=== PATIENT | female | born 1955 | race Two or more races ===

== ENCOUNTER 2020-08-25 08:22 | Outpatient (REF) | payer OTHER, SELFPAY ==
--- NOTE | 2020-08-25 | MM_ITS ---
EXAMINATION: MM SCREENING DIGITAL BREAST TOMOSYNTHESIS, BILATERAL CLINICAL INFORMATION: Screening. Asymptomatic. The lifetime risk of breast cancer based on the Tyrer-Cuzick Model is 8%. COMPARISON: Mammography: 04/13/2019, 03/27/2018, 05/19/2017 TECHNIQUE: Digital breast tomosynthesis is performed in both the craniocaudal and mediolateral oblique views along with computer-aided detection (CAD). Synthesized 2D images are generated from the tomosynthesis. Additional left MLO view is provided. FINDINGS: There are scattered areas of fibroglandular density (ACR BI-RADS breast composition Category b). There are no significant masses, abnormal calcifications, or other abnormalities. The axilla and skin contours are unremarkable. MM/MM tomosynthesis screening BI IMPRESSION: No significant changes from prior studies. ASSESSMENT: BI-RADS 1: Negative RECOMMENDATION: Routine annual mammography screening. This patient's information was entered into a reminder system with a target due date for their next mammogram.
== END 2020-08-25 08:23 | disposition home or self-care (01) ==
LOC: HO.MAMMO 08:22
PROVIDERS: PCP Internal Medicine; Visit Provider Internal Medicine
DX: Z12.31 Encounter for screening mammogram for malignant neoplasm of breast (principal)
CPT/HCPCS: 77063; 77067

== ENCOUNTER 2021-04-18 12:51 | Emergency (ER) | payer MEDICARE, SELFPAY ==
[2021-04-18 12:57] VITALS: BP 168/97; PULSE 75; RESP 16; TEMP 36.8; O2SAT 97; BMI 25.1
[2021-04-18 13:57] LABS: MANUAL DIFF FLAG NO
[2021-04-18 14:00] LABS: Glucose Urine UA NEG (NEG); Leukocyte Esterase Urine NEG (NEG); Nitrite Urine NEG (NEG); Specific Gravity - Urine >= 1.030 (1.005-1.025); Urine Blood TRACE (NEG); Urine Ketones NEG (NEG); Urine Protein NEG (NEG-TRACE)
[2021-04-18 14:00] LABS: Basophils Absolute Auto 0.1 X10*3/uL (0.0-0.2); Basophils Percent Auto 0.6 % (0-2); Eosinophils Absolute Auto 0.3 X10*3/uL (0.0-0.4); Eosinophils Percent Auto 3.5 % (0-4); Hematocrit 42.1 % (37-47); Hemoglobin 14.2 g/dl (12.0-16.0); Imm Gran Abs Auto 0.03 X10*3/uL (0.00-0.03); Imm Gran Pct Auto 0.3 % (0.0-0.4); Lymphocytes Absolute Auto 2.4 X10*3/uL (1.2-4.9); Lymphocytes Percent Auto 25.4 % (20-40); Mean Corpuscular HGB Conc 33.7 g/dl (31.0-35.0); Mean Corpuscular Hemoglobin 31.2 pg (27.0-33.0); Mean Corpuscular Volume 92.5 fL (80-98); Mean Platelet Volume 11.8 fL (9.4-12.3); Monocytes Absolute Auto 0.7 X10*3/uL (0.1-1.2); Monocytes Percent Auto 7.3 % (2-11); Neutrophils Percent Auto 62.9 % (45-73); Platelet Count 311 X10*3/uL (160-400); Red Blood Count 4.55 X10*6/uL (4.20-5.50); Red Cell Distribution Width 12.4 % (11.0-16.0); White Blood Count 9.5 X10*3/uL (4.8-10.8)
[2021-04-18 14:03] LABS: Appearance Urine HAZY; Color Urine YELLOW
[2021-04-18 14:21] LABS: COVID-19 Test Negative (Negative); IDNOW Serial# 9DD0AD1C
[2021-04-18 14:27] LABS: Anion Gap 11 (12-20); Blood Urea Nitrogen 15 mg/dL (9-16); Calcium 10.2 mg/dL (8.4-10.2); Carbon Dioxide 27 mmol/L (22-29); Chloride 106 mmol/L (96-108); Creatinine Clr Calc Pharmacy 68.3; Estimated Glomerular Filt Rate > 60; Glucose Random 98 mg/dL (60-115); Potassium 4.4 mmol/L (3.3-5.1); Sodium 140 mmol/L (135-145)
[2021-04-18 14:38] LABS: Bacteria Urine TRACE /LPF; Calcium Oxalate Crystals Urine 3+ /LPF; Mucus Urine 1+ /LPF; RBC Urine 0-2 /HPF (0); Squamous Epithelial Cell Urine TRACE /LPF; WBC Urine 0-2 /HPF (0-4)
--- NOTE | 2021-04-18 14:40 | ED_ITS ---
HPI - Weakness General Chief complaint: Weakness Stated complaint: weakness Time Seen by Provider: 04/18/21 13:50 Source: patient Mode of arrival: ambulatory Limitations: no limitations History of Present Illness HPI Narrative: 65-year-old female here with complaints of abnormal labs. Patient tells me that she was in [place] 3 weeks ago and was told that her kidney function was abnormal. She resides in [place]. She completed her vacation and returned here and would like her labs rechecked. She is complai yevgeniy of some fatigue but denies any other complaints. Related Data Previous Rx's Medication Instructions Recorded omeprazole 20 mg capsule,delayed 20 mg PO DAILY #90 cap 07/17/20 release ibuprofen 800 mg tablet 800 mg PO TID #90 tab 09/24/20 loratadine 10 mg tablet 10 mg PO DAILY PRN 90 Days #90 tab 10/18/20 Allergies Allergy/AdvReac Type Severity Reaction Status Date / Time Sulfa (Sulfonamide Allergy Unknown RASH Unverified 01/14/21 11:29 Antibiotics) [SULFA (SULFONAMIDE ANTIBIOTICS)] cats Allergy Unknown Uncoded 01/14/21 11:29 dust Allergy Unknown Uncoded 01/14/21 11:29 N.K.D.A. Allergy Unknown Uncoded 01/14/21 11:29 pollon Allergy Unknown Uncoded 01/14/21 11:29 Review of Systems Review of Systems: Yes all other systems are reviewed and are negative Constitutional: Constitutional: Reports no additional constitutional complaints, Denies body ache(s), Denies chills, Reports fatigue, Denies fever(s), Denies headache(s) and Denies weakness Eyes: Eyes: Reports no additional eye complaints and Denies change in vision ENT: Reports system reviewed and no additional complaints, except as documented, Denies dizziness, Denies headache(s), Denies nasal congestion, Denies nasal discharge and Denies neck pain Cardiovascular: Cardiovascular: Reports no additional cardiovascular c omplaints, Denies chest pain, Denies leg edema and Denies dyspnea Respiratory: Respiratory: Reports no additional respiratory complaints, Denies cough and Denies dyspnea Gastrointestinal: Gastrointestinal: Reports no additional gastrointestinal complaints, Denies abdominal pain, Denies diarrhea, Denies nausea and Denies vomiting Genitourinary: Genitourinary: Reports no additional female genitourinary complaints and Denies urinary incontinence Musculoskeletal: Musculoskeletal: Reports no additional musculoskeletal complaints, Denies back pain, Denies arthralgias, Denies joint swelling, Denies neck pain, Denies numbness and Denies tingling Integumentary/Breasts: Skin/Breast: Reports system reviewed and no additional complaints, except as docu and Denies rash Neurologic: Reports system reviewed and no additional complaints, except as documented, Denies Abnormal speech present, Denies dizziness, Denies headache(s), Denies numbness, Denies tingling and Denies weakness Endocrine: Endocrine: Reports fatigue [facility] Past Medical History Attestation statement: The following information was validated with the patient. Source: old records reviewed and nursing notes reviewed Medical History No known health problems Social History Social History Advance Directives: No Advance Directives Information Provided: No Physical Exam Vital Signs: Vital Signs: Last Vital Signs Temp 98.2 F 04/18/21 12:57 Pulse 75 04/18/21 12:57 Resp 16 04/18/21 12:57 BP 168/97 H 04/18/21 12:57 Pulse Ox 97 04/18/21 12:57 Body Mass Index 25.1 Const: General: cooperative, healthy appearing, comfortable and no acute distress Orientation/consciousness: patient oriented x3 Limitations: no limitations HENMT: Head: Yes normal to inspection Ears: hearing grossly normal bilaterally General nose exam: Normal external nose present Face and sinus: Yes normal facial exam Mouth: Normal oral and palatal mucosa present Throat: Yes posterior oropharynx normal Eyes: General: appearance normal, both eyes and all related structures Pupils: Equal, round and reactive pupils present Neck: Neck: Yes normal visual inspection Chest: Chest palpation & inspection: normal inspection of the chest Resp: Effort & Inspection: normal respiratory effort Auscultation: clear to auscultation bilaterally Cardio: Rate: regular rate Rhythm: regular rhythm Peripheral pulses: Peripheral pulses 2+ throughout GI: Inspection: Yes normal to inspection Palpation (GI): Soft to palpation and nontender Auscultation: normal bowel sounds Back/Spine/Pelvis: Thoracic/Lumbar Spine: thoracic and lumbar spine normal to inspection Skin: General skin exam: no rashes or lesions noted Neuro: General: patient oriented x3, no focal motor deficits and normal sensation to monofilament Cranial nerves: Yes Equal, round and reactive pupils present Cognition (Neuro): normal cognition Speech: No Abnormal speech present Gait exam (Neuro): Normal gait present Motor exam (neuro): 5/5 motor strength present throughout Extrem: General: Yes normal to inspection Course Course Course Narrative: 65-year-old female here looking for repeat renal function.. She tells me that she had her labs checked a couple weeks ago in [place] and was told that her kidney function was abnormal and she should get a recheck. Will recheck labs. Only complaint is fatigue. Hemodynamically stable. 1530-labs unremarkable. Reviewed with patient. Reviewed worrisome signs symptoms of when to return to the emergency department. Comfortable discharge home. MDM - Weakness Medical Records Attestation: I reviewed the patient's medical records. Lab Data Attestation: I reviewed the patient's lab results. Result diagrams: 04/18/21 13:45 04/18/21 13:45 Labs: Lab Results 04/18/21 04/18/21 04/18/21 Range/Units 13:35 13:45 13:45 WBC 9.5 (4.8-10.8) X10*3/uL RBC 4.55 (4.20-5.50) X10*6/uL Hgb 14.2 (12.0-16.0) g/dl Hct 42.1 (37-47) % MCV 92.5 (80-98) fL MCH 31.2 (27.0-33.0) pg MCHC 33.7 (31.0-35.0) g/dl RDW 12.4 (11.0-16.0) % Plt Count 311 (160-400) X10*3/uL MPV 11.8 (9.4-12.3) fL Immature Gran % (Auto) 0.3 (0.0-0.4) % Neut % (Auto) 62.9 (45-73) % Lymph % (Auto) 25.4 (20-40) % [place] % (Auto) 7.3 (2-11) % Eos % (Auto) 3.5 (0-4) % Baso % (Auto) 0.6 (0-2) % Lymph # (Auto) 2.4 (1.2-4.9) X10*3/uL [place] # (Auto) 0.7 (0.1-1.2) X10*3/uL Eos # (Auto) 0.3 (0.0-0.4) X10*3/uL Baso # (Auto) 0.1 (0.0-0.2) X10*3/uL Abs Immat Gran (auto) 0.03 (0.00-0.03) X10*3/uL Absolute Neuts (auto) 6.0 (2.0-8.3) X10*3/uL Absolute Nucleated RBC 0.000 (0.0-0.012) X10*3/uL Nucleated RBC % (auto) 0.0 (0.0-0.2) /100WBC Sodium 140 (135-145) mmol/L Potassium 4.4 (3.3-5.1) mmol/L Chloride 106 (96-108) mmol/L Carbon Dioxide 27 (22-29) mmol/L Anion Gap 11 L (12-20) BUN 15 (9-16) mg/dL Creatinine 0.78 (0.5-1.4) mg/dL Estim Creat Clear Calc 68.3 Estimated GFR > 60 Random Glucose 98 (60-115) mg/dL Calcium 10.2 (8.4-10.2) mg/dL Urine Color YELLOW Urine Appearance HAZY Urine pH 6.0 (5.0-8.0) Ur Specific Sal[place] Path >= 1.030 H (1.005-1.025) Urine Protein NEG (NEG-TRACE) MG/DL Urine Glucose (UA) NEG (NEG) MG/DL Urine Ketones NEG (NEG) MG/DL Urine Blood TRACE (NEG) Urine Nitrite NEG (NEG) Ur Leukocyte Esterase NEG (NEG) Urine RBC 0-2 (0) /HPF Urine WBC 0-2 (0-4) /HPF Ur Squamous Epith Cells TRACE /LPF Calcium Oxalate Crystal 3+ /LPF Urine Bacteria TRACE /LPF Urine Mucus 1+ /LPF COVID-19 (CRESCENCIO) (Negative) COVID-19 Clin Com 04/18/21 Range/Units 13:45 WBC (4.8-10.8) X10*3/uL RBC (4.20-5.50) X10*6/uL Hgb (12.0-16.0) g/dl Hct (37-47) % MCV (80-98) fL MCH (27.0-33.0) pg MCHC (31.0-35.0) g/dl RDW (11.0-16.0) % Plt Count (160-400) X10*3/uL MPV (9.4-12.3) fL Immature Gran % (Auto) (0.0-0.4) % Neut % (Auto) (45-73) % Lymph % (Auto) (20-40) % [place] % (Auto) (2-11) % Eos % (Auto) (0-4) % Baso % (Auto) (0-2) % Lymph # (Auto) (1.2-4.9) X10*3/uL [place] # (Auto) (0.1-1.2) X10*3/uL Eos # (Auto) (0.0-0.4) X10*3/uL Baso # (Auto) (0.0-0.2) X10*3/uL Abs Immat Gran (auto) (0.00-0.03) X10*3/uL Absolute Neuts (auto) (2.0-8.3) X10*3/uL Absolute Nucleated RBC (0.0-0.012) X10*3/uL Nucleated RBC % (auto) (0.0-0.2) /100WBC Sodium (135-145) mmol/L Potassium (3.3-5.1) mmol/L Chloride (96-108) mmol/L Carbon Dioxide (22-29) mmol/L Anion Gap (12-20) BUN (9-16) mg/dL Creatinine (0.5-1.4) mg/dL Estim Creat Clear Calc Estimated GFR Random Glucose (60-115) mg/dL Calcium (8.4-10.2) mg/dL Urine Color Urine Appearance Urine pH (5.0-8.0) Ur Specific Sal[place] Path (1.005-1.025) Urine Protein (NEG-TRACE) MG/DL Urine Glucose (UA) (NEG) MG/DL Urine Ketones (NEG) MG/DL Urine Blood (NEG) Urine Nitrite (NEG) Ur Leukocyte Esterase (NEG) Urine RBC (0) /HPF Urine WBC (0-4) /HPF Ur Squamous Epith Cells /LPF Calcium Oxalate Crystal /LPF Urine Bacteria /LPF Urine Mucus /LPF COVID-19 (CRESCENCIO) Negative (Negative) COVID-19 Clin Com See Note Discharge Plan Discharge Clinical Impression: Fatigue Patient Disposition: Home, Self-Care Instructions: Fatigue (ED) Additional Instructions: Lab work and COVID testing and urine are all negative. Follow-up with her primary care doctor Prescriptions: No Action omeprazole 20 mg capsule,delayed release(DR/EC) 20 mg PO DAILY Qty: 90 RF: 2 ibuprofen 800 mg tablet 800 mg PO TID Qty: 90 RF: 3 loratadine 10 mg tablet 10 mg PO DAILY PRN (Reason: allergy symptoms) 90 Days Qty: 90 RF: 3 Referrals: Jennie Rodriguez MD [Primary Care Provider] - 2 days Interventions: ED Discharge Assessment Last Done: 04/18/21 15:21 Discharge Date/Time: 04/18/21 15:21 Print Language: German
== END 2021-04-18 15:21 | disposition home or self-care (01) ==
PROVIDERS: Emergency Provider Emergency Medicine; PCP Internal Medicine
DX: R53.83 Other fatigue (principal); Z20.822 Contact with and (suspected) exposure to COVID-19
CPT/HCPCS: 36415; 80048; 81001; 81003; 85025; 87635; 99283; 99284

== ENCOUNTER 2022-02-21 08:58 | Outpatient (REF) | payer OTHER, SELFPAY ==
--- NOTE | ~2022-02-21 | MR_ITS ---
EXAMINATION: MRI BRAIN WITHOUT CONTRAST CLINICAL INFORMATION: 66-year-old with history of previous trauma. Headaches, unspecified. COMPARISON: None. TECHNIQUE: Multiplanar multisequence MR imaging of the brain was done without IV contrast. FINDINGS: Brain Volume: Within normal limits within the limitations of a qualitative assessment. Structural: No malformations. Brain and Meninges: DWI sequence demonstrates no restricted diffusion. Specifically, there is no evidence for acute or subacute cerebral ischemia. Scattered patchy and punctate foci of FLAIR/T2 signal hyperintensity noted in the subcortical and deeper periventricular white matter of both cerebral hemispheres, likely reflecting chronic ischemic microangiopathy. Gradient refocused imaging demonstrates no evidence for hemorrhage, hemosiderin staining or abnormal mineral deposition. No extra-axial fluid collections, space-occupying process or mass effect are identified. Ventricles and Subarachnoid Spaces: The ventricular system and subarachnoid spaces are within normal limits without hydrocephalus. Orbital Structures: The visualized orbital structures are grossly unremarkable within the limitations of the study. Vascular: Signal voids are noted in the visualized major intracranial vessels. Osseous Structures, Sinuses/Mastoids, Extracranial Soft Tissues: Nonspecific retained secretions in the right mastoid are noted. Osseous marrow signal intensity appears homogenous. MR/MR head/brain wo con IMPRESSION: 1. Findings consistent with chronic ischemic microangiopathy in the white matter of both cerebral hemispheres with no evidence for acute or subacute cerebral ischemia, hemorrhage, extra-axial fluid collection, space-occupying process, mass effect or hydrocephalus. 2. Nonspecific retained secretions in the right mastoid.
== END 2022-02-21 08:59 | disposition home or self-care (01) ==
LOC: HO.MRI 08:58
PROVIDERS: PCP Internal Medicine; Visit Provider Internal Medicine
DX: R51.9 Headache, unspecified (principal)
CPT/HCPCS: 70551

== ENCOUNTER 2022-08-09 07:04 | Outpatient (REF) | payer OTHER, SELFPAY ==
[2022-08-09 07:50] LABS: Alanine Aminotransferase 29 U/L (0-31); Albumin Level 4.3 g/dL (3.5-5.0); Alkaline Phosphatase 105 U/L (39-117); Anion Gap 14 (12-20); Aspartate Amino Transferase 22 U/L (5-31); Bilirubin Total 0.5 mg/dL (0.0-1.0); Blood Urea Nitrogen 12 mg/dL (9-16); Calcium 9.8 mg/dL (8.4-10.2); Carbon Dioxide 25 mmol/L (22-29); Chloride 106 mmol/L (96-108); Cholesterol 181 mg/dL; Estimated Glomerular Filt Rate > 60; Glucose Fasting 101 mg/dL (60-99); HDL Cholesterol 53 mg/dL; LDL Cholesterol Calculated 109 mg/dl; Potassium 4.5 mmol/L (3.3-5.1); Sodium 140 mmol/L (135-145); Total Protein 7.7 g/dL (6.5-8.0); Triglycerides 96 mg/dL
[2022-08-09 08:13] LABS: Thyroid Stimulating Hormone 1.64 uIU/mL (0.32-4.0)
== END 2022-08-09 07:05 | disposition home or self-care (01) ==
LOC: HO.LAB 07:04
PROVIDERS: Visit Provider Internal Medicine
DX: E66.3 Overweight (principal); E78.5 Hyperlipidemia, unspecified
CPT/HCPCS: 36415; 80053; 80061; 84443

== ENCOUNTER 2022-09-13 07:33 | Outpatient (REF) | payer OTHER, SELFPAY ==
--- NOTE | ~2022-09-13 | MM_ITS ---
EXAMINATION: BONE DENSITOMETRY CLINICAL INDICATION: Menopause. COMPARISON: Baseline BD dated 02/28/2014. TECHNIQUE: Using a [employer] DXA System (software version: 13.1) manufactured by [employer], dual-energy x-ray absorptiometry was performed of the lumbar spine and left hip. The images are of good technical quality. Summary results are attached. FINDINGS: AP SPINE L1-L4: Current: BMD 0.953 g/cm2, Z-score -0.7, T-score -1.9, osteopenia, 3.9% decrease from baseline (<5% change is not significant). Baseline: BMD 0.992 g/cm2. LEFT FEMUR, NECK: Current: BMD 0.843 g/cm2, Z-score -0.2, T-score -1.4, osteopenia. Baseline: BMD 0.972 g/cm2. LEFT FEMUR, TOTAL: Current: BMD 0.932 g/cm2, Z-score 0.3, T-score -0.6, normal, 6.1% decrease from baseline (<5% change is not significant). Baseline: BMD 0.993 g/cm2. IDENTIFIED RISK FACTORS: Menopause, osteoporosis, rheumatoid arthritis. HISTORY OF FRACTURE: None listed. MEDICATIONS: Vitamin D. MM/XR DEXA axial skeleton IMPRESSION: 1. DIAGNOSIS: Osteopenia based on the lowest T-score value of -1.9 in the lumbar spine applying World Health Organization criteria. 2. 10-YEAR FRACTURE RISK PREDICTION, FRAX: Major osteoporotic fracture (clinical spine, forearm, hip or shoulder) 6.2%. Hip fracture 0.7%. 3. Treatment Recommendations: NOF guidelines recommend consideration for treatment in postmenopausal women and men age 50 and older presenting with the following: -A hip or vertebral (clinical or morphometric) fracture. -T-score less than or equal to -2.5 at the femoral neck or spine after appropriate evaluation to exclude secondary causes. -Low bone mass at the hip or spine and a 10-year fracture probability by FRAX of greater than or equal to 3% for hip fracture or greater than or equal to 20% for major osteoporotic fracture based on the [place] adapted WHO algorithm. 4. Other Recommendations: All treatment decisions require clinical judgment and consideration of individual patient factors, including patient preferences, comorbidities, previous drug use, risk factors not captured in the FRAX model (e.g. frailty, falls, vitamin D deficiency, increased bone turnover, interval significant decline in bone density) and possible under or overestimation of fracture risk by FRAX. Additional medical evaluation for secondary cause of low bone mineral density may be appropriate. FUTURE SCAN RECOMMENDATION: People with diagnosed cases of osteoporosis or at high risk for fracture should have regular bone mineral density tests. For patients eligible for Medicare, routine testing is allowed once every 2 years. The testing frequency can be increased to one year for patients who have rapidly progressing disease, those who are receiving or discontinuing medical therapy to restore bone mass, or have additional risk factors.
--- NOTE | ~2022-09-13 | MM_ITS ---
EXAMINATION: MM SCREENING DIGITAL BREAST TOMOSYNTHESIS, BILATERAL CLINICAL INFORMATION: Screening. Asymptomatic. The lifetime risk of breast cancer based on the Tyrer-Cuzick Model is 7%. COMPARISON: Mammography: 03/13/2021 ([facility]aud[facility], [place]), 08/25/2020, 04/13/2019 TECHNIQUE: Digital breast tomosynthesis is performed in both the craniocaudal and mediolateral oblique views along with computer-aided detection (CAD). Synthesized 2D images are generated from the tomosynthesis. FINDINGS: There are scattered areas of fibroglandular density (ACR BI-RADS breast composition Category b). There are no significant masses, abnormal calcifications, or other abnormalities. Background stromal and fibroglandular densities are similar to prior studies. No developing density or interval architectural abnormality. There is a dermal lesion again noted anterior lower inner right breast similar to prior studies. The axilla are unremarkable. No significant changes. MM/MM tomosynthesis screening BI IMPRESSION: No mammographic evidence of malignancy. ASSESSMENT: BI-RADS 2: Benign RECOMMENDATION: Routine annual mammography screening. This patient's information was entered into a reminder system with a target due date for their next mammogram.
== END 2022-09-13 07:34 | disposition home or self-care (01) ==
LOC: HO.MAMMO 07:33
PROVIDERS: PCP Internal Medicine; Visit Provider Internal Medicine
DX: Z12.31 Encounter for screening mammogram for malignant neoplasm of breast (principal); Z13.820 Encounter for screening for osteoporosis; Z78.0 Asymptomatic menopausal state
CPT/HCPCS: 77063; 77067; 77080

== ENCOUNTER 2022-10-04 13:09 | Emergency (ER) | payer OTHER, SELFPAY ==
--- NOTE | ~2022-10-04 | XR_ITS ---
EXAMINATION: XR CHEST CLINICAL INFORMATION: Cough COMPARISON: Chest radiographs 07/16/2017, 01/07/2013 TECHNIQUE: 2 views of the chest were obtained. FINDINGS: There is no airspace consolidation or air bronchograms. No groundglass opacity or effusion. The heart is normal in size. The hilar and mediastinal contours and bony structures are unremarkable. XR/XR chest 2V IMPRESSION: Unremarkable examination.
--- NOTE | ~2022-10-04 | XR_ITS ---
EXAMINATION: XR SOFT TISSUE NECK CLINICAL INDICATION: Difficulty swallowing. Cough. COMPARISON: None TECHNIQUE: 2 views of the soft tissue neck were obtained. FINDINGS: There is normal vallecula, epiglottis, and area epiglottic folds. Subglottic airway is unremarkable. No prevertebral soft tissue swelling. There is straightening of the cervical lordosis. Vertebral bodies are normal in height. There are degenerative disc changes C5-C6 and lesser at C4-C5. The lung apices are clear. XR/XR soft tissue neck IMPRESSION: Unremarkable soft tissue neck.
[2022-10-04 14:35] VITALS: BP 219/123; PULSE 100; RESP 19; TEMP 36.6; O2SAT 98; BMI 29.2
--- NOTE | 2022-10-04 14:36 | ED.URI ---
HPI - URI/Sore Throat General Chief Complaint: General Medical <Jasmyne Watson CNP - Last Filed: 10/04/22 14:41> Stated Complaint: dry mouth, sore throat <Jasmyne Watson CNP - Last Filed: 10/04/22 14:41> Time Seen by Provider: 10/04/22 15:56 <Jasmyne Watson CNP - Last Filed: 10/04/22 14:41> Source: patient <Lexis López NP - Last Filed: 10/05/22 00:15> Mode of arrival: ambulatory <RUI George Last Filed: 10/05/22 00:15> Limitations: no limitations <RUI George Last Filed: 10/05/22 00:15> History of Present Illness HPI Narrative: 66-year-old female presents for one-month of upper respiratory symptoms, sore throat, dry mouth, difficulty swallowing because of pain, sinus pressure, and cough. She does not report fevers, chills, abdominal pain, nausea, vomiting, diarrhea, chest pain or pressure, palpitations, or shortness of breath on exertion. <Lexis López NP - Last Filed: 10/05/22 00:15> MD elicited complaint: cough, sore throat and nasal congestion <RUI George Last Filed: 10/05/22 00:15> Onset (ago): month(s) (1) <RUI George Last Filed: 10/05/22 00:15> Consistency: constant and progressively worsening <RUI George Last Filed: 10/05/22 00:15> Severity: moderate <RUI George Last Filed: 10/05/22 00:15> Description of mucous: clear <RUI George Last Filed: 10/05/22 00:15> Able to tolerate fluids by mouth: Yes <RUI George Last Filed: 10/05/22 00:15> Exacerbating factors: swallowing, speaking and deep breaths <RUI George Last Filed: 10/05/22 00:15> Relieving factors: nothing <Lexis López NP - Last Filed: 10/05/22 00:15> Context: sick contacts <Lexis López NP - Last Filed: 10/05/22 00:15> Associated symptoms: voice changes, headache, rhinorrhea, nasal congestion, sore throat and cough <Lexis López NP - Last Filed: 10/05/22 00:15> Treatments prior to arrival: none <Lexis López NP - Last Filed: 10/05/22 00:15> Related Data Home Medications: Previous Rx's Medication Instructions Recorded loratadine 10 mg tablet 10 mg PO DAILY PRN allergy 05/22/22 symptoms 90 days #90 tabs ibuprofen 800 mg tablet 800 mg PO Q8H PRN pain 30 days #90 05/23/22 tabs omeprazole 20 mg capsule,delayed 20 mg PO DAILY 90 days #90 caps 05/23/22 release fluticasone propionate 50 1 spray intranasal DAILY #16 mL 08/11/22 mcg/actuation nasal spray,suspension calcium carbonate 500 mg calcium 500 mg PO BID 90 days #180 tabs 09/14/22 (1,250 mg) tablet (Oyster Shell Calcium) cholecalciferol (vitamin D3) 50 50 mcg PO DAILY 90 days #90 tabs 09/14/22 mcg (2,000 unit) tablet azithromycin 250 mg tablet 250 mg PO DAILY 4 days #4 tabs 10/04/22 <Jasmyne Watson CNP - Last Filed: 10/04/22 14:41> Allergies/Adverse Reactions: Allergies Allergy/AdvReac Type Severity Reaction Status Date / Time Sulfa (Sulfonamide Allergy Intermediate RASH Verified 01/24/22 16:34 Antibiotics) [SULFA (SULFONAMIDE ANTIBIOTICS)] cats Allergy Intermediate rash Uncoded 01/24/22 16:34 dust Allergy Intermediate rash, itch Uncoded 01/24/22 16:34 pollon Allergy Intermediate rash, itch Uncoded 01/24/22 16:34 <Jasmyne Watson CNP - Last Filed: 10/04/22 14:41> Review of Systems Review of Systems: Constitutional: No Fever, no Chills, positive fatigue, positive Malaise ENT/Mouth: positive sore throat, positive runny nose, positive sinus pressure Eyes: No Discharge Cardiovascular: No Chest Pain, No SOB Respiratory: Positive Cough, No Sputum, No Wheezing, No Dyspnea Gastrointestinal: No Nausea, No Vomiting, No Diarrhea Musculoskeletal: positive Myalgia Skin: No rash Neuro: No Headache <Lexis Lpóez NP - Last Filed: 10/05/22 00:15> Yes all other systems are reviewed and are negative <Lexis López NP - Last Filed: 10/05/22 00:15> PMFSH Past Medical History Attestation statement: The following information was validated with the patient. <Lexis López NP - Last Filed: 10/05/22 00:15> Source: old records reviewed <Lexis López NP - Last Filed: 10/05/22 00:15> Medical History: Medical History Allergic rhinitis Chronic fatigue Daily headache Elevated blood pressure reading without diagnosis of hypertension GERD (gastroesophageal reflux disease) Hypovitaminosis D Muscle spasm Overweight (BMI 25.0-29.9) Skin lesion <Jasmyne Watson CNP - Last Filed: 10/04/22 14:41> Surgical History: Surgical History No pertinent past surgical history <Jasmyne Watson CNP - Last Filed: 10/04/22 14:41> Family History Family History: Family History Mother No problems noted. Father Diabetes Other Mental health disorder <Jasmyne Watson CNP - Last Filed: 10/04/22 14:41> Social History Social History: Social History Housing: Apartment Alcohol intake: never Patient Tobacco Use Status: Former Tobacco user Tobacco use type: Cigarette Smoked in Last 30 Days: No e-Cigarette/Vaping Use: Never Used Second Hand Smoke Exposure: No Use of substances other than those prescribed or required for medical reasons: No Any prior treatment program specific to substance use: No Advance Directives: No Advance Directives Information Provided: No service: No Current occupational status: disabled Cognitive needs: No Hearing needs: No Vision needs: Yes <Jasmyne Watson CNP - Last Filed: 10/04/22 14:41> Physical Exam Vital Signs: Vital Signs: Last Vital Signs Temp 98.2 F 10/04/22 15:09 Pulse 94 10/04/22 15:09 Resp 12 10/04/22 15:09 BP 207/112 H 10/04/22 15:09 Pulse Ox 97 10/04/22 15:09 O2 Del Method 10/04/22 15:09 BMI result Body Mass Index 29.2 <Jasmyne WatsonMELISA - Last Filed: 10/04/22 14:41> Vital Signs: Last Vital Signs Temp 98.2 F 10/04/22 15:09 Pulse 94 10/04/22 15:09 Resp 12 10/04/22 15:09 BP 207/112 H 10/04/22 15:09 Pulse Ox 97 10/04/22 15:09 O2 Del Method 10/04/22 15:09 BMI result Body Mass Index 29.2 <Lexis López NP - Last Filed: 10/05/22 00:15> Appearance: Alert. Oriented X3. No acute distress. Eyes: Pupils equal, round and reactive to light. ENT: Pharynx normal. Tenderness to the maxillary sinuses. No mastoid tenderness. Neck: Normal inspection. Neck supple. No vertebral tenderness or step-offs. CVS: Normal heart rate and rhythm. Pulses normal. Respiratory: No respiratory distress. Breath sounds normal. Abdomen: Soft and nontender. Skin: Skin warm and dry. Normal skin color. Normal skin turgor. Extremities: No lower extremity edema. Gait well balance well coordinated. Neuro: No motor deficit. No sensory deficit. Cranial nerves 2-12 intact. <Lexis López NP - Last Filed: 10/05/22 00:15> Course Course Course Narrative: This is an RME: Additional HPI, ROS, PE not included below will be deferred to primary provider. Patient is a 66-year-old female who presents emergency department complaints of sore throat, intermittent difficulty swallowing, and dry mouth x 1 month, also reporting cough with bloody sputum, congestion. She states at times she feels like yesterday swollen, and she is a thyroid nodule, has not followed up in regards to this. Noted to be hypertensive denies history of this. Plan: Labs, EKG, viral testing, XR chest, XR soft tissue neck <Jasmyne Watson CNP - Last Filed: 10/04/22 14:41> This is an RME: Additional HPI, ROS, PE not included below will be deferred to primary provider. Patient is a 66-year-old female who presents emergency department complaints of sore throat, intermittent difficulty swallowing, and dry mouth x 1 month, also reporting cough with bloody sputum, congestion. She states at times she feels like yesterday swollen, and she is a thyroid nodule, has not followed up in regards to this. Noted to be hypertensive denies history of this. Plan: Labs, EKG, viral testing, XR chest, XR soft tissue neck 17:27 x-rays are negative for acute findings requiring emergent intervention. Will treat for sinusitis with azithromycin. No indication of epiglottitis or abscesses. Patient does understand that she must control her blood pressure, although she is not interested and taking blood pressure medications at this time. I did have multiple conversations with her regarding her elevated blood pressures, and will refer her back to her primary care physician for hypertension. She does understand she is higher risk for stroke and organ dysfunction if she does not control her blood pressure. Patient verbalized understanding of and agrees to plan of care discharge home. Verbalized understanding of signs symptoms indicating need for emergent intervention. motor vehicle parts interpreter utilized for all corresponded. Google translate utilize her discharge instructions. <Lexis López NP - Last Filed: 10/05/22 00:15> Medical Decision Making Differential Diagnosis Differential Diagnoses: The differential diagnosis associated with the presentation includes <Lexis López NP - Last Filed: 10/05/22 00:15> URI, sinusitis, COVID, influenza, RSV <Lexis López NP - Last Filed: 10/05/22 00:15> Lab Data MDM Lab Attestation statement: I reviewed the patient's lab results. <Lexis López NP - Last Filed: 10/05/22 00:15> Result Diagrams: 10/04/22 14:56 10/04/22 14:56 <Jasmyne Watson CNP - Last Filed: 10/04/22 14:41> Labs: Lab Results 01/06/23 01/06/23 01/06/23 Range/Units 14:50 14:50 14:56 WBC 12.8 H (4.8-10.8) X10*3/uL RBC 4.62 (4.20-5.50) X10*6/uL Hgb 14.1 (12.0-16.0) g/dl Hct 41.9 (37.0-47.0) % MCV 90.7 (80.0-98.0) fL MCH 30.5 (27.0-33.0) pg MCHC 33.7 (31.0-35.0) g/dl RDW 12.9 (11.0-16.0) % Plt Count 321 (160-400) X10*3/uL MPV 10.8 (9.4-12.3) fL Immature Gran % (Auto) 0.3 (0.0-0.4) % Neut % (Auto) 58.0 (45-73) % Lymph % (Auto) 28.1 (20-40) % [place] % (Auto) 8.2 (2-11) % Eos % (Auto) 4.6 H (0-4) % Baso % (Auto) 0.8 (0-2) % Lymph # (Auto) 3.6 (1.2-4.9) X10*3/uL [place] # (Auto) 1.1 (0.1-1.2) X10*3/uL Eos # (Auto) 0.6 H (0.0-0.4) X10*3/uL Baso # (Auto) 0.1 (0.0-0.2) X10*3/uL Abs Immat Gran (auto) 0.04 H (0.00-0.03) X10*3/uL Absolute Neuts (auto) 7.4 (2.0-8.3) x10*3/uL Absolute Nucleated RBC 0.000 (0.0-0.012) X10*3/uL Nucleated RBC % (auto) 0.0 (0.0-0.2) /100WBC Sodium (135-145) mmol/L Potassium (3.3-5.1) mmol/L Chloride (96-108) mmol/L Carbon Dioxide (22-29) mmol/L Anion Gap (12-20) BUN (9-16) mg/dL Creatinine (0.5-1.4) mg/dL Estim Creat Clear Calc Estimated GFR Random Glucose (60-115) mg/dL Calcium (8.4-10.2) mg/dL Total Bilirubin (0.0-1.0) mg/dL AST (5-31) U/L ALT (0-31) U/L Alkaline Phosphatase (39-117) U/L Troponin I High Sens (<3.5-17.0) ng/L Total Protein (6.5-8.0) g/dL Albumin (3.5-5.0) g/dL Lipase (8-78) U/L TSH (0.32-4.0) uIU/mL COVID-19 (CRESCENCIO) Negative (Negative) COVID-19 Clin Com See Note Influenza Type A (NATHAN) Negative (Negative) Influenza Type B (NATHAN) Negative (Negative) Influenza A & B Note See Note 10/04/22 10/04/22 10/04/22 Range/Units 14:56 14:56 14:56 WBC (4.8-10.8) X10*3/uL RBC (4.20-5.50) X10*6/uL Hgb (12.0-16.0) g/dl Hct (37.0-47.0) % MCV (80.0-98.0) fL MCH (27.0-33.0) pg MCHC (31.0-35.0) g/dl RDW (11.0-16.0) % Plt Count (160-400) X10*3/uL MPV (9.4-12.3) fL Immature Gran % (Auto) (0.0-0.4) % Neut % (Auto) (45-73) % Lymph % (Auto) (20-40) % [place] % (Auto) (2-11) % Eos % (Auto) (0-4) % Baso % (Auto) (0-2) % Lymph # (Auto) (1.2-4.9) X10*3/uL [place] # (Auto) (0.1-1.2) X10*3/uL Eos # (Auto) (0.0-0.4) X10*3/uL Baso # (Auto) (0.0-0.2) X10*3/uL Abs Immat Gran (auto) (0.00-0.03) X10*3/uL Absolute Neuts (auto) (2.0-8.3) x10*3/uL Absolute Nucleated RBC (0.0-0.012) X10*3/uL Nucleated RBC % (auto) (0.0-0.2) /100WBC Sodium 144 (135-145) mmol/L Potassium 4.6 (3.3-5.1) mmol/L Chloride 108 (96-108) mmol/L Carbon Dioxide 29 (22-29) mmol/L Anion Gap 12 (12-20) BUN 21 H (9-16) mg/dL Creatinine 0.77 (0.5-1.4) mg/dL Estim Creat Clear Calc 73.2 Estimated GFR > 60 Random Glucose 94 (60-115) mg/dL Calcium 10.3 H (8.4-10.2) mg/dL Total Bilirubin 0.3 (0.0-1.0) mg/dL AST 15 (5-31) U/L ALT 20 (0-31) U/L Alkaline Phosphatase 112 (39-117) U/L Troponin I High Sens < 3.5 (<3.5-17.0) ng/L Total Protein 7.5 (6.5-8.0) g/dL Albumin 4.1 (3.5-5.0) g/dL Lipase 29 (8-78) U/L TSH 1.45 (0.32-4.0) uIU/mL COVID-19 (CRESCENCIO) (Negative) COVID-19 Clin Com Influenza Type A (NATHAN) (Negative) Influenza Type B (NATHAN) (Negative) Influenza A & B Note <Jasmyne Watson CNP - Last Filed: 10/04/22 14:41> Lab Results 10/04/22 10/04/22 10/04/22 Range/Units 14:50 14:50 14:56 WBC 12.8 H (4.8-10.8) X10*3/uL RBC 4.62 (4.20-5.50) X10*6/uL Hgb 14.1 (12.0-16.0) g/dl Hct 41.9 (37.0-47.0) % MCV 90.7 (80.0-98.0) fL MCH 30.5 (27.0-33.0) pg MCHC 33.7 (31.0-35.0) g/dl RDW 12.9 (11.0-16.0) % Plt Count 321 (160-400) X10*3/uL MPV 10.8 (9.4-12.3) fL Immature Gran % (Auto) 0.3 (0.0-0.4) % Neut % (Auto) 58.0 (45-73) % Lymph % (Auto) 28.1 (20-40) % [place] % (Auto) 8.2 (2-11) % Eos % (Auto) 4.6 H (0-4) % Baso % (Auto) 0.8 (0-2) % Lymph # (Auto) 3.6 (1.2-4.9) X10*3/uL [place] # (Auto) 1.1 (0.1-1.2) X10*3/uL Eos # (Auto) 0.6 H (0.0-0.4) X10*3/uL Baso # (Auto) 0.1 (0.0-0.2) X10*3/uL Abs Immat Gran (auto) 0.04 H (0.00-0.03) X10*3/uL Absolute Neuts (auto) 7.4 (2.0-8.3) x10*3/uL Absolute Nucleated RBC 0.000 (0.0-0.012) X10*3/uL Nucleated RBC % (auto) 0.0 (0.0-0.2) /100WBC Sodium (135-145) mmol/L Potassium (3.3-5.1) mmol/L Chloride (96-108) mmol/L Carbon Dioxide (22-29) mmol/L Anion Gap (12-20) BUN (9-16) mg/dL Creatinine (0.5-1.4) mg/dL Estim Creat Clear Calc Estimated GFR Random Glucose (60-115) mg/dL Calcium (8.4-10.2) mg/dL Total Bilirubin (0.0-1.0) mg/dL AST (5-31) U/L ALT (0-31) U/L Alkaline Phosphatase (39-117) U/L Troponin I High Sens (<3.5-17.0) ng/L Total Protein (6.5-8.0) g/dL Albumin (3.5-5.0) g/dL Lipase (8-78) U/L TSH (0.32-4.0) uIU/mL COVID-19 (CRESCENCIO) Negative (Negative) COVID-19 Clin Com See Note Influenza Type A (NATHAN) Negative (Negative) Influenza Type B (NATHAN) Negative (Negative) Influenza A & B Note See Note 10/04/22 10/04/22 10/04/22 Range/Units 14:56 14:56 14:56 WBC (4.8-10.8) X10*3/uL RBC (4.20-5.50) X10*6/uL Hgb (12.0-16.0) g/dl Hct (37.0-47.0) % MCV (80.0-98.0) fL MCH (27.0-33.0) pg MCHC (31.0-35.0) g/dl RDW (11.0-16.0) % Plt Count (160-400) X10*3/uL MPV (9.4-12.3) fL Immature Gran % (Auto) (0.0-0.4) % Neut % (Auto) (45-73) % Lymph % (Auto) (20-40) % [place] % (Auto) (2-11) % Eos % (Auto) (0-4) % Baso % (Auto) (0-2) % Lymph # (Auto) (1.2-4.9) X10*3/uL [place] # (Auto) (0.1-1.2) X10*3/uL Eos # (Auto) (0.0-0.4) X10*3/uL Baso # (Auto) (0.0-0.2) X10*3/uL Abs Immat Gran (auto) (0.00-0.03) X10*3/uL Absolute Neuts (auto) (2.0-8.3) x10*3/uL Absolute Nucleated RBC (0.0-0.012) X10*3/uL Nucleated RBC % (auto) (0.0-0.2) /100WBC Sodium 144 (135-145) mmol/L Potassium 4.6 (3.3-5.1) mmol/L Chloride 108 (96-108) mmol/L Carbon Dioxide 29 (22-29) mmol/L Anion Gap 12 (12-20) BUN 21 H (9-16) mg/dL Creatinine 0.77 (0.5-1.4) mg/dL Estim Creat Clear Calc 73.2 Estimated GFR > 60 Random Glucose 94 (60-115) mg/dL Calcium 10.3 H (8.4-10.2) mg/dL Total Bilirubin 0.3 (0.0-1.0) mg/dL AST 15 (5-31) U/L ALT 20 (0-31) U/L Alkaline Phosphatase 112 (39-117) U/L Troponin I High Sens < 3.5 (<3.5-17.0) ng/L Total Protein 7.5 (6.5-8.0) g/dL Albumin 4.1 (3.5-5.0) g/dL Lipase 29 (8-78) U/L TSH 1.45 (0.32-4.0) uIU/mL COVID-19 (CRESCENCIO) (Negative) COVID-19 Clin Com Influenza Type A (NATHAN) (Negative) Influenza Type B (NATHAN) (Negative) Influenza A & B Note <Lexis López NP - Last Filed: 10/05/22 00:15> Independent Interpretation I performed an independent interpretation of an: EKG and Plain X-Ray <Lexis López NP - Last Filed: 10/05/22 00:15> Interpretation: Vent. rate 91 BPM WV interval 152 ms QRS duration 82 ms QT/QTc 354/435 ms P-R-T axes 56 -4 4 Normal sinus rhythm Normal ECG No previous ECGs available 04-OCT-2022 15:49:48 <Lexis López NP - Last Filed: 10/05/22 00:15> Radiology Impression Discussion of test interpretation with radiology: I have reviewed the radiologist's reading. <Lexis López NP - Last Filed: 10/05/22 00:15> Radiologist Impression: EXAMINATION: XR CHEST CLINICAL INFORMATION: Cough COMPARISON: Chest radiographs 07/16/2017, 01/07/2013 TECHNIQUE: 2 views of the chest were obtained. FINDINGS: There is no airspace consolidation or air bronchograms. No groundglass opacity or effusion. The heart is normal in size. The hilar and mediastinal contours and bony structures are unremarkable. XR/XR chest 2V IMPRESSION: Unremarkable examination. EXAMINATION: XR SOFT TISSUE NECK CLINICAL INDICATION: Difficulty swallowing. Cough. COMPARISON: None TECHNIQUE: 2 views of the soft tissue neck were obtained.? FINDINGS: There is normal vallecula, epiglottis, and area epiglottic folds. Subglottic airway is unremarkable. No prevertebral soft tissue swelling. There is straightening of the cervical lordosis. Vertebral bodies are normal in height. There are degenerative disc changes C5-C6 and lesser at C4-C5. The lung apices are clear. XR/XR soft tissue neck IMPRESSION: Unremarkable soft tissue neck.? <Lexis López NP - Last Filed: 10/05/22 00:15> External Record Review External record reviewed: Outpatient record and Prior outpatient labs <Lexis López NP - Last Filed: 10/05/22 00:15> Prescription Management I considered prescription management with: Other <Lexis López NP - Last Filed: 10/05/22 00:15> Considered antihypertensives however patient is adamantly against taking medication <Lexis López NP - Last Filed: 10/05/22 00:15> Chronic Conditions Patient?s care impacted by: Hypertension <RUI George Last Filed: 10/05/22 00:15> Discharge Plan Discharge Clinical Impression: URI (upper respiratory infection), Sinusitis, Hypertension <Jasmyne Watson CNP - Last Filed: 10/04/22 14:41> Patient Disposition: Home, Self-Care <Jasmyne Watson CNP - Last Filed: 10/04/22 14:41> Instructions: Sinusitis (ED), Heart Healthy Diet (ED), Viral Syndrome (ED), Low-Sodium Diet (ED), Hypertension (ED) <Jasmyne Watson CNP - Last Filed: 10/04/22 14:41> Additional Instructions: You were evaluated for upper respiratory symptoms. We are treating you for sinusitis. We did your 1st dose of azithromycin in the emergency department. Please start your azithromycin tomorrow, azithromycin 250 mg for the next 4 days. Drink plenty of fluids. Alternate Tylenol 650 mg every 6 hours and Motrin 600 mg every 6 hours as needed for pain and fever management. Consider taking these medications 3 hours apart so you have pain and fever management every 3 hours. Write down what time you take these medications to prevent accidental overdose. You must follow-up with primary care physician for elevated blood pressure. You should consider taking blood pressure medications if your primary care physician feels you need them. Thank you for choosing this emergency department for evaluation. Please follow-up with primary care physician as needed. Return to the emergency department for any new, concerning, or worsening symptoms. <Jasmyne Watson CNP - Last Filed: 10/04/22 14:41> Prescriptions: New azithromycin 250 mg tablet 250 mg PO DAILY 4 Days Qty: 4 0RF Rx Instructions: start on day 2 of therapy No Action loratadine 10 mg tablet 10 mg PO DAILY PRN (Reason: allergy symptoms) 90 Days Qty: 90 3RF ibuprofen 800 mg tablet 800 mg PO Q8H PRN (Reason: pain) 30 Days Qty: 90 1RF omeprazole 20 mg capsule,delayed release(DR/EC) 20 mg PO DAILY 90 Days Qty: 90 1RF fluticasone propionate 50 mcg/actuation spray,suspension 1 spray intranasal DAILY Qty: 16 1RF calcium carbonate [Oyster Shell Calcium] 500 mg calcium (1,250 mg) tablet 500 mg PO BID 90 Days Qty: 180 1RF cholecalciferol (vitamin D3) 50 mcg (2,000 unit) tablet 50 mcg PO DAILY 90 Days Qty: 90 1RF <Jasmyne Watson CNP - Last Filed: 10/04/22 14:41> Interventions: ED Discharge Assessment Last Done: 10/04/22 17:42 <Jasmyne Watson CNP - Last Filed: 10/04/22 14:41> Discharge Date/Time: 10/04/22 17:44 <Jasmyne Watson CNP - Last Filed: 10/04/22 14:41>
--- NOTE | 2022-10-04 14:40 | ECG_ITS ---
Test Reason : HIGH BP Blood Pressure : / mmHG Vent. Rate : 091 BPM Atrial Rate : 091 BPM P-R Int : 152 ms QRS Dur : 082 ms QT Int : 354 ms P-R-T Axes : 056 -04 004 degrees QTc Int : 435 ms Normal sinus rhythm Normal ECG No previous ECGs available Referred By: Jasmyne Watson Electronically Signed By:ADRIANA CAIN
[2022-10-04 15:02] LABS: MANUAL DIFF FLAG NO
[2022-10-04 15:03] LABS: Basophils Absolute Auto 0.1 X10*3/uL (0.0-0.2); Basophils Percent Auto 0.8 % (0-2); Eosinophils Absolute Auto 0.6 X10*3/uL (0.0-0.4); Eosinophils Percent Auto 4.6 % (0-4); Hematocrit 41.9 % (37.0-47.0); Hemoglobin 14.1 g/dl (12.0-16.0); Imm Gran Abs Auto 0.04 X10*3/uL (0.00-0.03); Imm Gran Pct Auto 0.3 % (0.0-0.4); Lymphocytes Absolute Auto 3.6 X10*3/uL (1.2-4.9); Lymphocytes Percent Auto 28.1 % (20-40); Mean Corpuscular HGB Conc 33.7 g/dl (31.0-35.0); Mean Corpuscular Hemoglobin 30.5 pg (27.0-33.0); Mean Corpuscular Volume 90.7 fL (80.0-98.0); Mean Platelet Volume 10.8 fL (9.4-12.3); Monocytes Absolute Auto 1.1 X10*3/uL (0.1-1.2); Monocytes Percent Auto 8.2 % (2-11); Neutrophils Absolute Auto 7.4 x10*3/uL (2.0-8.3); Platelet Count 321 X10*3/uL (160-400); Red Blood Count 4.62 X10*6/uL (4.20-5.50); Red Cell Distribution Width 12.9 % (11.0-16.0); White Blood Count 12.8 X10*3/uL (4.8-10.8)
[2022-10-04 15:09] VITALS: BP 207/112; PULSE 94; RESP 12; TEMP 36.8; O2SAT 97
[2022-10-04 15:19] LABS: Alanine Aminotransferase 20 U/L (0-31); Albumin Level 4.1 g/dL (3.5-5.0); Alkaline Phosphatase 112 U/L (39-117); Anion Gap 12 (12-20); Aspartate Amino Transferase 15 U/L (5-31); Bilirubin Total 0.3 mg/dL (0.0-1.0); Blood Urea Nitrogen 21 mg/dL (9-16); Calcium 10.3 mg/dL (8.4-10.2); Carbon Dioxide 29 mmol/L (22-29); Chloride 108 mmol/L (96-108); Creatinine Clr Calc Pharmacy 73.2; Estimated Glomerular Filt Rate > 60; Glucose Random 94 mg/dL (60-115); Lipase 29 U/L (8-78); Potassium 4.6 mmol/L (3.3-5.1); Sodium 144 mmol/L (135-145); Total Protein 7.5 g/dL (6.5-8.0)
[2022-10-04 15:19] LABS: COVID-19 Test Negative (Negative); IDNOW Serial# 55D5AD1C; IDNOW Serial# 6674DD1D; Influenza A Negative (Negative); Influenza B2 Negative (Negative)
[2022-10-04 15:40] LABS: TSH reflex Free T4 1.45 uIU/mL (0.32-4.0)
--- NOTE | 2022-10-04 15:56 | MHC.EDTECH ---
EKG completed by this script writer at [id number].
[2022-10-04 16:34] LABS: Troponin-I High Sensitivity < 3.5 ng/L (<3.5-17.0)
== END 2022-10-04 17:44 | disposition home or self-care (01) ==
PROVIDERS: Nurse Practitioner Family; Emergency Provider Emergency Medicine; PCP Internal Medicine
DX: J02.9 Acute pharyngitis, unspecified (principal); R13.10 Dysphagia, unspecified; M54.2 Cervicalgia; Z20.822 Contact with and (suspected) exposure to COVID-19; Z79.899 Other long term (current) drug therapy
CPT/HCPCS: 36415; 70360; 71046; 80053; 83690; 84443; 84484; 85025; 87502; 87635; 93005; 99283; 99284

== ENCOUNTER 2022-10-14 13:04 | Outpatient (REF) | payer OTHER, SELFPAY ==
--- NOTE | ~2022-10-14 | XR_ITS ---
EXAMINATION: XR ABDOMEN KUB CLINICAL INDICATION: Right flank pain. COMPARISON: None TECHNIQUE: AP view of the abdomen. FINDINGS: There is moderate stool seen throughout the colon without significant distention. There is no organomegaly. No radiopaque calculi suspected. Bone windows reveal unremarkable. The SI joints are symmetrical and normal. XR/XR KUB IMPRESSION: Mild constipation, otherwise unremarkable.
== END 2022-10-14 13:05 | disposition home or self-care (01) ==
LOC: HO.XRAY 13:04
PROVIDERS: PCP Internal Medicine; Visit Provider Internal Medicine
DX: R10.9 Unspecified abdominal pain (principal)
CPT/HCPCS: 74018

== ENCOUNTER 2022-11-07 10:04 | Outpatient (REF) | payer OTHER, SELFPAY ==
--- NOTE | ~2022-11-07 | US_ITS ---
EXAMINATION: US THYROID CLINICAL INFORMATION: Nontoxic single thyroid nodule. COMPARISON: Ultrasound thyroid 05/20/2014 TECHNIQUE: Linear transducer grayscale and color Doppler examination with attention to the region of the thyroid. FINDINGS: SIZE: Measurements of the thyroid lobes and nodules are given in sagittal, anteroposterior and transverse dimensions respectively. Right Thyroid Lobe: 3.4 x 1.7 x 1.1 cm, volume 3.4 mL. Previously 3.2 x 1.6 x 1.0 cm, volume 2.7 mL. Parenchyma: The gland echotexture is homogeneous. Thyroid vascularity is normal. Left Thyroid Lobe: 4.0 x 1.7 x 1.8 cm, volume 6.4 mL. Previously 4.1 x 1.4 x 1.7 cm, volume 5.0 mL. Parenchyma: The gland echotexture is homogeneous. Thyroid vascularity is normal. Isthmus: 0.2 cm in maximum AP dimension. Previously 0.3 cm. Estimated total number of nodules greater than or equal to 1 cm: 0. Occupational Therapy Technician nodules are described as follows: 1. Location: Left superior. Size: 0.4 x 0.3 x 0.4 cm, volume 0.03 mL. Previously: Not documented on the previous study. Nodule characteristics: Composition: Solid/almost completely solid (2). Echogenicity: Hypoechoic (2). Shape: Not taller than wide (0). Margins: Smooth (0). Echogenic Foci: None (0). ACR TI-RADS total points: 4 ACR TI-RADS category: 4 2. Location: Left mid. Size: 0.6 x 0.4 x 0.7 cm, volume 0.09 mL. Previously: Not documented on the previous study. Nodule characteristics: Composition: Mixed cystic and solid (1). Echogenicity: Hypoechoic (2). Shape: Not taller than wide (0). Margins: Ill-defined (0). Echogenic Foci: None (0). ACR TI-RADS total points: 3 ACR TI-RADS category: 3 3. Location: Left mid. Size: 0.2 x 0.2 x 0.2 cm, volume 0.004 mL. Previously: Not documented on the previous study. Nodule characteristics: Composition: Mixed cystic and solid (1). Echogenicity: Hypoechoic (2). Shape: Not taller than wide (0). Margins: Smooth (0). Echogenic Foci: None (0). ACR TI-RADS total points: 3 ACR TI-RADS category: 3 4. Location: Left mid. Size: 0.3 x 0.2 x 0.3 cm, volume 0.009 mL. Previously: Not documented on the previous study. Nodule characteristics: Composition: Mixed cystic and solid (1). Echogenicity: Hypoechoic (2). Shape: Not taller than wide (0). Margins: Smooth (0). Echogenic Foci: None (0). ACR TI-RADS total points: 3 ACR TI-RADS category: 3 5. Location: Left inferior. Size: 0.6 x 0.4 x 0.6 cm, volume 0.08 mL. Previously: Not documented on the previous study. Nodule characteristics: Composition: Spongiform (0). Echogenicity: Anechoic (0). Shape: Not taller than wide (0). Margins: Smooth (0). Echogenic Foci: None (0). ACR TI-RADS total points: 0 ACR TI-RADS category: 1 NODES: No lymphadenopathy is seen in the tissue surrounding the thyroid gland. US/US thyroid IMPRESSION: Subcentimeter TR 1, TR 3, TR 4 thyroid nodules as detailed above which do not meet criteria for follow-up. ACR TI-RADS RECOMMENDATION REFERENCE: Ultrasound-guided fine-needle aspiration, followup ultrasound, no further follow up. * TR1 (0 point) and TR2 (2 points): No FNA or follow up. * TR3 (3 points): FNA if more than or equal to 2.5 cm in maximum dimension, followup ultrasound in 1, 3 and 5 years if 1.5 to 2.4 cm in maximum dimension. * TR4 (4-6 points): FNA if more than or equal to 1.5 cm in maximum dimension, followup ultrasound in 1, 2, 3 and 5 years if 1 to 1.4 cm in maximum dimension. * TR5 (more than or equal to 7 points): FNA if more than or equal to 1 cm in maximum dimension, followup ultrasound every year for 5 years if 0.5 to 0.9 cm in maximum dimension. * TR3, TR4 or TR5 nodules that are below the size threshold for followup receive no follow up.
== END 2022-11-07 10:05 | disposition home or self-care (01) ==
LOC: HO.US 10:04
PROVIDERS: Visit Provider Internal Medicine
DX: E04.1 Nontoxic single thyroid nodule (principal)
CPT/HCPCS: 76536

== ENCOUNTER 2023-05-28 09:32 | Outpatient (AMB) | payer OTHER, SELFPAY ==
[2023-05-28 09:36] VITALS: BP 170/90; BMI 27.1
--- NOTE | 2023-05-28 09:36 | A.OFFPC_ITS ---
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 Required: No Accompanied by: Self / Same As Patient Allergies Sulfa (Sulfonamide Antibiotics) [SULFA (SULFONAMIDE ANTIBIOTICS)] Allergy (Intermediate, Verified 05/28/23 10:00) RASH cats Allergy (Intermediate, Uncoded 05/28/23 10:00) rash dust Allergy (Intermediate, Uncoded 05/28/23 10:00) rash, itch pollon Allergy (Intermediate, Uncoded 05/28/23 10:00) rash, itch Medication List - Last Reconciled 05/28/23 by Jennie James MD amlodipine 5 mg PO DAILY 90 days blood pressure monitor (Blood Pressure Kit) As directed calcium carbonate (Oyster Shell Calcium) 500 mg PO BID 90 days cholecalciferol (vitamin D3) 50 mcg PO DAILY 90 days fluticasone propionate 50 mcg/actuation 1 spray intranasal DAILY humidifiers As directed ibuprofen 800 mg PO Q8H PRN 30 days loratadine 10 mg PO DAILY PRN 90 days omeprazole 20 mg PO DAILY 90 days Tobacco use date assessed: 10/14/22 Fall risk assessment: No Falls in past year Last assessed Fall Risk: 05/28/23 Dental Screening Dental Screen Date: 05/28/23 Did you have a dental visit in the last 12 months?: Yes Did you have a dental problem in the last 6 months where you did not have access to dental care?: No Was dental information given to patient?: Patient has dentist HPI HPI Comments History of Present Illness Details This is a 67-year-old female with hypertension, chronic GERD, venous insufficiency and low vitamin-D that comes today for follow-up on her conditions. She is not compliant with amlodipine due to fear of side effects and I advised her to start using amlodipine because blood pressure can cause heart attack, stroke and . She is aware of the consequences. GERD still present with omeprazole. On vitamin-D supplements for low vitamin-D. Has venous insufficiency and would like compression stockings to relieved the discomfort. [facility] Medical History (Updated 05/28/23 @ 10:11 by Jennie James MD) Allergic rhinitis Chronic fatigue Daily headache Elevated blood pressure reading without diagnosis of hypertension GERD (gastroesophageal reflux disease) Hypovitaminosis D Muscle spasm Overweight (BMI 25.0-29.9) Skin lesion Surgical History No pertinent past surgical history Family History Mother No problems noted. Father Diabetes Other Mental health disorder Social History Housing: Apartment Alcohol intake: never Patient Tobacco Use Status: Former Tobacco user Tobacco use type: Cigarette e-Cigarette/Vaping Use: Never Used Second Hand Smoke Exposure: No service: No Current occupational status: disabled Cognitive needs: No Hearing needs: No Vision needs: Yes Questionnaire Thrive Questionnaire Date Thrive assessed: 10/14/22 CHEN-7 AMB Questionnaire CHEN-7 Date CHEN - 7 assessed: 10/14/22 Source: Developed by Drs. Jesse Wilkins, Sulema Wilson, Lionel Hale and colleagues, with an educational jonathan from [employer]. Review of Systems Const All systems reviewed & are unremarkable except as noted in HPI and below Eyes Reports no additional complaints, Denies change in vision and Denies other visual disturbances Card Denies chest pain at rest, Denies chest pain with activity, Denies edema, Denies irregular heart rhythm, Denies claudication, Denies dyspnea, Denies dyspnea on exertion, Denies orthopnea, Denies paroxysmal nocturnal dyspnea and Denies slow heart rate Resp Denies cough, Denies dyspnea and Denies dyspnea on exertion GI Denies abdominal pain, Denies change in bowel habits, Denies excessive flatus, Denies nausea and Denies vomiting Denies urinary incontinence, Denies urinary hesitancy and Denies urinary urgency Musc Denies abnormal gait, Denies atrophy, Denies deformity and Denies limited range of motion Skin/Breast Denies bleeding lesions, Denies changing lesions and Denies rash Neuro Denies abnormal gait and Denies lack of coordination Physical exam (Primary Care) Vital Signs: Last Vital Signs BP 170/90 H 05/28/23 09:36 BMI result Body Mass Index 27.1 Tobacco/Smoking Status: Tobacco use Status Tobacco use date assessed 10/14/22 05/28/23 09:45 Patient Tobacco Use Status Former Tobacco user 05/28/23 09:45 Tobacco use type Cigarette 05/28/23 09:45 e-Cigarette/Vaping Use Never Used 05/28/23 09:45 Thrive Assessment: Date of Thrive Assessment Date Thrive assessed 10/14/22 05/28/23 09:45 Eyes General: appearance normal, both eyes and all related structures Eyelids: Yes eyelids normal Conjunctivae: conjunctivae normal Neck Neck: Yes normal visual inspection and Yes supple Resp Effort & Inspection: normal respiratory effort Auscultation: clear to auscultation bilaterally Cardio Jugular venous distension: no JVD Rate: regular rate Rhythm: regular rhythm Heart sounds: S1 normal heart sound present and S2 normal heart sound present Extrem General: Yes full ROM Assessment and Plan Assessment & Plan (1) Essential hypertension: Code(s): I10 - Essential (primary) hypertension Plan: Be compliant with amlodipine. Recheck blood pressure in 3 weeks with nurse navigator. Blood pressure goal is equal or less than 130/80. (2) Chronic GERD: Code(s): K21.9 - Gastro-esophageal reflux disease without esophagitis Plan: Continue PPIs as needed. (3) Venous (peripheral) insufficiency: Code(s): I87.2 - Venous insufficiency (chronic) (peripheral) Plan: Start compression stockings. (4) Hypovitaminosis D: Code(s): E55.9 - Vitamin D deficiency, unspecified Plan: Continue vitamin-D supplement Orders: Orders [place] upper GI series Today K21.9 - Gastro-esophageal reflux disease without esop hagitis Medications: New comp.stocking,thigh,long,large Use 1 pair as needed once a day 20 mmHg 2 ea 1RF I87.2 - Venous insufficiency (chronic) (peripheral) Coding Level of Care Code Est Pt Level 4 (33905) Diagnoses Essential hypertension I10 Chronic GERD K21.9 Venous (peripheral) insufficiency I87.2 Hypovitaminosis D E55.9 Time Spent (min) 23
[2023-05-28 10:12] VITALS: BP 180/90
== END 2023-05-28 10:12 | disposition home or self-care (01) ==
PROVIDERS: PCP Internal Medicine; Visit Provider Internal Medicine
DX: I10 Essential (primary) hypertension (principal); K21.9 Gastro-esophageal reflux disease without esophagitis; I87.2 Venous insufficiency (chronic) (peripheral); E55.9 Vitamin D deficiency, unspecified
CPT/HCPCS: 99214

== ENCOUNTER 2023-10-10 14:21 | Outpatient (REF) | payer OTHER, SELFPAY ==
[2023-10-12 20:54] LABS: TS Negative Control Passed; TS Panel A 0; TS Panel B 0; TS Positive Control Passed; TSpotTB Negative (Negative)
== END 2023-10-10 14:22 | disposition home or self-care (01) ==
LOC: HO.LAB 14:21
PROVIDERS: PCP Internal Medicine; Visit Provider Internal Medicine
DX: Z11.1 Encounter for screening for respiratory tuberculosis (principal)
CPT/HCPCS: 36415; 86481

== ENCOUNTER 2024-01-20 09:02 | Outpatient (REF) | payer OTHER, SELFPAY ==
--- NOTE | ~2024-01-20 | XR_ITS ---
EXAMINATION: XR FEMUR, RIGHT CLINICAL INFORMATION: Pain in right side, no new injury, fall 2020, increased pain in past 5 months. COMPARISON: 07/10/2018 TECHNIQUE: 4 views of the right hip. FINDINGS: Moderate narrowing along the superolateral aspect of the hip joint with lateral acetabular hypertrophic change. Alignment is preserved. Mild degenerative changes on limited views of the knee. XR/XR femur RT 2V IMPRESSION: Progression of moderate degenerative changes in the right hip. MRI recommended for further evaluation if there is clinical concern for fracture or other underlying pathology.
[2024-01-20 10:17] LABS: Appearance Urine Clear; Color Urine Yellow; Glucose Urine UA Negative (Negative); Leukocyte Esterase Urine Negative (Negative); Nitrite Urine Negative (Negative); Urine Blood Negative (Negative); Urine Ketones Trace mg/dL (Negative); Urine Protein Negative (Neg-Trace)
== END 2024-01-20 09:03 | disposition home or self-care (01) ==
LOC: HO.XRAY 09:02
PROVIDERS: PCP Internal Medicine; Visit Provider Physician Assistant
DX: M79.651 Pain in right thigh (principal); R35.0 Frequency of micturition
CPT/HCPCS: 73552; 81003

== ENCOUNTER 2024-01-21 13:57 | Outpatient (AMB) | payer OTHER, SELFPAY ==
--- NOTE | 2024-01-21 13:59 | MHC.PC.OV ---
Vital Signs 01/21/24 14:01 Height 5 ft 4 in Weight 152 lb BMI 26.1 BP 162/90 H Blood Pressure Location Lt brachial Position Sitting Intake Visit Reasons: UTI symptoms, abdomen pain Intake Note: Patient here for uti symptoms, frequent urination Debt Collector Required: No Accompanied by: Self / Same As Patient Allergies Sulfa (Sulfonamide Antibiotics) [SULFA (SULFONAMIDE ANTIBIOTICS)] Allergy (Intermediate, Verified 01/21/24 14:13) RASH chlorthalidone Adverse Reaction (Intermediate, Verified 01/21/24 14:19) muscle cramps cats Allergy (Intermediate, Uncoded 01/21/24 14:13) rash dust Allergy (Intermediate, Uncoded 01/21/24 14:13) rash, itch pollon Allergy (Intermediate, Uncoded 01/21/24 14:13) rash, itch Medication List - Last Reconciled 01/21/24 by Jennie James MD blood pressure monitor (Blood Pressure Kit) As directed calcium carbonate (Oyster Shell Calcium) 500 mg PO BID 90 days chlorthalidone 25 mg PO DAILY 90 days cholecalciferol (vitamin D3) 50 mcg PO DAILY 90 days comp.stocking,thigh,long,large Use 1 pair as needed once a day 20 mmHg [exercise bike As directed] famotidine 20 mg PO BEDTIME 30 days fluticasone propionate 50 mcg/actuation 1 spray intranasal DAILY humidifiers As directed ibuprofen 800 mg PO Q8H PRN 30 days loratadine 10 mg PO DAILY PRN 90 days omeprazole 20 mg PO DAILY 90 days [orthopedic shoes As directed] Tobacco use date assessed: 01/21/24 Fall risk assessment: No Falls in past year Last assessed Fall Risk: 01/21/24 Dental Screening Dental Screen Date: 01/21/24 Did you have a dental visit in the last 12 months?: Yes Did you have a dental problem in the last 6 months where you did not have access to dental care?: No Was dental information given to patient?: Patient has dentist HPI HPI Comments History of Present Illness Details This is a 68-year-old female with essential hypertension, chronic GERD and allergic rhinitis that complains of polyarthralgia that has been present for years. She will be referred to rheumatology. Blood pressure elevated and I will start her on lisinopril low-dose. Blood pressure will be recheck in 3 weeks by nurse. Blood pressure goal is equal or less than 130/80. GERD stable with medications. On antihistamines for her allergic rhinitis. Denies any chest pain or shortness of breath. She does complains of daytime somnolence and can severely dozed off while watching TV, writing as a passenger in a car, lying down to rest in the afternoon and sitting quietly after lunch which gives an [place] score Scale of 12 and I will order a sleep study. [facility] Medical History (Updated 01/22/24 @ 07:46 by Jennie James MD) Daily headache Skin lesion Overweight (BMI 25.0-29.9) Allergic rhinitis Chronic fatigue Muscle spasm GERD (gastroesophageal reflux disease) Hypovitaminosis D Surgical History No pertinent past surgical history Family History Mother No problems noted. Father Diabetes Other Mental health disorder Social History Housing: Apartment Alcohol intake: never Patient Tobacco Use Status: Former Tobacco user Tobacco use type: Cigarette e-Cigarette/Vaping Use: Never Used Second Hand Smoke Exposure: No service: No Current occupational status: disabled Cognitive needs: No Hearing needs: No Vision needs: Yes Questionnaire PHQ-9 Over the last 2 weeks, how often have you been bothered by any of the following problems? 1. Little interest or pleasure in doing things: not at all 2. Feeling down, depressed, or hopeless: not at all 3. Trouble falling or staying asleep, or sleeping too much: several days 4. Feeling tired or having little energy: not at all 5. Poor appetite or overeating: not at all 6. Feeling bad about yourself - or that you are a failure or have let yourself or your family down: not at all 7. Trouble concentrating on things, such as reading the newspaper or watching television: not at all 8. Moving or speaking so slowly that other people could have noticed. Or the opposite - being so fidgety or restless that you have been moving around a lot more than usual: not at all 9. Thoughts that you would be better off or of hurting yourself in some way: not at all Total score: 1 Depression Screening Interpretation: Negative Depression Screening Done: Yes 12517 - PHQ-9 Billing: Yes Source: Developed by Drs. Jesse Wilkins, Sulema Wilson, Lionel Hale and colleagues, with an educational jonathan from [employer]. Thrive Questionnaire Date Thrive assessed: 01/21/24 I am a: Patient What is your living situation today?: I have a steady place to live Within the past 12 months, did the food you bought not last and you didn't have the money to get more?: Never true Within the past 12 months, did you worry whether your food would run out before you got money to buy more?: Never true Do you have trouble paying for medicines?: No Do you have trouble getting transportation to medical appointments?: No Do you have trouble paying your heating and electricity bill?: No Do you have trouble taking care of your child, family member or friend?: No Do you have trouble with day-to-day activities such as bathing, preparing meals, shopping, managing finances, etc.?: No Are you currently unemployed and looking for a job?: No Are you interested in more education?: No Please select the resources that you would like help with: None Currently or been in a relationship where the following occur: no concerns reported THRIVE Score: 0 AUDIT C Alcohol Use Questionnaire (AUDIT-C) 1. How often do you have a drink containing alcohol?: Never Total Score: 0 Score Reviewed/Action Taken: No CHEN-7 AMB Questionnaire CHEN-7 Date CHEN - 7 assessed: 01/21/24 Feeling nervous, anxious, or on edge: 1 = Several days Not being able to stop or control worryin = Not at all Worrying too much about different things: 0 = Not at all Trouble relaxin = Not at all Being so restless that it is hard to sit still: 0 = Not at all Becoming easily annoyed or irritable: 0 = Not at all Feeling afraid as if something awful might happen: 0 = Not at all Total CHEN-7 score (0-4 normal; 5-9 mild; 10-14 moderate; 15-21 severe): 1 Source: Developed by Sulema Schumacher Kurt Kroenke and colleagues, with an educational jonathan from [employer]. CHEN-7 Assessment Billing CHEN-7 Assessment Tool: CHEN-7 Assessment 43478 Review of Systems Const All systems reviewed & are unremarkable except as noted in HPI and below Card Denies chest pain at rest, Denies chest pain with activity, Reports rapid heart rate, Denies edema, Denies irregular heart rhythm, Denies claudication, Denies dyspnea, Denies dyspnea on exertion, Denies orthopnea, Denies paroxysmal nocturnal dyspnea and Denies slow heart rate Resp Denies cough, Denies dyspnea and Denies dyspnea on exertion Reports urinary incontinence Musc Reports arthralgias Physical exam (Primary Care) Vital Signs: Last Vital Signs BP 162/90 H 01/21/24 14:01 BMI result Body Mass Index 26.1 Tobacco/Smoking Status: Tobacco use Status Tobacco use date assessed 01/21/24 01/21/24 14:08 Patient Tobacco Use Status Former Tobacco user 01/21/24 14:00 Tobacco use type Cigarette 01/21/24 14:00 e-Cigarette/Vaping Use Never Used 01/21/24 14:00 PHQ-9: PHQ-9 Score PHQ-9: Total score 1 01/21/24 14:16 Depression Screening Interpretation: Negative Thrive Assessment: Date of Thrive Assessment Date Thrive assessed 01/21/24 01/21/24 14:08 Currently or been in a relationship where the following occur: no concerns reported Resp Effort & Inspection: normal respiratory effort Auscultation: clear to auscultation bilaterally Cardio Jugular venous distension: no JVD Rate: regular rate Rhythm: regular rhythm Heart sounds: S1 normal heart sound present and S2 normal heart sound present Extrem General: Yes full ROM Assessment and Plan Assessment & Plan (1) Essential hypertension: Code(s): I10 - Essential (primary) hypertension Plan: Start lisinopril. Recheck blood pressure with nurse navigator. Blood pressure goal is equal or less than 130/80. (2) Polyarthralgia: Code(s): M25.50 - Pain in unspecified joint Plan: Referred to rheumatology. (3) Chronic GERD: Code(s): K21.9 - Gastro-esophageal reflux disease without esophagitis Plan: Continue PPIs. (4) Allergic rhinitis: Code(s): J30.9 - Allergic rhinitis, unspecified Qualifiers: Allergic rhinitis trigger: pollen Allergic rhinitis seasonality: seasonal Qualified Code(s): J30.1 - Allergic rhinitis due to pollen Plan: Continue antihistamines as needed. Orders: Orders RT home sleep study 01/21/24 R40.0 - Somnolence Vitamin K1 01/21/24 M25.50 - Pain in unspecified joint Erythrocyte Sedimentation Rate 01/21/24 M25.50 - Pain in unspecified joint Cyclic Citrullinated Peptide 01/21/24 M25.50 - Pain in unspecified joint Rheumatoid Factor 01/21/24 M25.50 - Pain in unspecified joint Anti DNA DS Antibody 01/21/24 M25.50 - Pain in unspecified joint Complete Blood Count Auto Diff 01/21/24 R00.2 - Palpitations Comprehensive [place]. Panel Fast 01/21/24 M25.50 - Pain in unspecified joint ECG 12 lead EKG 01/21/24 R00.2 - Palpitations [place] upper GI series 01/21/24 K21.9 - Gastro-esophageal reflux disease without esophagitis Vitamin D 25-OH Total 01/21/24 E55.9 - Vitamin D deficiency, unspecified, M25.50 - Pain in unspecified joint CRP High Sensitivity 01/21/24 M25.50 - Pain in unspecified joint JENNIE Reflex Titer and Pattern 01/21/24 M25.50 - Pain in unspecified joint Thyroid Stimulating Hormone 01/21/24 R00.2 - Palpitations Referrals Rheumatology Referral M25.50 - Pain in unspecified joint Dermatology Referral L98.9 - Disorder of the skin and subcutaneous tissue, unspecified Medications: New lisinopril 5 mg PO DAILY 90 days 90 tabs 0RF I10 - Essential (primary) hypertension oxybutynin chloride ER 5 mg PO DAILY 90 tabs 0RF 90 days lisinopril 5 mg PO DAILY 90 tabs 0RF 90 days I10 - Essential (primary) hypertension Refilled fluticasone propionate 50 mcg/actuation 1 spray intranasal DAILY 16 mL 1RF calcium carbonate (Oyster Shell Calcium) 500 mg PO BID 180 tabs 1RF 90 days M85.80 - Other specified disorders of bone density and structure, unspecified site cholecalciferol (vitamin D3) 50 mcg PO DAILY 90 tabs 1RF 90 days ibuprofen 800 mg PO Q8H PRN 90 tabs 1RF pain 30 days loratadine 10 mg PO DAILY PRN 90 tabs 3RF allergy symptoms 90 days R53.82 - Chronic fatigue, unspecified omeprazole 20 mg PO DAILY 90 caps 1RF 90 days Discontinued famotidine Discontinued Reason: Patient Completed Course 20 mg PO BEDTIME 30 days 30 tabs 0RF chlorthalidone Discontinued Reason: Patient Refused 25 mg PO DAILY 90 days 90 tabs 1RF I10 - Essential (primary) hypertension Coding Level of Care Code Est Pt Level 4 (85797) Diagnoses Essential hypertension I10 Polyarthralgia M25.50 Chronic GERD K21.9 Seasonal allergic rhinitis due to pollen J30.1 Allergic rhinitis trigger: pollen Allergic rhinitis seasonality: seasonal Additional Codes CHEN-7 Assessment Billing - CHEN-7 Assessment Tool: CHEN-7 Assessment 63821 ([id number]) Time Spent (min) 24
[2024-01-21 14:01] VITALS: BP 162/90; BMI 26.1
== END 2024-01-21 14:33 | disposition home or self-care (01) ==
PROVIDERS: PCP Internal Medicine; Visit Provider Internal Medicine
DX: I10 Essential (primary) hypertension (principal); M25.50 Pain in unspecified joint; K21.9 Gastro-esophageal reflux disease without esophagitis; J30.1 Allergic rhinitis due to pollen
CPT/HCPCS: 99214

== ENCOUNTER 2024-01-22 11:50 | Outpatient (REF) | payer OTHER, SELFPAY | END 2024-01-22 11:51 | disposition home or self-care (01) | LOC: HO.MAMMO 11:50 | PROVIDERS: PCP Internal Medicine; Visit Provider Internal Medicine | DX: Z12.31 Encounter for screening mammogram for malignant neoplasm of breast (principal) | CPT/HCPCS: 77063; 77067 ==

== ENCOUNTER → 2024-01-22 12:15 | Outpatient (BNV) | payer OTHER, SELFPAY | PROVIDERS: PCP Internal Medicine; Visit Provider Radiology Diagnostic Radiology | DX: Z12.31 Encounter for screening mammogram for malignant neoplasm of breast (principal) | CPT/HCPCS: 77063; 77067 ==

== ENCOUNTER 2024-02-18 09:01 | Outpatient (REF) | payer OTHER, SELFPAY ==
[2024-02-18 09:23] LABS: MANUAL DIFF FLAG NO
[2024-02-18 09:42] LABS: Basophils Absolute Auto 0.1 X10*3/uL (0.0-0.2); Basophils Percent Auto 1.1 % (0-2); Eosinophils Absolute Auto 0.4 X10*3/uL (0.0-0.4); Eosinophils Percent Auto 5.1 % (0-4); Hematocrit 43.4 % (37.0-47.0); Hemoglobin 14.4 g/dl (12.0-16.0); Imm Gran Abs Auto 0.03 X10*3/uL (0.00-0.03); Imm Gran Pct Auto 0.4 % (0.0-0.4); Lymphocytes Absolute Auto 2.6 X10*3/uL (1.2-4.9); Lymphocytes Percent Auto 30.5 % (20-40); Mean Corpuscular HGB Conc 33.2 g/dl (31.0-35.0); Mean Corpuscular Hemoglobin 30.5 pg (27.0-33.0); Mean Corpuscular Volume 91.9 fL (80.0-98.0); Mean Platelet Volume 11.1 fL (9.4-12.3); Monocytes Absolute Auto 0.7 X10*3/uL (0.1-1.2); Neutrophils Absolute Auto 4.6 x10*3/uL (2.0-8.3); Neutrophils Percent Auto 54.9 % (45-73); Platelet Count 352 X10*3/uL (160-400); Red Blood Count 4.72 X10*6/uL (4.20-5.50); Red Cell Distribution Width 12.5 % (11.0-16.0); White Blood Count 8.4 X10*3/uL (4.8-10.8)
[2024-02-18 10:25] LABS: Alanine Aminotransferase 15 U/L (0-31); Alkaline Phosphatase 93 U/L (39-117); Anion Gap 11 (12-20); Aspartate Amino Transferase 13 U/L (5-31); Bilirubin Total 0.6 mg/dL (0.0-1.0); Blood Urea Nitrogen 14 mg/dL (9-16); Calcium 9.6 mg/dL (8.4-10.2); Carbon Dioxide 25 mmol/L (22-29); Chloride 110 mmol/L (96-108); Estimated Glomerular Filt Rate > 60; Glucose Fasting 95 mg/dL (60-99); Potassium 4.3 mmol/L (3.3-5.1); Sodium 142 mmol/L (135-145); Total Protein 7.5 g/dL (6.5-8.0)
[2024-02-18 10:29] LABS: Erythrocyte Sedimentation Rate 6 MM/HR (0-20)
[2024-02-18 10:35] LABS: Thyroid Stimulating Hormone 1.06 uIU/mL (0.32-4.0); Vitamin D 25-OH Total 33.2 ng/mL (>30)
[2024-02-18 10:38] LABS: HBS Num1 > 1000.00 mIU/mL (0-7.99); HBc Num1 0.09 S/CO (0.00-0.79); HBsAGNum1 0.23 S/CO (0.00-0.99); Hepatitis B Core Antibody Nonreactive (Nonreactive); Hepatitis B Surface Antigen Negative (Negative); ~Hepatitis B Surface Antibody REACTIVE (Nonreactive)
[2024-02-18 10:49] LABS: Rheumatoid Factor < 13.0 IU/mL (<15.0)
[2024-02-19 14:54] LABS: CRP High Sensitivity 5.2 mg/L
[2024-02-19 20:44] LABS: Anti DNA DS Antibody <1 IU/mL
[2024-02-20 15:43] LABS: Cyclic Citrullinated Peptide <16 UNITS
[2024-02-20 16:17] LABS: Anti Nuclear Antibody Screen NEGATIVE (NEGATIVE)
[2024-02-23 01:18] LABS: Vitamin K1 415 pg/mL (130-1500)
== END 2024-02-18 09:02 | disposition home or self-care (01) ==
LOC: HO.LAB 09:01
PROVIDERS: PCP Internal Medicine; Visit Provider Internal Medicine
DX: M25.50 Pain in unspecified joint (principal); Z23 Encounter for immunization; E55.9 Vitamin D deficiency, unspecified; R00.2 Palpitations
CPT/HCPCS: 36415; 80053; 82306; 84443; 84597; 85025; 85652; 86038; 86141; 86200; 86225; 86431; 86704; 86706; 87340

== ENCOUNTER 2024-02-25 10:20 | Outpatient (AMB) | payer OTHER, SELFPAY ==
[2024-02-25 10:31] VITALS: BP 162/90; BMI 25.9
--- NOTE | 2024-02-25 10:31 | MHC.PC.OV ---
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 Required: No Accompanied by: Self / Same As Patient Allergies Sulfa (Sulfonamide Antibiotics) [SULFA (SULFONAMIDE ANTIBIOTICS)] Allergy (Intermediate, Verified 02/25/24 10:43) RASH chlorthalidone Adverse Reaction (Intermediate, Verified 02/25/24 10:43) muscle cramps cats Allergy (Intermediate, Uncoded 02/25/24 10:43) rash dust Allergy (Intermediate, Uncoded 02/25/24 10:43) rash, itch pollon Allergy (Intermediate, Uncoded 02/25/24 10:43) rash, itch Medication List - Last Reconciled 02/25/24 by Jennie James MD blood pressure monitor (Blood Pressure Kit) As directed calcium carbonate (Oyster Shell Calcium) 500 mg PO BID 90 days cholecalciferol (vitamin D3) 50 mcg PO DAILY 90 days comp.stocking,thigh,long,large Use 1 pair as needed once a day 20 mmHg [exercise bike As directed] fluticasone propionate 50 mcg/actuation 1 spray intranasal DAILY humidifiers As directed ibuprofen 800 mg PO Q8H PRN 30 days lisinopril 5 mg PO DAILY 90 days loratadine 10 mg PO DAILY PRN 90 days omeprazole 20 mg PO DAILY 90 days [orthopedic shoes As directed] oxybutynin chloride ER 5 mg PO DAILY 90 days Tobacco use date assessed: 01/21/24 Fall risk assessment: No Falls in past year Last assessed Fall Risk: 02/25/24 Dental Screening Dental Screen Date: 01/21/24 HPI HPI Comments History of Present Illness Details This is a 68-year-old female that comes for her physical exam. Mammogram done 2023 was normal. She declines colonoscopy and would like a Cologuard. No need for Pap smear due to age. Denies any chest pain or shortness on breath. Blood pressure elevated and I will increase lisinopril. Blood pressure will be recheck in 3 weeks by nurse navigator. Labs were discussed and has elevated CRP and complains of diffuse joint pain. Has rheumatology appointment on 04/17/2024. [facility] Medical History (Updated 02/25/24 @ 11:49 by Jennie James MD) Daily headache Skin lesion Overweight (BMI 25.0-29.9) Allergic rhinitis Chronic fatigue Muscle spasm GERD (gastroesophageal reflux disease) Hypovitaminosis D Surgical History No pertinent past surgical history Family History Mother No problems noted. Father Diabetes Other Mental health disorder Social History Housing: Apartment Alcohol intake: never Patient Tobacco Use Status: Former Tobacco user Tobacco use type: Cigarette e-Cigarette/Vaping Use: Never Used Second Hand Smoke Exposure: No service: No Current occupational status: disabled Cognitive needs: No Hearing needs: No Vision needs: Yes Questionnaire Thrive Questionnaire Date Thrive assessed: 01/21/24 CHEN-7 AMB Questionnaire CHEN-7 Date CHEN - 7 assessed: 01/21/24 Source: Developed by Drs. Jesse Wilkins, Sulema Wilson, Lionel Hale and colleagues, with an educational jonathan from [employer]. Review of Systems Const All systems reviewed & are unremarkable except as noted in HPI and below Card Denies chest pain at rest, Denies chest pain with activity, Denies edema, Denies irregular heart rhythm, Denies claudication, Denies dyspnea, Denies dyspnea on exertion, Denies orthopnea, Denies paroxysmal nocturnal dyspnea and Denies slow heart rate Resp Denies cough, Denies dyspnea and Denies dyspnea on exertion Neuro Denies behavioral changes, Denies confusion and Denies lack of coordination Psych Denies behavioral changes and Denies confusion Physical exam (Primary Care) Vital Signs: Last Vital Signs BP 162/90 H 02/25/24 10:31 BMI result Body Mass Index 25.9 Tobacco/Smoking Status: Tobacco use Status Tobacco use date assessed 01/21/24 02/25/24 10:36 Patient Tobacco Use Status Former Tobacco user 02/25/24 10:36 Tobacco use type Cigarette 02/25/24 10:36 e-Cigarette/Vaping Use Never Used 02/25/24 10:36 Thrive Assessment: Date of Thrive Assessment Date Thrive assessed 04/24/24 05/29/24 10:36 Const General: No confusion Orientation/consciousness: patient oriented x3 and No confusion HENMT Head: Yes normal to inspection, Yes normocephalic and Yes atraumatic Ears: external ears normal Eyes General: appearance normal, both eyes and all related structures Eyelids: Yes eyelids normal Conjunctivae: conjunctivae normal Neck Neck: Yes normal visual inspection and Yes supple Resp Effort & Inspection: normal respiratory effort Auscultation: clear to auscultation bilaterally Cardio Jugular venous distension: no JVD Rate: regular rate Rhythm: regular rhythm Heart sounds: S1 normal heart sound present and S2 normal heart sound present GI Inspection: Yes normal to inspection Palpation (GI): Soft to palpation and nontender Auscultation: normal bowel sounds Skin General skin exam: no rashes or lesions noted Neuro General: patient oriented x3, no focal motor deficits and No confusion Extrem General: Yes full ROM Psych Appearance: grossly normal Assessment and Plan Assessment & Plan (1) Physical exam: Code(s): Z00.00 - Encounter for general adult medical examination without abnormal findings Plan: Repeat in a year. Orders: Orders FL barium swallow Today R13.10 - Dysphagia, unspecified XR DEXA axial skeleton 7 Months N95.9 - Unspecified menopausal and perimenopausal disorder T Spot TB Today Z11.1 - Encounter for screening for respiratory tuberculosis Referrals Cologuard Test Z12.11 - Encounter for screening for malignant neoplasm of colon, Z12.12 - Encounter for screening for malignant neoplasm of rectum Review Patient declined Colonoscopy: 02/25/24 Coding Level of Care Code Est Pt Prev Care >65y(11842) Diagnoses Physical exam Z00.00 Time Spent (min) 30
== END 2024-02-25 10:53 | disposition home or self-care (01) ==
PROVIDERS: PCP Internal Medicine; Visit Provider Internal Medicine
DX: Z00.00 Encounter for general adult medical examination without abnormal findings (principal)
CPT/HCPCS: 99397

== ENCOUNTER 2024-02-26 10:18 | Outpatient (REF) | payer OTHER, SELFPAY ==
--- NOTE | ~2024-02-26 | XR_ITS ---
EXAMINATION: XR PELVIS CLINICAL INFORMATION: Hip pain COMPARISON: Hip radiographs 01/20/2024 TECHNIQUE: AP view of the pelvis. FINDINGS: No acute fracture or dislocation. Moderate osteophytosis of the right hip with loss of superolateral joint space and acetabular osteophytes unchanged. Right hip joint space and sacroiliac joint spaces are maintained. Soft tissues are unremarkable. XR/XR pelvis 1-2V IMPRESSION: Moderate degenerative changes of the right hip unchanged from prior.
== END 2024-02-26 10:19 | disposition home or self-care (01) ==
LOC: HO.HOSX 10:18
PROVIDERS: Visit Provider Orthopaedic Surgery
DX: M16.11 Unilateral primary osteoarthritis, right hip (principal)
CPT/HCPCS: 72170; 99202

== ENCOUNTER 2024-02-26 10:58 | Outpatient (AMB) | payer OTHER, SELFPAY ==
--- NOTE | 2024-02-26 10:59 | MHC.OFFVIS ---
Vital Signs 02/26/24 11:00 Height 5 ft 4 in Weight 151 lb BMI 25.9 Intake Visit Reasons: Unilateral primary osteoarthritis, right hip Intake Note: Mariajose is a 68 year old female who presents today as a new patient with complaints of pain due to right hip OA. She was referred by her PCP. Patient reports that she took a fall a few years back and landed on her back and right leg. She was taking ibuprofen after the injury but when her symptms improved but she has pain when sitting for a prolonged period of time but her pain improves with activity. Pain worsened with cold temperatiures and first thing in the morining. She was told she has OA but her symptoms are minimal Allergies Sulfa (Sulfonamide Antibiotics) [SULFA (SULFONAMIDE ANTIBIOTICS)] Allergy (Intermediate, Verified 02/25/24 10:43) RASH chlorthalidone Adverse Reaction (Intermediate, Verified 02/25/24 10:43) muscle cramps cats Allergy (Intermediate, Uncoded 02/25/24 10:43) rash dust Allergy (Intermediate, Uncoded 02/25/24 10:43) rash, itch pollon Allergy (Intermediate, Uncoded 02/25/24 10:43) rash, itch PFSH Medical History (Updated 02/25/24 @ 11:49 by Jennie James MD) Daily headache Skin lesion Overweight (BMI 25.0-29.9) Allergic rhinitis Chronic fatigue Muscle spasm GERD (gastroesophageal reflux disease) Hypovitaminosis D Surgical History No pertinent past surgical history Family History Mother No problems noted. Father Diabetes Other Mental health disorder Social History Housing: Apartment Alcohol intake: never Patient Tobacco Use Status: Former Tobacco user Tobacco use type: Cigarette e-Cigarette/Vaping Use: Never Used Second Hand Smoke Exposure: No service: No Current occupational status: disabled Cognitive needs: No Hearing needs: No Vision needs: Yes Physical Exam Vital Signs: BMI result Body Mass Index 25.9 Extrem Other: No pain with hip ROM nl gait Results Reviewed Results Reviewed: I personally reviewed relevant radiographs. Mild hip OA bilaterally Assessment & Plan Assessment & Plan (1) Osteoarthritis of right hip: Code(s): M16.11 - Unilateral primary osteoarthritis, right hip Category: Medical Plan: Minimally symptomatic. No intervention warranted. Orders: Orders XR pelvis 1-2V 02/26/24 M25.559 - Pain in unspecified hip Coding Level of Care Code New Pt Level 3 (53916) Diagnoses Osteoarthritis of right hip M16.11
[2024-02-26 11:00] VITALS: BMI 25.9
== END 2024-02-26 11:31 | disposition home or self-care (01) ==
LOC: HO.HOS 10:58
PROVIDERS: PCP Internal Medicine; Visit Provider Orthopaedic Surgery
DX: M16.11 Unilateral primary osteoarthritis, right hip (principal)
CPT/HCPCS: 99203

== ENCOUNTER → 2024-02-26 13:15 | Outpatient (REF) | payer OTHER, SELFPAY | LOC: HO.SL 13:15 | PROVIDERS: PCP Internal Medicine; Visit Provider Internal Medicine | DX: G47.33 Obstructive sleep apnea (adult) (pediatric) (principal); R40.0 Somnolence | CPT/HCPCS: 95806 ==

== ENCOUNTER → 2024-02-26 14:13 | Outpatient (BNV) | payer OTHER, SELFPAY | PROVIDERS: PCP Internal Medicine; Visit Provider Internal Medicine | DX: G47.33 Obstructive sleep apnea (adult) (pediatric) (principal) | CPT/HCPCS: 95806 ==

== ENCOUNTER 2024-03-17 08:42 | Outpatient (REF) | payer OTHER, SELFPAY ==
--- NOTE | ~2024-03-17 | FL_ITS ---
EXAMINATION: XR FLUOROSCOPY UPPER GI WITH AIR CLINICAL INFORMATION: Dysphagia. Globus sensation. Reflux COMPARISON: Upper GI April 2019 TECHNIQUE: Fluoroscopic air contrast upper GI examination was performed utilizing standard techniques with thin and thick barium and effervescent granules. Numerous spot images were obtained. FINDINGS: Lateral cine images of the oropharynx and hypopharynx demonstrate normal swallow mechanism with normal epiglottic inversion and soft palate elevation. Mild pooling of contrast in the piriform sinuses and vallecula, consistently. No tracheal penetration, glottic or subglottic aspiration identified. Mild nasopharyngeal reflux present. There is ballooning of the piriform sinuses without evidence of diverticulum. There was no significant cricopharyngeal achalasia. Dual and single contrast images of the esophagus demonstrate normal caliber, contour, and mucosal pattern. No evidence of stricture, mass, or ulcerations identified. Esophageal peristalsis is mildly disorganized. No evidence of hiatus hernia identified. No significant gastroesophageal reflux was seen during the course of the examination and on reflux views. Dual contrast and single contrast images of the stomach demonstrated normal contour and mucosal pattern without evidence of mass, ulceration, or other abnormality. Contrast freely passed into the gastric antrum and duodenal bulb without delay. Single and air-contrast images of the duodenal bulb demonstrate no abnormality. The duodenal sweep has a normal appearance, course, and mucosal fold appearance. The imaged proximal jejunum has a normal fold pattern and caliber. FLUOROSCOPY TIME: 3 minutes 45 seconds Number of Spot Images: 7 Number of Cine: 15 DOSE AREA PRODUCT: 2234 uGy-m2 (microgray-meter squared) FL/FL upper GI w air w Ba Swallow IMPRESSION: 1. Mild ballooning of the piriform sinuses without evidence of diverticulum. 2. Mildly disorganized esophageal peristalsis. 3. No significant gastroesophageal reflux or hiatal hernia seen during this examination. This procedure was performed by Edmundo Demarco PA-C, and supervised by Dr. Roberts
== END 2024-03-17 08:43 | disposition home or self-care (01) ==
LOC: HO.XRAY 08:42
PROVIDERS: PCP Internal Medicine; Visit Provider Internal Medicine
DX: R13.10 Dysphagia, unspecified (principal)
CPT/HCPCS: 74246

== ENCOUNTER → 2024-03-17 08:45 | Outpatient (BNV) | payer OTHER, SELFPAY | PROVIDERS: PCP Internal Medicine; Visit Provider Physician Assistant Surgical | DX: R13.10 Dysphagia, unspecified (principal) | CPT/HCPCS: 74246 ==

== ENCOUNTER 2024-04-08 10:57 | Outpatient (AMB) | payer OTHER, SELFPAY ==
--- NOTE | 2024-04-08 11:06 | A.OFFVIS_ITS ---
Vital Signs 04/08/24 11:12 Height 5 ft 4 in Weight 147 lb 14.883 oz BMI 25.4 BP 142/80 H Blood Pressure Location Rt brachial Position Sitting Pulse 87 Pulse Source Pulse Oximeter Pulse Oximetry (%) 97 Oxygen Delivery Method Room Air Intake Visit Reasons: Joint Pain/CM Intake Note: Patient presents for joint pain. Admittance Attendant Required: No Admittance Attendant Services: Admittance Attendant Offered & Declined Allergies Sulfa (Sulfonamide Antibiotics) [SULFA (SULFONAMIDE ANTIBIOTICS)] Allergy (Intermediate, Verified 04/08/24 11:11) RASH chlorthalidone Adverse Reaction (Intermediate, Verified 04/08/24 11:11) muscle cramps cats Allergy (Intermediate, Uncoded 02/25/24 10:43) rash dust Allergy (Intermediate, Uncoded 02/25/24 10:43) rash, itch pollon Allergy (Intermediate, Uncoded 02/25/24 10:43) rash, itch Medication List - Last Reconciled 04/08/24 by Hilton Raya MD blood pressure monitor (Blood Pressure Kit) As directed calcium carbonate (Oyster Shell Calcium) 500 mg PO BID 90 days cholecalciferol (vitamin D3) 50 mcg PO DAILY 90 days comp.stocking,thigh,long,large Use 1 pair as needed once a day 20 mmHg CPAP auto-PAP 6-20 cmH2O [exercise bike As directed] fluticasone propionate 50 mcg/actuation 1 spray intranasal DAILY humidifiers As directed ibuprofen 800 mg PO Q8H PRN 30 days lisinopril 10 mg PO DAILY 90 days loratadine 10 mg PO DAILY PRN 90 days olopatadine 0.2% (Pataday Once Daily Relief) 1 drp ophthalmic (eye) DAILY PRN 30 days omeprazole 20 mg PO DAILY 90 days [orthopedic shoes As directed] oxybutynin chloride ER 5 mg PO DAILY 90 days HPI Comments Details: This is a 68-year-old female who presents for evaluation of polyarthralgia. Merna k in 2016 she was evaluated by Dr. Nelson Samuel , then by Dr. Goldstein there was no evidence of an autoimmune rheumatic disease. She states that she fell last year and she has been having hip pain. The pain improved for some time but it has come back. It says in the right buttock and outer hip area. Worse when she sleeps on her right side at night. She also feels that she has swelling of the distal right forearm and proximal wrist. She believes her grandmother had rheumatoid arthritis [facility] Medical History Daily headache Skin lesion Overweight (BMI 25.0-29.9) Allergic rhinitis Chronic fatigue Muscle spasm GERD (gastroesophageal reflux disease) Hypovitaminosis D Surgical History No pertinent past surgical history Family History Mother No problems noted. Father Diabetes Other Mental health disorder Social History Housing: Apartment Alcohol intake: never Patient Tobacco Use Status: Former Tobacco user Tobacco use type: Cigarette e-Cigarette/Vaping Use: Never Used Second Hand Smoke Exposure: No service: No Current occupational status: disabled Cognitive needs: No Hearing needs: No Vision needs: Yes Review of Systems Musc Reports arthralgias and Reports joint swelling Physical Exam Vital Signs: Last Vital Signs Pulse 87 04/08/24 11:12 BP 142/80 H 04/08/24 11:12 Pulse Ox 97 04/08/24 11:12 Oxygen Delivery Method Room Air 04/08/24 11:12 BMI result Body Mass Index 25.4 Const General: cooperative, healthy appearing and comfortable Nutritional Appearance: average body habitus Orientation/consciousness: patient oriented x3 Limitations: no limitations HEENT Head: Yes normocephalic and Yes atraumatic Mouth: moist mucous membranes Resp Effort & Inspection: normal respiratory effort and able to speak in complete sentences Auscultation: clear to auscultation bilaterally Cardio Rate: regular rate Rhythm: regular rhythm Skin General skin exam: no rashes or lesions noted Neuro General: patient oriented x3 Extrem Other: No active synovitis Minimal osteoarthritic changes of both hands Normal nailfold capillaroscopy No trochanteric bursa area tenderness bilaterally Negative Triston's test bilaterally Negative straight leg raise test bilaterally Assessment & Plan Assessment & Plan (1) Polyarthralgia: Code(s): M25.50 - Pain in unspecified joint Category: Medical Plan: This is a 68-year-old female who presents for evaluation of polyarthralgia. Upon evaluation I do not see any evidence suggestive of an autoimmune rheumatic disease. Symptoms are mechanical and degenerative in nature possible gluteal tendinitis/trochanteric bursitis. Patient with a printout of home exercises. If no improvement. Advised patient to request physical therapy referral from her PCP.. If no improvement consider physiatry evaluation Follow-up with me as needed Plan I spent 15 minutes reviewing patient's chart, evaluating patient, counseling patient and documenting in the chart Coding Level of Care Code New Pt Level 3 (11190) Diagnoses Polyarthralgia M25.50
[2024-04-08 11:12] VITALS: BP 142/80; PULSE 87; O2SAT 97; BMI 25.4
== END 2024-04-08 11:51 | disposition home or self-care (01) ==
PROVIDERS: PCP Internal Medicine; Visit Provider Student in an Organized Health Care Education/Training Program
DX: M25.50 Pain in unspecified joint (principal)
CPT/HCPCS: 99203

== ENCOUNTER → 2024-04-08 10:57 | Outpatient (BNVA) | payer OTHER, SELFPAY | PROVIDERS: PCP Internal Medicine; Visit Provider Student in an Organized Health Care Education/Training Program | DX: M25.50 Pain in unspecified joint (principal) | CPT/HCPCS: 99202 ==

== ENCOUNTER 2024-07-22 07:59 | Emergency (ER) | payer OTHER, SELFPAY ==
--- NOTE | ~2024-07-22 | US_ITS ---
EXAMINATION: ULTRASOUND RENAL WITH DOPPLER CLINICAL INFORMATION: Hypertension. COMPARISON: Renal ultrasound dated 06/09/2015; CT abdomen and pelvis dated 06/23/2009. TECHNIQUE: Real-time grayscale, color Doppler, and duplex Doppler evaluation of the kidneys and renal vasculature was performed. FINDINGS: RENAL MEASUREMENTS: Right: 10.0 x 5.0 x 3.9 cm (Sag x AP x TV) Left: 10.2 x 5.5 x 4.6 cm (Sag x AP x TV) The renal parenchyma appears normal. A 1.0 cm left renal parapelvic simple cyst is in size and noted. No hydronephrosis or nephrolithiasis. DOPPLER INTERROGATION: Aorta: 91 cm/sec Right Main Renal Artery: Proximal: 142 cm/sec Mid: 101 cm/sec Distal: 123 cm/sec Left Main Renal Artery: Proximal: 171 cm/sec Mid: 117 cm/sec Distal: 145 cm/sec Renal-Aortic Ratio (RAR): Right: 1.6 Left: 1.9 Bilateral upper pole, interpolar and lower pole interlobar arteriolar resistive indices are within normal limits. Bilateral upper pole, interpolar and lower pole interlobar arteriolar pulse doppler waveforms are unremarkable, with uniformly rapid upstrokes and no parvus et tardus configuration. US/US renal BI IMPRESSION: No hemodynamically significant renal artery stenosis is seen bilaterally. Electronically signed by: Fab Morgan MD 07/22/2024 12:29 PM EDT
--- NOTE | ~2024-07-22 | US_ITS ---
EXAMINATION: ULTRASOUND RENAL WITH DOPPLER CLINICAL INFORMATION: Hypertension. COMPARISON: Renal ultrasound dated 06/09/2015; CT abdomen and pelvis dated 06/23/2009. TECHNIQUE: Real-time grayscale, color Doppler, and duplex Doppler evaluation of the kidneys and renal vasculature was performed. FINDINGS: RENAL MEASUREMENTS: Right: 10.0 x 5.0 x 3.9 cm (Sag x AP x TV) Left: 10.2 x 5.5 x 4.6 cm (Sag x AP x TV) The renal parenchyma appears normal. A 1.0 cm left renal parapelvic simple cyst is in size and noted. No hydronephrosis or nephrolithiasis. DOPPLER INTERROGATION: Aorta: 91 cm/sec Right Main Renal Artery: Proximal: 142 cm/sec Mid: 101 cm/sec Distal: 123 cm/sec Left Main Renal Artery: Proximal: 171 cm/sec Mid: 117 cm/sec Distal: 145 cm/sec Renal-Aortic Ratio (RAR): Right: 1.6 Left: 1.9 Bilateral upper pole, interpolar and lower pole interlobar arteriolar resistive indices are within normal limits. Bilateral upper pole, interpolar and lower pole interlobar arteriolar pulse doppler waveforms are unremarkable, with uniformly rapid upstrokes and no parvus et tardus configuration. US/US renal doppler IMPRESSION: No hemodynamically significant renal artery stenosis is seen bilaterally. Electronically signed by: Fab Morgan MD 07/22/2024 12:29 PM EDT
[2024-07-22 08:01] VITALS: BP 182/114; PULSE 80; RESP 18; TEMP 36.4; O2SAT 98; BMI 25.9
--- NOTE | 2024-07-22 08:23 | ED_ITS ---
HPI - General Adult General Chief complaint: General Medical Stated complaint: High BP Time Seen by Provider: 07/22/24 08:15 Source: patient, old records reviewed and database tester Mode of arrival: ambulatory Limitations: no limitations History of Present Illness ED Provider: MARI JOHNSON narrative: 68 yo female with PMH of HTN, CHELSEY, dysphagia, GERD, hypercalcemia, headaches here with c/o headaches, untreated HTN for months after cough with lisinopril but notes the past two weeks her BP has been extremely high and she cannot take it. She has some intermittent pains in body, flank pain, mild headaches and her vision will be blurry at times. She also has c/o wanting to see a urologist for her urinary frequency but has yet to get a referral. She has no CP/SOB. She is willing to get BP medications now given her elevation of BP MD complaint: HTN Onset (ago): week(s) (2) Location: head Radiation: non-radiation Severity: mild Quality: aching Pain Consistency: intermittent Relieving factors: none Exacerbating factors: none Associated symptoms: other (aches and pains, flank pain) Treatments prior to arrival: other (has tried herbal juices) Related Data Previous Rx's ?Medication ?Instructions ?Recorded blood pressure monitor (Blood #1 ea 10/14/22 Pressure Kit) humidifiers #1 ea 10/14/22 comp.stocking,thigh,long,large #2 ea 05/28/23 orthopedic shoes #1 ea 08/27/23 exercise bike #1 ea 09/05/23 cholecalciferol (vitamin D3) 50 50 mcg PO DAILY 90 days #90 tabs 01/21/24 mcg (2,000 unit) tablet fluticasone propionate 50 1 spray intranasal DAILY #16 mL 01/21/24 mcg/actuation nasal spray,suspension loratadine 10 mg tablet 10 mg PO DAILY PRN allergy 01/21/24 symptoms 90 days #90 tabs omeprazole 20 mg capsule,delayed 20 mg PO DAILY 90 days #90 caps 01/21/24 release lisinopril 10 mg tablet 10 mg PO DAILY 90 days #90 tabs 02/25/24 CPAP #1 ea 03/02/24 ibuprofen 800 mg tablet 800 mg PO Q8H PRN pain 30 days #90 03/23/24 tabs olopatadine 0.2 % eye drops 1 drp ophthalmic (eye) DAILY PRN 04/08/24 (Pataday Once Daily Relief) itching 30 days #2.5 mL calcium carbonate (Oyster Shell 500 mg PO BID 90 days #180 tabs 07/16/24 Calcium) oxybutynin chloride 5 mg 5 mg PO DAILY 90 days #90 tabs 07/17/24 tablet,extended release 24 hr metoprolol succinate 25 mg 25 mg PO DAILY #30 tabs 07/22/24 tablet,extended release 24 hr (Toprol XL) Allergies Allergy/AdvReac Type Severity Reaction Status Date / Time Sulfa (Sulfonamide Allergy Intermediate RASH Verified 07/22/24 08:05 Antibiotics) [SULFA (SULFONAMIDE ANTIBIOTICS)] chlorthalidone AdvReac Intermediate muscle Verified 07/22/24 08:05 cramps cats Allergy Intermediate rash Uncoded 02/25/24 10:43 dust Allergy Intermediate rash, itch Uncoded 02/25/24 10:43 pollon Allergy Intermediate rash, itch Uncoded 02/25/24 10:43 Review of Systems 2 Review of Systems: Constitutional : No Fever, No Chills, No Fatigue ENT/Mouth : No sore throat, No Rhinorrhea Eyes: No Eye Pain, No Swelling, No Redness Cardiovascular : No Chest Pain, No SOB, No Dyspnea on Exertion Respiratory : No Cough, No Sputum Gastrointestinal : No Nausea, No Vomiting, No Diarrhea, No abdominal Pain Genitourinary : No Dysuria, No Urinary Frequency, No Hematuria, Musculoskeletal : No joint pain, No Myalgias, No Joint Swelling Skin : No Skin Lesions, No rash Neuro : No Weakness, No Numbness, No Dizziness, positive Headache Psych : No Anxiety/Panic, No Depression All other systems reviewed and are negative [facility] Past Medical History Attestation statement: The following information was validated with the patient. Source: old records reviewed Medical History Daily headache Skin lesion Overweight (BMI 25.0-29.9) Allergic rhinitis Chronic fatigue Muscle spasm GERD (gastroesophageal reflux disease) Hypovitaminosis D Surgical History No pertinent past surgical history Family History Family History Mother No problems noted. Father Diabetes Other Mental health disorder Social History Social History Housing: Apartment Alcohol intake: never Patient Tobacco Use Status: Former Tobacco user Tobacco use type: Cigarette Smoked in Last 30 Days: No e-Cigarette/Vaping Use: Never Used Second Hand Smoke Exposure: No Use of substances other than those prescribed or required for medical reasons: No Advance Directives: No Advance Directives Information Provided: Yes Do you have a plan to hurt others: No Plan service: No Current occupational status: disabled Cognitive needs: No Hearing needs: No Vision needs: Yes Physical Exam ED Vital Signs: Vital Signs - 24 hr 07/22/24 08:01 07/22/24 09:01 07/22/24 09:24 Temperature 97.6 F 98.4 F Pulse Rate 80 74 78 Respiratory Rate 18 20 Blood Pressure 182/114 H 193/106 H 177/81 H Pulse Oximetry 98 96 97 Oxygen Delivery Method Room Air Room Air Room Air 07/22/24 09:27 07/22/24 10:39 Temperature 98.2 F Pulse Rate 78 72 Respiratory Rate 18 Blood Pressure 177/81 H 160/83 H Pulse Oximetry 95 Oxygen Delivery Method Room Air BMI result Body Mass Index 25.9 Appearance: Alert. Oriented X3. No acute distress. Eyes: Pupils equal, round and reactive to light. ENT: Pharynx normal. Neck: Normal inspection. Neck supple. CVS: Normal heart rate and rhythm. Pulses normal. Respiratory: No respiratory distress. Breath sounds normal. Abdomen: Soft and nontender. Skin: Skin warm and dry. Normal skin color. Normal skin turgor. Extremities: No lower extremity edema. No calf ttp Neuro: Oriented X 3. No motor deficit. No sensory deficit. steady gait no ataxia Course Course Course Narrative: refused amlodipine did agree to labetalol BP did come down well Medications Administered Discontinued Medications Generic Name Dose Route Start Last Admin Trade Name Freq PRN Reason Stop Dose Admin Amlodipine Besylate 5 mg 07/22/24 08:37 07/22/24 09:20 Amlodipine Besylate 5 Mg Tablet PO 07/22/24 08:38 Not Given ONCE ONE Protocol Labetalol HCl 5 mg 07/22/24 08:47 07/22/24 09:27 Labetalol Hcl 100 Mg/20 Ml Vial IVPUSH 07/22/24 08:48 5 mg ONCE ONE Administration Medical Decision Making Medical Decision Making [facility] Narrative: 68 yo female with PMH of HTN, CHELSEY, dysphagia, GERD, hypercalcemia, headaches here with c/o untreated HTN for months but the last two weeks very high BP - here with 2 weeks of headaches, intermittent blurry vision and bilateral flank pain at this time she has no neuro deficits and headache is not severe doubt ICH or stroke, I have ordered labs, renal study, EKG and will start on low dose amlodipine and given her degree of HTN IV labetalol 5mg. She has made it clear she will not be admitted to the hospital so I plan to get her BP down. Differential Diagnosis Differential Diagnoses: The differential diagnosis associated with the presentation includes uncontrolled HTN, renal ds Admission/Observation Consideration of admission/observation: Escalation of care including admission/observation considered BP improved normal labs normal US patient has already refused admission but she improved with one dose of IV labetalol Lab Data [facility] Lab Attestation statement: I reviewed the patient's lab results. 07/22/24 08:57 07/22/24 08:57 Labs: Lab Results 07/22/24 Range/Units 08:57 WBC 9.5 (4.8-10.8) X10*3/uL RBC 4.80 (4.20-5.50) X10*6/uL Hgb 14.8 (12.0-16.0) g/dl Hct 43.2 (37.0-47.0) % MCV 90.0 (80.0-98.0) fL MCH 30.8 (27.0-33.0) pg MCHC 34.3 (31.0-35.0) g/dl RDW 11.9 (11.0-16.0) % Plt Count 366 (160-400) X10*3/uL MPV 10.4 (9.4-12.3) fL Immature Gran % (Auto) 0.4 (0.0-0.4) % Neut % (Auto) 55.1 (45-73) % Lymph % (Auto) 29.9 (20-40) % Emmons % (Auto) 8.1 (2-11) % Eos % (Auto) 5.5 H (0-4) % Baso % (Auto) 1.0 (0-2) % Lymph # (Auto) 2.8 (1.2-4.9) X10*3/uL Emmons # (Auto) 0.8 (0.1-1.2) X10*3/uL Eos # (Auto) 0.5 H (0.0-0.4) X10*3/uL Baso # (Auto) 0.1 (0.0-0.2) X10*3/uL Abs Immat Gran (auto) 0.04 H (0.00-0.03) X10*3/uL Absolute Neuts (auto) 5.2 (2.0-8.3) x10*3/uL Absolute Nucleated RBC 0.000 (0.0-0.012) X10*3/uL Nucleated RBC % (auto) 0.0 (0.0-0.2) /100WBC Sodium 140 (135-145) mmol/L Potassium 3.7 (3.3-5.1) mmol/L Chloride 105 (96-108) mmol/L Carbon Dioxide 29 (22-29) mmol/L Anion Gap 10 L (12-20) BUN 9 (9-16) mg/dL Creatinine 0.75 (0.5-1.4) mg/dL Estim Creat Clear Calc 69.1 Estimated GFR > 60 Random Glucose 88 (60-115) mg/dL Calcium 9.9 (8.4-10.2) mg/dL Total Bilirubin 0.6 (0.0-1.0) mg/dL Direct Bilirubin 0.2 (0.0-0.5) mg/dL AST 20 (5-31) U/L ALT 17 (0-31) U/L Alkaline Phosphatase 89 (39-117) U/L Total Protein 7.6 (6.5-8.0) g/dL Albumin 4.0 (3.5-5.0) g/dL Lipase 26 (8-78) U/L Urine Color Yellow Urine Appearance Clear Urine pH 8.0 (5.0-9.0) Ur Specific [place] <= 1.005 (1.005-1.025) Urine Protein Negative (Neg-Trace) mg/dL Urine Glucose (UA) Negative (Negative) mg/dL Urine Ketones Negative (Negative) mg/dL Urine Blood Negative (Negative) Urine Nitrite Negative (Negative) Ur Leukocyte Esterase Negative (Negative) Independent Interpretation I performed an independent interpretation of an: EKG and Ultrasound (no AMI) Interpretation: Rate: 76 Rhythm: NSR Swink: left Normal P waves. Normal MARIA ELENA. Normal QRS complex. ST T wave : inverted t waves III and aVF qTC: 418 prior studies: no acute ischemia The study has been interpreted contemporaneously by me. . External Record Review External record reviewed: Outpatient record Prescription Management I considered prescription management with: Other Chronic Conditions Patient?s care impacted by: Hypertension Discharge Plan Discharge Clinical Impression: Hypertension, uncontrolled Patient Disposition: Home, Self-Care Instructions: Chronic Hypertension (ED) Additional Instructions: kidney function reassuring EKG reassuring UA normal start on new BP medication which you received IV form here US normal please follow up with your doctor hold BP medication if heart rate below 50 and top number of blood pressure is less than 90 FINDINGS: RENAL MEASUREMENTS: Right: 10.0 x 5.0 x 3.9 cm (Sag x AP x TV) Left: 10.2 x 5.5 x 4.6 cm (Sag x AP x TV) The renal parenchyma appears normal. A 1.0 cm left renal parapelvic simple cyst is in size and noted. No hydronephrosis or nephrolithiasis. DOPPLER INTERROGATION: Aorta: 91 cm/sec Right Main Renal Artery: Proximal: 142 cm/sec Mid: 101 cm/sec Distal: 123 cm/sec Left Main Renal Artery: Proximal: 171 cm/sec Mid: 117 cm/sec Distal: 145 cm/sec Renal-Aortic Ratio (RAR): Right: 1.6 Left: 1.9 Bilateral upper pole, interpolar and lower pole interlobar arteriolar resistive indices are within normal limits. Bilateral upper pole, interpolar and lower pole interlobar arteriolar pulse doppler waveforms are unremarkable, with uniformly rapid upstrokes and no parvus et tardus configuration. US/US renal BI IMPRESSION: No hemodynamically significant renal artery stenosis is seen bilaterally. Prescriptions: New metoprolol succinate [Toprol XL] 25 mg tablet extended release 24 hr 25 mg PO DAILY Qty: 30 0RF No Action (DME) humidifiers Misc See Rx Instructions .Route Qty: 1 0RF Rx Instructions: As directed (DME) blood pressure monitor [Blood Pressure Kit] Kit See Rx Instructions .Route Qty: 1 0RF Rx Instructions: As directed (DME) orthopedic shoes 8 See Rx Instructions .Route .MEDSUPPLY Qty: 1 1RF Rx Instructions: As directed (DME) exercise bike See Rx Instructions .Route .MEDSUPPLY Qty: 1 0RF Rx Instructions: As directed (DME) CPAP Device See Rx Instructions .Route Qty: 1 0RF Rx Instructions: auto-PAP 6-20 cmH2O ibuprofen 800 mg tablet 800 mg PO Q8H PRN (Reason: pain) 30 Days Qty: 90 1RF olopatadine [Pataday Once Daily Relief] 0.2 % drops 1 drp ophthalmic (eye) DAILY PRN (Reason: itching) 30 Days Qty: 2.5 0RF calcium carbonate [Oyster Shell Calcium] 500 mg calcium (1,250 mg) tablet 500 mg PO BID 90 Days Qty: 180 1RF oxybutynin chloride 5 mg tablet extended release 24hr 5 mg PO DAILY 90 Days Qty: 90 0RF (DME) comp.stocking,thigh,long,large Misc See Rx Instructions .Route Qty: 2 1RF Rx Instructions: Use 1 pair as needed once a day 20 mmHg lisinopril 10 mg tablet 10 mg PO DAILY 90 Days Qty: 90 1RF cholecalciferol (vitamin D3) 50 mcg (2,000 unit) tablet 50 mcg PO DAILY 90 Days Qty: 90 1RF fluticasone propionate 50 mcg/actuation spray,suspension 1 spray intranasal DAILY Qty: 16 1RF loratadine 10 mg tablet 10 mg PO DAILY PRN (Reason: allergy symptoms) 90 Days Qty: 90 3RF omeprazole 20 mg capsule,delayed release(DR/EC) 20 mg PO DAILY 90 Days Qty: 90 1RF Referrals: [facility] [Provider Group] (call to schedule appointment) Print Language: Jamaican
[2024-07-22 09:01] VITALS: BP 193/106; PULSE 74; RESP 20; TEMP 36.9; O2SAT 96
[2024-07-22 09:09] LABS: MANUAL DIFF FLAG NO
[2024-07-22 09:10] LABS: Basophils Absolute Auto 0.1 X10*3/uL (0.0-0.2); Eosinophils Absolute Auto 0.5 X10*3/uL (0.0-0.4); Eosinophils Percent Auto 5.5 % (0-4); Hematocrit 43.2 % (37.0-47.0); Hemoglobin 14.8 g/dl (12.0-16.0); Imm Gran Abs Auto 0.04 X10*3/uL (0.00-0.03); Imm Gran Pct Auto 0.4 % (0.0-0.4); Lymphocytes Absolute Auto 2.8 X10*3/uL (1.2-4.9); Lymphocytes Percent Auto 29.9 % (20-40); Mean Corpuscular HGB Conc 34.3 g/dl (31.0-35.0); Mean Corpuscular Hemoglobin 30.8 pg (27.0-33.0); Mean Platelet Volume 10.4 fL (9.4-12.3); Monocytes Absolute Auto 0.8 X10*3/uL (0.1-1.2); Monocytes Percent Auto 8.1 % (2-11); Neutrophils Absolute Auto 5.2 x10*3/uL (2.0-8.3); Neutrophils Percent Auto 55.1 % (45-73); Platelet Count 366 X10*3/uL (160-400); Red Cell Distribution Width 11.9 % (11.0-16.0); White Blood Count 9.5 X10*3/uL (4.8-10.8)
[2024-07-22 09:11] LABS: Appearance Urine Clear; Color Urine Yellow; Glucose Urine UA Negative (Negative); Leukocyte Esterase Urine Negative (Negative); Nitrite Urine Negative (Negative); Specific Gravity - Urine <= 1.005 (1.005-1.025); Urine Blood Negative (Negative); Urine Ketones Negative (Negative); Urine Protein Negative (Neg-Trace)
[2024-07-22 09:24] VITALS: BP 177/81; PULSE 78; O2SAT 97
[2024-07-22 09:27] VITALS: BP 177/81; PULSE 78
[2024-07-22] MEDS: Labetalol HCL 100 MG/20 ML VIAL IVPUSH (09:27)
[2024-07-22 09:28] LABS: Alanine Aminotransferase 17 U/L (0-31); Alkaline Phosphatase 89 U/L (39-117); Anion Gap 10 (12-20); Aspartate Amino Transferase 20 U/L (5-31); Bilirubin Direct 0.2 mg/dL (0.0-0.5); Bilirubin Total 0.6 mg/dL (0.0-1.0); Blood Urea Nitrogen 9 mg/dL (9-16); Calcium 9.9 mg/dL (8.4-10.2); Carbon Dioxide 29 mmol/L (22-29); Chloride 105 mmol/L (96-108); Creatinine Clr Calc Pharmacy 69.1; Estimated Glomerular Filt Rate > 60; Glucose Random 88 mg/dL (60-115); Lipase 26 U/L (8-78); Potassium 3.7 mmol/L (3.3-5.1); Sodium 140 mmol/L (135-145); Total Protein 7.6 g/dL (6.5-8.0)
--- NOTE | 2024-07-22 10:03 | PC.NURSE ---
Pt in US.
[2024-07-22 10:39] VITALS: BP 160/83; PULSE 72; RESP 18; TEMP 36.8; O2SAT 95
--- NOTE | 2024-07-22 11:18 | PC.NURSE ---
assumed care of pt at 1100, pt a&ox4, yemeni speaking, improvement in HTN w labetalol, denies any pain/dizziness/blurred vision at this time. pt pending u/s results.
[2024-07-22 13:08] VITALS: BP 179/93; PULSE 66; RESP 16; TEMP 37; O2SAT 97
== END 2024-07-22 13:09 | disposition home or self-care (01) ==
PROVIDERS: Emergency Provider Emergency Medicine; PCP Internal Medicine
DX: R51.9 Headache, unspecified (principal); I10 Essential (primary) hypertension; H53.8 Other visual disturbances; M79.10 Myalgia, unspecified site; R10.2 Pelvic and perineal pain; Z79.899 Other long term (current) drug therapy; Z87.891 Personal history of nicotine dependence
CPT/HCPCS: 36415; 76775; 80048; 80076; 81003; 83690; 85025; 93975; 96374; 99284; 99285; J1920

== ENCOUNTER 2024-07-29 10:52 | Outpatient (AMB) | payer OTHER, SELFPAY ==
--- NOTE | 2024-07-29 10:55 | MHC.PC.OV ---
Vital Signs 07/29/24 10:56 Height 5 ft 4 in Weight 150 lb BMI 25.7 BP 136/90 H Blood Pressure Location Lt brachial Position Sitting Intake Visit Reasons: bp Intake Note: Patient here for a follow up BP Intern Retail Required: No Accompanied by: Self / Same As Patient Allergies Sulfa (Sulfonamide Antibiotics) [SULFA (SULFONAMIDE ANTIBIOTICS)] Allergy (Intermediate, Verified 07/29/24 11:04) RASH chlorthalidone Adverse Reaction (Intermediate, Verified 07/29/24 11:04) muscle cramps lisinopril Adverse Reaction (Intermediate, Verified 07/29/24 11:10) Cough cats Allergy (Intermediate, Uncoded 07/29/24 11:04) rash dust Allergy (Intermediate, Uncoded 07/29/24 11:04) rash, itch pollon Allergy (Intermediate, Uncoded 07/29/24 11:04) rash, itch Medication List - Last Reconciled 07/29/24 by Jennie James MD blood pressure monitor (Blood Pressure Kit) As directed calcium carbonate (Oyster Shell Calcium) 500 mg PO BID 90 days cholecalciferol (vitamin D3) 50 mcg PO DAILY 90 days comp.stocking,thigh,long,large Use 1 pair as needed once a day 20 mmHg CPAP auto-PAP 6-20 cmH2O [exercise bike As directed] fluticasone propionate 50 mcg/actuation 1 spray intranasal DAILY humidifiers As directed ibuprofen 800 mg PO Q8H PRN 30 days lisinopril 10 mg PO DAILY 90 days loratadine 10 mg PO DAILY PRN 90 days metoprolol succinate ER (Toprol XL) 25 mg PO DAILY olopatadine 0.2% (Pataday Once Daily Relief) 1 drp ophthalmic (eye) DAILY PRN 30 days omeprazole 20 mg PO DAILY 90 days [orthopedic shoes As directed] oxybutynin chloride ER 5 mg PO DAILY 90 days Tobacco use date assessed: 01/21/24 Fall risk assessment: No Falls in past year Dental Screening Dental Screen Date: 01/21/24 HPI HPI Comments History of Present Illness Details This is a 68-year-old female with hypertension, allergic rhinitis, osteopenia and obstructive sleep apnea that comes today as hospital discharge follow-up due to elevated blood pressure. She has tried lisinopril which gave her cough and amlodipine with no success. Was prescribed metoprolol at ER and blood pressure is borderline normal to elevated. She would like to see Cardiology. She is aware that her GFR is normal and is aware of renal ultrasound results which shows no evidence of renal artery stenosis as a cause of hypertension. On antihistamines for allergic rhinitis. On calcium with vitamin-D for her osteopenia showing by DEXA scan. On CPAP machine for her obstructive sleep apnea. Due to her age she does not need a Pap smear and I did explain this to patient. [facility] Medical History (Updated 07/29/24 @ 12:03 by Jennie James MD) Daily headache Skin lesion Overweight (BMI 25.0-29.9) Allergic rhinitis Chronic fatigue Muscle spasm GERD (gastroesophageal reflux disease) Hypovitaminosis D Surgical History No pertinent past surgical history Family History Mother No problems noted. Father Diabetes Other Mental health disorder Social History Housing: Apartment Alcohol intake: never Patient Tobacco Use Status: Former Tobacco user Tobacco use type: Cigarette e-Cigarette/Vaping Use: Never Used Second Hand Smoke Exposure: No service: No Current occupational status: disabled Cognitive needs: No Hearing needs: No Vision needs: Yes Questionnaire Thrive Questionnaire Date Thrive assessed: 01/21/24 CHEN-7 AMB Questionnaire CHEN-7 Date CHEN - 7 assessed: 01/21/24 Source: Developed by Drs. Jesse Wilkins, Sulema Wilson, Lionel Hale and colleagues, with an educational jonathan from [employer]. Review of Systems Const All systems reviewed & are unremarkable except as noted in HPI and below Card Denies chest pain at rest, Denies chest pain with activity, Reports rapid heart rate, Denies edema, Denies irregular heart rhythm, Denies claudication, Denies dyspnea, Denies dyspnea on exertion, Denies orthopnea, Denies paroxysmal nocturnal dyspnea and Denies slow heart rate Resp Denies cough, Denies dyspnea and Denies dyspnea on exertion Denies urinary incontinence, Denies urinary hesitancy and Denies urinary urgency Musc Denies atrophy, Denies deformity and Denies limited range of motion Physical exam (Primary Care) Vital Signs: Last Vital Signs BP 136/90 H 07/29/24 10:56 BMI result Body Mass Index 25.7 Tobacco/Smoking Status: Tobacco use Status Tobacco use date assessed 01/21/24 07/29/24 11:01 Patient Tobacco Use Status Former Tobacco user 07/29/24 11:01 Tobacco use type Cigarette 07/29/24 11:01 e-Cigarette/Vaping Use Never Used 07/29/24 11:01 Thrive Assessment: Date of Thrive Assessment Date Thrive assessed 01/21/24 07/29/24 11:01 Resp Effort & Inspection: normal respiratory effort Auscultation: clear to auscultation bilaterally Cardio Jugular venous distension: no JVD Rate: regular rate Rhythm: regular rhythm Heart sounds: S1 normal heart sound present and S2 normal heart sound present Extrem General: Yes full ROM Office Procedures Flu Questionnaire Does the patient have a severe egg allergy?: No Immunizations Fluarix Triv [id number] (PF) 45 mcg (15 mcg x 3)/0.5 mL IM syringe Performing Provider: Jennie James MD [place] [facility] [place] [facility] Document[facility] (not given) by: MILLER Sam on 07/29/24 11:09 Reason Not Given: Patient Refused Coding Level of Care Code Est Pt Level 4 (68303) Complex EM visit Add On G2211 Diagnoses Essential (primary) hypertension I10 CHELSEY (obstructive sleep apnea) G47.33 Osteopenia, unspecified location M85.80 Osteopenia location: unspecified Seasonal allergic rhinitis due to pollen J30.1 Allergic rhinitis trigger: pollen Allergic rhinitis seasonality: seasonal Time Spent (min) 23 Assessment & Plan Assessment & Plan (1) Essential (primary) hypertension: Code(s): I10 - Essential (primary) hypertension Category: Medical Plan: Continue metoprolol. Referred to Cardiology. (2) CHELSEY (obstructive sleep apnea): Code(s): G47.33 - Obstructive sleep apnea (adult) (pediatric) Category: Medical Plan: Be compliant with CPAP machine. (3) Osteopenia: Code(s): M85.80 - Other specified disorders of bone density and structure, unspecified site Category: Medical Qualifiers: Osteopenia location: unspecified Qualified Code(s): M85.80 - Other specified disorders of bone density and structure, unspecified site Plan: Continue calcium with vitamin-D. (4) Allergic rhinitis: Code(s): J30.9 - Allergic rhinitis, unspecified Category: Medical Qualifiers: Allergic rhinitis trigger: pollen Allergic rhinitis seasonality: seasonal Qualified Code(s): J30.1 - Allergic rhinitis due to pollen Plan: Continue antihistamines as needed. Orders: Orders Influenza [id number] Immunization Today Z23 - Encounter for immunization Referrals Cardiology Referral I10 - Essential (primary) hypertension
[2024-07-29 10:56] VITALS: BP 136/90; BMI 25.7
== END 2024-07-29 11:17 | disposition home or self-care (01) ==
LOC: HO.HMCH 10:53
PROVIDERS: PCP Internal Medicine; Visit Provider Internal Medicine
DX: I10 Essential (primary) hypertension (principal); G47.33 Obstructive sleep apnea (adult) (pediatric); M85.80 Other specified disorders of bone density and structure, unspecified site; J30.1 Allergic rhinitis due to pollen; Z23 Encounter for immunization

== ENCOUNTER → 2024-07-29 10:52 | Outpatient (BNVA) | payer OTHER, SELFPAY | PROVIDERS: PCP Internal Medicine; Visit Provider Internal Medicine | DX: I10 Essential (primary) hypertension (principal); G47.33 Obstructive sleep apnea (adult) (pediatric); M85.80 Other specified disorders of bone density and structure, unspecified site; J30.1 Allergic rhinitis due to pollen | CPT/HCPCS: 90471; 99212 ==

== ENCOUNTER 2024-08-13 12:50 | Outpatient (AMB) | payer OTHER, SELFPAY ==
--- NOTE | 2024-08-13 12:54 | A.OFFVIS_ITS ---
Vital Signs 08/13/24 12:59 Height 5 ft 4 in Weight 149 lb 14.629 oz BMI 25.7 BP 184/94 H Blood Pressure Location Lt brachial Position Sitting Pulse 85 Intake Visit Reasons: ABN Imaging Intake Note: Mariajose presents in the office as a new patient abnormal imaging. CC: She had a cologuard recently and did not get results yet. Denies any GI symptoms. Branch Service Specialist Required: No Branch Service Specialist Name: [id number] Nimo Allergies Sulfa (Sulfonamide Antibiotics) [SULFA (SULFONAMIDE ANTIBIOTICS)] Allergy (Intermediate, Verified 08/13/24 13:00) RASH chlorthalidone Adverse Reaction (Intermediate, Verified 08/13/24 13:00) muscle cramps lisinopril Adverse Reaction (Intermediate, Verified 08/13/24 13:00) Cough cats Allergy (Intermediate, Uncoded 08/13/24 13:00) rash dust Allergy (Intermediate, Uncoded 08/13/24 13:00) rash, itch pollon Allergy (Intermediate, Uncoded 08/13/24 13:00) rash, itch HPI Comments Details: 68 y.o F with PMH who is here for abnormal barium swallow. Reports sensation of food and/or saliva getting stuck in upper throat. This is a long standing issue thinks ongoing for 10 years perhaps. Happens 3-4 times a week. No episodes of choking or obstruction. 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 Barium swallow reviewed - seems to suggest cricopharyngeal narrowing. Pt has never had a colo. Gets cologuard q3y. Last cologuard 06/2024 is negative. [facility] Medical History Daily headache Skin lesion Overweight (BMI 25.0-29.9) Allergic rhinitis Chronic fatigue Muscle spasm GERD (gastroesophageal reflux disease) Hypovitaminosis D Surgical History No pertinent past surgical history Family History Mother No problems noted. Father Diabetes Other Mental health disorder Social History Housing: Apartment Alcohol intake: never Patient Tobacco Use Status: Former Tobacco user Tobacco use type: Cigarette e-Cigarette/Vaping Use: Never Used Second Hand Smoke Exposure: No service: No Current occupational status: disabled Cognitive needs: No Hearing needs: No Vision needs: Yes Review of Systems Const All systems reviewed & are unremarkable except as noted in HPI and below Physical Exam Vital Signs: Last Vital Signs Pulse 85 08/13/24 12:59 BP 184/94 H 08/13/24 12:59 BMI result Body Mass Index 25.7 No apparent distress Nonicteric Abdomen soft, nondistended Alert and oriented x3, normal gait Assessment & Plan Assessment & Plan (1) Dysphagia: Code(s): R13.10 - Dysphagia, unspecified Category: Medical (2) Globus sensation: Code(s): R09.A2 - Foreign body sensation, throat Category: Medical (3) Thyroid nodule: Code(s): E04.1 - Nontoxic single thyroid nodule Category: Medical Plan As above, has longstanding, intermittent, nonprogressive dysphagia, mostly to solids. Likely in the setting of mild cricopharyngeal narrowing based on the barium swallow. Needs upper endoscopy for complete evaluation possible dilation, however patient hesitant to pursue this at this time. Reports has not been any change in her symptoms in over a decade, and by this time has learned to modulate this. She likes to avoid procedure/anesthesia as much as possible. She was given office contact info, and encouraged to reach out to us if symptoms worsen. In the meantime, also consider repeat thyroid imaging as has knownthyroid nodules that also share that anatomic space and could be contributing to the dysphagia if they have grown from before. Follow up as needed per pt's preference. Coding Level of Care Code New Pt Level 4 (63144) Diagnoses Dysphagia R13.10 Globus sensation R09.A2 Thyroid nodule E04.1
[2024-08-13 12:59] VITALS: BP 184/94; PULSE 85; BMI 25.7
== END 2024-08-13 13:20 | disposition home or self-care (01) ==
PROVIDERS: PCP Internal Medicine; Visit Provider Internal Medicine
DX: R13.10 Dysphagia, unspecified (principal); R09.A2 Foreign body sensation, throat; E04.1 Nontoxic single thyroid nodule
CPT/HCPCS: 99204

== ENCOUNTER → 2024-08-13 12:50 | Outpatient (BNVA) | payer OTHER, SELFPAY | PROVIDERS: PCP Internal Medicine; Visit Provider Internal Medicine | DX: R13.10 Dysphagia, unspecified (principal); R09.A2 Foreign body sensation, throat; E04.1 Nontoxic single thyroid nodule | CPT/HCPCS: 99202 ==

== ENCOUNTER 2024-09-17 07:52 | Outpatient (REF) | payer OTHER, SELFPAY ==
--- NOTE | ~2024-09-17 | MM_ITS ---
EXAMINATION: BONE DENSITOMETRY CLINICAL INDICATION: Menopause. COMPARISON: This is the patient's baseline examination. TECHNIQUE: Using a Fetch It DXA System (software version: 13.1) manufactured by [employer], dual-energy x-ray absorptiometry was performed of the lumbar spine and left hip. The images are of good technical quality. Summary results are attached. FINDINGS: LEFT FEMUR, NECK: BMD 0.926 g/cm2, Z-score 0.7, T-score -0.8, normal. LEFT FEMUR, TOTAL: BMD 1.011 g/cm2, Z-score 1.3, T-score 0.0, normal. AP SPINE L1-L4: BMD 0.988 g/cm2, Z-score 0.0, T-score -1.6, osteopenia. IDENTIFIED RISK FACTORS: Menopause, recurrent falls, rheumatoid arthritis. HISTORY OF FRACTURE: None listed. MEDICATIONS: Calcium. MM/XR DEXA axial skeleton IMPRESSION: 1. DIAGNOSIS: Osteopenia based on the lowest T-score value of -1.6 in the lumbar spine applying World Health Organization criteria. 2. 10-YEAR FRACTURE RISK PREDICTION, FRAX: Major osteoporotic fracture (clinical spine, forearm, hip or shoulder) 6.0%. Hip fracture 0.5%. 3. Treatment Recommendations: NOF guidelines recommend consideration for treatment in postmenopausal women and men age 50 and older presenting with the following: -A hip or vertebral (clinical or morphometric) fracture. -T-score less than or equal to -2.5 at the femoral neck or spine after appropriate evaluation to exclude secondary causes. -Low bone mass at the hip or spine and a 10-year fracture probability by FRAX of greater than or equal to 3% for hip fracture or greater than or equal to 20% for major osteoporotic fracture based on the [place] adapted WHO algorithm. 4. Other Recommendations: All treatment decisions require clinical judgment and consideration of individual patient factors, including patient preferences, comorbidities, previous drug use, risk factors not captured in the FRAX model (e.g. frailty, falls, vitamin D deficiency, increased bone turnover, interval significant decline in bone density) and possible under or overestimation of fracture risk by FRAX. Additional medical evaluation for secondary cause of low bone mineral density may be appropriate. FUTURE SCAN RECOMMENDATION: People with diagnosed cases of osteoporosis or at high risk for fracture should have regular bone mineral density tests. For patients eligible for Medicare, routine testing is allowed once every 2 years. The testing frequency can be increased to one year for patients who have rapidly progressing disease, those who are receiving or discontinuing medical therapy to restore bone mass, or have additional risk factors. Electronically signed by: Kenyatta Simmons MD 09/17/2024 08:39 AM NALDO
== END 2024-09-17 07:53 | disposition home or self-care (01) ==
LOC: HO.MAMMO 07:52
PROVIDERS: PCP Internal Medicine; Visit Provider Internal Medicine
DX: N95.9 Unspecified menopausal and perimenopausal disorder (principal)
CPT/HCPCS: 77080

== ENCOUNTER 2024-09-20 13:45 | Outpatient (AMB) | payer OTHER, SELFPAY ==
--- NOTE | 2024-09-20 14:05 | MHC.OFFVIS ---
Intake Visit Reasons: urinary frequency Intake Note: Patient is present for URINARY FREQUENCY Urology Medication:NONE Antibiotic Allergy:SULFA Blood Thinner:NONE TODAY'S PVR:0ml's Scholastic Aptitude Test Grader Required: No Allergies Sulfa (Sulfonamide Antibiotics) [SULFA (SULFONAMIDE ANTIBIOTICS)] Allergy (Intermediate, Verified 09/20/24 14:48) RASH chlorthalidone Adverse Reaction (Intermediate, Verified 09/20/24 14:48) muscle cramps lisinopril Adverse Reaction (Intermediate, Verified 09/20/24 14:48) Cough cats Allergy (Intermediate, Uncoded 09/20/24 14:48) rash dust Allergy (Intermediate, Uncoded 09/20/24 14:48) rash, itch pollon Allergy (Intermediate, Uncoded 09/20/24 14:48) rash, itch Medication List - Last Reconciled 09/20/24 by JHON Palma- blood pressure monitor (Blood Pressure Kit) As directed calcium carbonate (Oyster Shell Calcium) 500 mg PO BID 90 days cholecalciferol (vitamin D3) 50 mcg PO DAILY 90 days comp.stocking,thigh,long,large Use 1 pair as needed once a day 20 mmHg CPAP auto-PAP 6-20 cmH2O [exercise bike As directed] humidifiers As directed ibuprofen 800 mg PO Q8H PRN 30 days loratadine 10 mg PO DAILY PRN 90 days losartan 25 mg PO DAILY 90 days metoprolol succinate ER (Toprol XL) 25 mg PO DAILY olopatadine 0.2% (Pataday Once Daily Relief) 1 drp ophthalmic (eye) DAILY PRN 30 days [orthopedic shoes As directed] HPI Comments Details: Mariajose is a 68-year-old female patient of Dr. Proctor. She has a past medical history of headaches, allergic rhinitis, chronic fatigue, hypertension, GERD, and vitamin-D deficiency. She presents to the office today as a new patient for ongoing lower urinary tract symptoms. In discussion with the patient today she reports having followed up with her PCP and discussing her ongoing issues of urinary urgency, urinary frequency, and nocturia up to 3 times per night. She reports having been prescribed a medication however did not take it as she does not like taking medications. In review of patient's chart it appears patient has had renal Doppler study for her ongoing issues with hypertension that did not note any calculi or hydronephrosis bilaterally. We discussed at length potential causes for lower urinary tract symptoms patient was experiencing. She does report a history of snoring as well as fatigue upon wakening. We discussed obtaining sleep study for further assessment evaluation. We discussed obtaining bladder ultrasound for further assessment evaluation. We also discussed further treatment options to include pelvic floor therapy, medications, in office cystoscopy, and or urodynamics. In office urinalysis results reviewed with the patient today. PVR 0 mL. She denies hematuria, dysuria, foul smelling urine, changes to urinary stream, flank pain, fever, and or chills. She otherwise offers no other issues or concerns at this time. [facility] Medical History Daily headache Skin lesion Overweight (BMI 25.0-29.9) Allergic rhinitis Chronic fatigue Muscle spasm GERD (gastroesophageal reflux disease) Hypovitaminosis D Surgical History No pertinent past surgical history Family History Mother No problems noted. Father Diabetes Other Mental health disorder Social History Housing: Apartment Alcohol intake: never Patient Tobacco Use Status: Former Tobacco user Tobacco use type: Cigarette e-Cigarette/Vaping Use: Never Used Second Hand Smoke Exposure: No service: No Current occupational status: disabled Cognitive needs: No Hearing needs: No Vision needs: Yes Review of Systems Const All systems reviewed & are unremarkable except as noted in HPI and below Physical Exam Const General: cooperative, healthy appearing, comfortable, no acute distress, well developed, alert and awake Orientation/consciousness: patient oriented x3 Limitations: no limitations HEENT Head: Yes normal to inspection, Yes normocephalic and Yes atraumatic Ears: hearing grossly normal bilaterally Eyes General: appearance normal, both eyes and all related structures Neck Neck: Yes normal visual inspection and Yes trachea midline Chest Chest palpation & inspection: normal inspection of the chest Resp Effort & Inspection: normal respiratory effort and able to speak in complete sentences Cardio Rate: regular rate GI Inspection: Yes normal to inspection General: Yes no CVA tenderness Back/Spine/Pelvis Back: no CVA tenderness Skin General skin exam: no rashes or lesions noted Neuro General: patient oriented x3 Extrem General: Yes normal to inspection Psych Appearance: grossly normal and well kempt Mental Status: mental status grossly normal Speech and movement: Normal speech and movement present and Clear speech present Affect: normal affect Attitude: cooperative Thought process: Normal thought process present Thought content: Normal thought content present Insight: Fair insight present (Psych) Judgement: Fair judgement present (Psych) Office Procedures Post Void Residual Post Residual Void Post Void Residual (PVR): 0 [id number]-[id number] Void Residual by ultrasound Results AMB Urinalysis, Automated UA Leukoctes 0 Judd/uL Last Edit by ADITI Crowe on 09/20/24 14:19 UA Nitrite Negative Last Edit by ADITI Crowe on 09/20/24 14:19 UA Urobilinogen 0.2 mg/dL Last Edit by Moi Jauregui CCM on 09/20/24 14:19 UA Protein 15 mg/dL Last Edit by Moi Jauregui CCM on 09/20/24 14:19 UA pH 5.5 Last Edit by Moi Jauregui CCM on 09/20/24 14:19 UA Blood 0 Bert/uL Last Edit by ADITI Crowe on 09/20/24 14:19 UA Specific [place] 1.030 Last Edit by ADITI Crowe on 09/20/24 14:19 UA Ketone Negative Last Edit by Moi Jauregui CCM on 09/20/24 14:19 UA Bilirubin 0 mg/dL Last Edit by Moi Jauregui CCM on 09/20/24 14:19 UA Glucose 0 mg/dL Last Edit by Moi Jauregui CCM on 09/20/24 14:19 Results Reviewed Results Reviewed: Laboratory Last Values Urine pH (Auto) 5.5 09/20/24 14:19 Specific [place] (Auto) 1.030 09/20/24 14:19 Urine Protein (Auto) 15 mg/dL 09/20/24 14:19 Glucose (UA)(Auto) 0 mg/dL 09/20/24 14:19 Urine Ketones (Auto) Negative 09/20/24 14:19 Urine Blood (Auto) 0 Bert/uL 09/20/24 14:19 Urine Nitrite (Auto) Negative 09/20/24 14:19 Urine Bilirubin (Auto) 0 mg/dL 09/20/24 14:19 Urine Urobilinogen (Auto) 0.2 mg/dL 09/20/24 14:19 Leukocyte Esterase (Auto) 0 Judd/uL 09/20/24 14:19 Assessment & Plan Assessment & Plan (1) Nocturia: Code(s): R35.1 - Nocturia Category: Medical (2) Lower urinary tract symptoms: Code(s): R39.9 - Unspecified symptoms and signs involving the genitourinary system Category: Medical Plan In office urinalysis results reviewed with the patient today; as noted above. PVR 0 mL. Previous renal ultrasound results reviewed with the patient today; as noted above. Will obtain bladder ultrasound for further assessment evaluation. Will attempt to obtain home sleep study for further assessment evaluation. We discussed further treatment options of lower urinary tract symptoms patient was experiencing and risks and benefits of these treatment options. Patient does not wish to trial medication at this time nor seek pelvic floor therapy. Follow-up in 3 months with imaging and sleep study to be completed prior; or sooner with any issues, concerns, and or questions. Orders: Orders AMB Urinalysis Automated Today Z13.9 - Encounter for screening, unspecified US bladder Today R39.12 - Poor urinary stream RT home sleep study Today R06.83 - Snoring, R35.1 - Nocturia Patient Instructions: The patient had an opportunity to ask questions regarding the treatment plan. All questions were answered. Physical exam, labs, and imaging were discussed and reviewed in detail. As well as risks, benefits, and discussion of treatment choices. No major barriers to understanding were identified. The patient expressed understanding and agreement with the above treatment plan. The patient was made aware they should contact our office by phone for worsening of their current condition, the appearance of new symptoms, or with any questions or concerns. Compliance is encouraged with any medications and follow up testing that is ordered. It is a privilege to be allowed the opportunity to participate in? your urological care.? Again, if you have any questions or concerns If you have any questions or concerns please do not hesitate to contact me. The office is [phone]. This note is constructed using voice recognition software. While every effort has been made to ensure accuracy electron beam welder errors may have been included. Yours sincerely, JHON Palma- Coding Level of Care Code New Pt Level 3 (95810) Diagnoses Nocturia R35.1 Lower urinary tract symptoms R39.9 CPT Codes Post Residual Void - PVR CPT Code: 71202-Udtw Void Residual by ultrasound ([id number])
== END 2024-09-20 14:57 | disposition home or self-care (01) ==
PROVIDERS: PCP Internal Medicine; Visit Provider Nurse Practitioner Family
DX: R35.1 Nocturia (principal); R39.9 Unspecified symptoms and signs involving the genitourinary system; Z13.9 Encounter for screening, unspecified
CPT/HCPCS: 99203

== ENCOUNTER → 2024-09-20 13:45 | Outpatient (BNVA) | payer OTHER, SELFPAY | PROVIDERS: PCP Internal Medicine; Visit Provider Nurse Practitioner Family | DX: R35.1 Nocturia (principal); R39.9 Unspecified symptoms and signs involving the genitourinary system | CPT/HCPCS: 51798; 81003; 99202 ==

== ENCOUNTER 2025-01-27 07:50 | Outpatient (REF) | payer OTHER, SELFPAY ==
--- OUTSIDE RECORDS SUMMARY | 2025-01-27 07:54 | XMS_ITS | Clinical Summary ---
Author Organization [facility] Address [address] [place] [address] [address] [place] [address] Care Team Providers Care Curing Room Supervisor Name Role Phone Unavailable Primary Care Provider Unavailabl e Encounters Date Type Department Care Team Description 11/23/2024 Telephone [facility] [address] [place] [phone] Noé Franco MD New patient appt. from Last 3 Months Social History Tobacco Use Types Packs/Day Years Used Date Smoking Tobacco: Never Assessed Comments Unknown Sex and Gender Information Value Date Recorded Sex Assigned at Female 07/29/2022 10:31 AM EDT Legal Sex Female 10:31 AM EDT Gender Identity Not on file Sexual Orientation Not on file Plan of Treatment Upcoming Encounters Date Type Department Care Team (Late st Contact Info) Description 03/22/2025 9:15 AM EDT Office Visit [facility] [address] [place] [phone] Jennie Bradshaw MD [address] [place] [phone] Health Maintenance Due Date Last Done Comments CT Colonography 1956 Colonoscopy 1956 Depression Screening 1956 FIT 1956 FOBT 1956 SDOH Screening 1956 Sigmoidoscopy 1956 Alcohol/Substance Use Screening 1968 Tobacco Screening 1968 Hepatitis C Screening 1974 Mammogram 1996 Zoster Vaccines (1 of 2) 2006 COVID-19 Vaccine ( season) 2024 10/19/2022, 02/04/2022, 08/18/2021 Influenza Vaccine (#1) 2024 2, 08/06/2021, 05/18/2020, Additional history exists DTaP/Tdap/Td Vaccines (2 - Td or Tdap) 06/25/2027 06/25/2017 Colorectal Cancer Screening 07/26/2027 FIT DNA/Cologuard 07/26/2027 07/26/2024, 05/30/2020 RSV Patients and Patients Aged 60 years or older (1 - 1-dose 75+ series) 12/01/2031 Pneumococcal Vaccine: 50+ Years Completed 07/13/2022 HIB Vaccines Aged Out No longer eligi ble based on patient's age to complete this topic HPV Vaccines Aged Out No longer eligi ble based on patient's age to complete this topic Hepatitis A Vaccines Aged Out No long er eligible based on patient's age to complete this topic Hepatitis B Vaccines Aged Out No long er eligible based on patient's age to complete this topic IPV Vaccines Aged Out No longer eligi ble based on patient's age to complete this topic Meningococcal Vaccine Aged Out No janis khloe eligible based on patient's age to complete this topic RSV under 20 months Aged Out No longe r eligible based on patient's age to complete this topic Rotavirus Vaccines Aged Out No longer eligible based on patient's age to complete this topic Insurance [facility] LONG-TERM OPTIONS (O D-SNP) Member Subscriber Plan / Payer (Ef fective 2025-Present) Name:Mariajose Jay Relation to Subscriber:Self Name:Mariajose Jay Payer ID:Not on file [place] [place] Address: [address] [place] [id number]
--- OUTSIDE RECORDS SUMMARY | 2025-01-27 07:54 | XMS_ITS | Encounter Summary ---
Author Organization [facility] Address [address] [place] [address] [address] [place] [address] Care Team Providers Care Soap Press Feeder Name Role Phone Unavailable Primary Care Provider Unavailabl e Reason for Visit * Reason Onset Date Comments New patient Request 06/24/2024 Encounter Details Date Type Department Care Team (Late st Contact Info) Description 06/24/2024 Telephone [facility] [address] [place] [address] [phone] Néo Franco MD [address] [place] [address] [phone] New patient Request Social History Tobacco Use Types Packs/Day Years Used Date Smoking Tobacco: Never Assessed Comments Unknown Sex and Gender Information Value Date Recorded Sex Assigned at Female 07/29/2022 10:31 AM EDT Legal Sex Female 10:31 AM EDT Gender Identity Not on file Sexual Orientation Not on file documented as of this encounter Miscellaneous Notes * Telephone Encounter - Estefanía Marquez - 06/24/2024 9:56 AM EDT Patient added to [facility] New Patient wait list as 06/24/2024 * Telephone Encounter - Trev Ireland - 06/24/2024 9:33 AM EDT Tc from Mariajose Jay requesting to become a patient at [facility] currently haves CCA [phone] patient haves High Blood Pressure documented in this encounter Plan of Treatment Upcoming Encounters Date Type Department Care Team (Late st Contact Info) Description 03/22/2025 9:15 AM EDT Office Visit [facility] [address] [place] [address] Jennie Bradshaw MD [address] [place] [phone] documented as of this encounter Visit Diagnoses Not on filedocumented in this encounter
== END 2025-01-27 07:51 | disposition home or self-care (01) ==
LOC: HO.MAMMO 07:50
PROVIDERS: PCP Internal Medicine; Visit Provider Internal Medicine
DX: Z12.31 Encounter for screening mammogram for malignant neoplasm of breast (principal)
CPT/HCPCS: 77063; 77067

== ENCOUNTER → 2025-01-27 12:15 | Outpatient (BNV) | payer OTHER, SELFPAY | PROVIDERS: PCP Internal Medicine; Visit Provider Internal Medicine | DX: Z12.31 Encounter for screening mammogram for malignant neoplasm of breast (principal) | CPT/HCPCS: 77063; 77067 ==

== ENCOUNTER 2025-03-02 10:23 | Outpatient (AMB) | payer OTHER, SELFPAY ==
--- NOTE | 2025-03-02 10:25 | A.OFFPC_ITS ---
Vital Signs 03/02/25 10:26 Height 5 ft 4 in Weight 159 lb BMI 27.3 BP 136/80 Blood Pressure Location Lt brachial Position Sitting Intake Visit Reasons: Annual exam Intake Note: Patient here for an annual physical exam Manager Of Care Required: No Accompanied by: Self / Same As Patient Allergies Sulfa (Sulfonamide Antibiotics) [SULFA (SULFONAMIDE ANTIBIOTICS)] Allergy (Intermediate, Verified 03/02/25 10:36) RASH chlorthalidone Adverse Reaction (Intermediate, Verified 03/02/25 10:36) muscle cramps lisinopril Adverse Reaction (Intermediate, Verified 03/02/25 10:36) Cough cats Allergy (Intermediate, Uncoded 03/02/25 10:36) rash dust Allergy (Intermediate, Uncoded 03/02/25 10:36) rash, itch pollon Allergy (Intermediate, Uncoded 03/02/25 10:36) rash, itch Medication List - Last Reconciled 03/02/25 by Jennie James MD blood pressure monitor (Blood Pressure Kit) As directed calcium carbonate (Oyster Shell Calcium) 500 mg PO BID 90 days cholecalciferol (vitamin D3) 50 mcg PO DAILY 90 days comp.stocking,thigh,long,large Use 1 pair as needed once a day 20 mmHg CPAP auto-PAP 6-20 cmH2O [exercise bike As directed] humidifiers As directed ibuprofen 800 mg PO Q8H PRN 30 days loratadine 10 mg PO DAILY PRN 90 days losartan 25 mg PO DAILY 90 days metoprolol succinate ER (Toprol XL) 25 mg PO DAILY olopatadine 0.2% (Pataday Once Daily Relief) 1 drp ophthalmic (eye) DAILY PRN 30 days [orthopedic shoes As directed] Tobacco use date assessed: 03/02/25 Fall risk assessment: No Falls in past year Last assessed Fall Risk: 03/02/25 Dental Screening Dental Screen Date: 03/02/25 Did you have a dental visit in the last 12 months?: Yes Did you have a dental problem in the last 6 months where you did not have access to dental care?: No Was dental information given to patient?: Patient has dentist HPI HPI Comments History of Present Illness Details The patient is a 69-year-old female presenting for a routine physical examination. Recently, she reported a negative result from a mammogram conducted last month. She also completed a negative Cologuard test in 2023, with her next screening scheduled for 2026. The patient has no familial history of colon cancer, indicating no increased genetic predisposition to the condition. In August 2024, she was diagnosed with osteopenia, with a T score indicative of reduced bone mineral density at the lumbar spine, and is currently addressing this with calcium and vitamin D supplements, with plans for a subsequent DEXA scan in 2025. Her tetanus immunization was last updated in 2016, necessitating a future booster in 2026, and she received her pneumococcal vaccination at age 66, fulfilling her requirement for this immunization series. She has no immediate complaints or need for cervical cancer screenings given her age. - Recent negative mammogram last month - Cologuard test negative in 2023, next due in 2026 - DEXA scan showing osteopenia in [facility] er 2023, next evaluation in 2025 - Tetanus booster in 2016, next due in - Pneumonia vaccination completed at age d 66 - Calcium and Vitamin D supplementation for osteopenia PFSH Medical History Daily headache Skin lesion Overweight (BMI 25.0-29.9) Allergic rhinitis Chronic fatigue Muscle spasm GERD (gastroesophageal reflux disease) Hypovitaminosis D Surgical History No pertinent past surgical history Family History Mother No problems noted. Father Diabetes Other Mental health disorder Social History Housing: Apartment Alcohol intake: never Patient Tobacco Use Status: Former Tobacco user Tobacco use type: Cigarette e-Cigarette/Vaping Use: Never Used Second Hand Smoke Exposure: No service: No Current occupational status: disabled Cognitive needs: No Hearing needs: No Vision needs: Yes Questionnaire PHQ-9 Over the last 2 weeks, how often have you been bothered by any of the following problems? 1. Little interest or pleasure in doing things: not at all 2. Feeling down, depressed, or hopeless: not at all 3. Trouble falling or staying asleep, or sleeping too much: not at all 4. Feeling tired or having little energy: not at all 5. Poor appetite or overeating: not at all 6. Feeling bad about yourself - or that you are a failure or have let yourself or your family down: not at all 7. Trouble concentrating on things, such as reading the newspaper or watching television: not at all 8. Moving or speaking so slowly that other people could have noticed. Or the opp osite - being so fidgety or restless that you have been moving around a lot more than usual: not at all 9. Thoughts that you would be better off or of hurting yourself in some way: not at all Total score: 0 Depression Screening Interpretation: Negative Depression Screening Done: Yes 31589 - PHQ-9 Billing: Yes Source: Developed by Drs. Jesse Wilkins, Sulema Wilson, Lionel Hale and colleagues, with an educational jonathan from [employer]. Thrive Questionnaire Date Thrive assessed: 03/02/25 I am a: Patient What is your living situation today?: I have a steady place to live Within the past 12 months, did the food you bought not last and you didn't have the money to get more?: Never true Within the past 12 months, did you worry whether your food would run out before you got money to buy more?: Never true Do you have trouble paying for medicines?: No Do you have trouble getting transportation to medical appointments?: No Do you have trouble paying your heating and electricity bill?: No Do you have trouble taking care of your child, family member or friend?: No Do you have trouble with day-to-day activities such as bathing, preparing meals, shopping, managing finances, etc.?: No Are you currently unemployed and looking for a job?: No Are you interested in more education?: No Please select the resources that you would like help with: None Currently or been in a relationship where the following occur: No concerns reported THRIVE Score: 0 AUDIT C Alcohol Use Questionnaire (AUDIT-C) 1. How often do you have a drink containing alcohol?: Never Total Score: 0 CHEN-7 AMB Questionnaire CHEN-7 Date CHEN - 7 assessed: 03/02/25 Feeling nervous, anxious, or on edge: 0 = Not at all Not being able to stop or control worryin = Not at all Worrying too much about different things: 0 = Not at all Trouble relaxin = Not at all Being so restless that it is hard to sit still: 0 = Not at all Becoming easily annoyed or irritable: 0 = Not at all Feeling afraid as if something awful might happen: 0 = Not at all Total CHEN-7 score (0-4 normal; 5-9 mild; 10-14 moderate; 15-21 severe): 0 Source: Developed by Drs. Jesse Wilkins, Sulema Wilson, Lionel Hale and colleagues, with an educational jonathan from [employer]. CHEN-7 Assessment Billing CHEN-7 Assessment Tool: CHEN-7 Assessment 02275 Review of Systems Const All systems reviewed & are unremarkable except as noted in HPI and below Card Denies chest pain at rest, Denies chest pain with activity, Denies edema, Denies irregular heart rhythm, Denies claudication, Denies dyspnea, Denies dyspnea on exertion, Denies orthopnea, Denies paroxysmal nocturnal dyspnea and Denies slow heart rate Resp Denies cough, Denies dyspnea and Denies dyspnea on exertion GI Denies abdominal pain, Denies change in bowel habits, Denies excessive flatus, Denies nausea and Denies vomiting Denies urinary incontinence, Denies urinary hesitancy and Denies urinary urgency Physical exam (Primary Care) Vital Signs: Last Vital Signs BP 136/80 03/02/25 10:26 BMI result Body Mass Index 27.3 Tobacco/Smoking Status: Tobacco use Status Tobacco use date assessed 03/02/25 03/02/25 10:32 Patient Tobacco Use Status Former Tobacco user 03/02/25 10:32 Tobacco use type Cigarette 03/02/25 10:32 e-Cigarette/Vaping Use Never Used 03/02/25 10:32 PHQ-9: PHQ-9 Score PHQ-9: Total score 0 03/02/25 10:39 Depression Screening Interpretation: Negative Thrive Assessment: Date of Thrive Assessment Date Thrive assessed 03/02/25 03/02/25 10:32 Currently or been in a relationship where the following occur: No concerns rep orted HENMT Head: Yes normal to inspection, Yes normocephalic and Yes atraumatic Ears: external ears normal Eyes General: appearance normal, both eyes and all related structures Eyelids: Yes eyelids normal Conjunctivae: conjunctivae normal Neck Neck: Yes normal visual inspection and Yes supple Resp Effort & Inspection: normal respiratory effort Auscultation: clear to auscultation bilaterally Cardio Jugular venous distension: no JVD Rate: regular rate Rhythm: regular rhythm Heart sounds: S1 normal heart sound present and S2 normal heart sound present GI Inspection: Yes normal to inspection Palpation (GI): Soft to palpation and nontender Auscultation: normal bowel sounds Skin General skin exam: no rashes or lesions noted Neuro General: no focal motor deficits Extrem General: Yes full ROM Psych Appearance: grossly normal Coding Level of Care Code Est Pt Prev Care >65y(14000) Diagnoses Physical exam Z00.00 Additional Codes CHEN-7 Assessment Billing - CHEN-7 Assessment Tool: CHEN-7 Assessment 92740 ([id number]) PHQ-9 - 61506 - PHQ-9 Billing: Yes ([id number]) Time Spent (min) 31 Assessment & Plan Assessment & Plan (1) Physical exam: Code(s): Z00.00 - Encounter for general adult medical examination without abnormal findings Category: Medical Plan The tetanus and pneumococcal vaccinations are up to date. As per age guidelines, Pap smears are no longer required. Ongoing health maintenance measures will be reinforced, and future health screenings will proceed as scheduled.: Patient was informed and verbally consented to the use of an ambient scribe for clinic note documentation during this visit. During the visit, I discussed with the patient her recent negative screening results for mammogram and colon cancer. We reviewed her bone health, given her osteopenia diagnosis, and continued the current regimen of calcium and vitamin D supplements, with plans to follow up with a DEXA scan in 2025. I addressed her vaccine records for tetanus and pneumococcal vaccinations, ensuring there are no immediate immunization requirements. There was no necessity for further Pap smears due to her age. The patient was reminded of upcoming health screenings and the importance of maintaining supplementation for bone health. Orders: Orders T Spot TB Today Z11.1 - Encounter for screening for respiratory tuberculosis Lipid Panel Today E78.5 - Hyperlipidemia, unspecified Vitamin D 25-OH Total Today E55.9 - Vitamin D deficiency, unspecified Comprehensive [place]. Panel Fast Today I10 - Essential (primary) hypertension Rubeola IgG (Measles) Today Z23 - Encounter for immunization Mumps Virus IgG Antibody Today Z23 - Encounter for immunization Rubella IgG Antibody Today Z23 - Encounter for immunization Hepatitis B Profile Today Z23 - Encounter for immunization Medications: Discontinued metoprolol succinate ER (Toprol XL) Discontinued Reason: Patient Refused 25 mg PO DAILY 30 tabs 11RF losartan Discontinued Reason: Patient Completed Course 25 mg PO DAILY 90 days 90 tabs 0RF Patient Instructions: - Continue calcium and Vitamin D supplements as directed. - Follow up with the next scheduled DEXA scan in 2025. - Return for a Cologuard test in 2026. - Maintain vaccination schedule, with the next tetanus booster due in 2026. - Monitor for any new symptoms and report if they occur. - Maintain regular health checkups as advised.
[2025-03-02 10:26] VITALS: BP 136/80; BMI 27.3
--- OUTSIDE RECORDS SUMMARY | 2025-03-02 11:01 | XMS_ITS | Encounter Summary ---
Author Organization [facility] [facility] Address [address] [place] [address] [address] [place] [address] Care Team Providers Care Science Interpreter Name Role Phone Unavailable Primary Care Provider Unavailabl e Reason for Visit * Reason Onset Date Comments New patient Request 06/24/2024 Encounter Details Date Type Department Care Team (Late st Contact Info) Description 06/24/2024 Telephone [facility] MED[facility]INE [address] [place] [phone] Noé Franco MD [address] [place] [address] [phone] New patient Request Social History Tobacco Use [...] 06/24/2024 9:56 AM EDT Patient added to [facility] New Patient wait list as 06/24/2024 * Telephone Encounter - Trev Ireland - 06/24/2024 9:33 AM EDT Tc from Mariajose Jay requesting to become a patient at [facility] currently haves CCA [id number] patient haves High Blood Pressure documented in this encounter Plan of Treatment Upcoming Encounters Date Type Department Care Team (Late st Contact Info) Description 03/22/2025 9:15 AM EDT Office Visit [facility] [address] [place] [address] Jennie Bradshaw MD [address] [place], [place] [phone] documented as of this encounter Visit Diagnoses Not on filedocumented in this encounter
== END 2025-03-02 10:50 | disposition home or self-care (01) ==
LOC: HO.HMCH 10:23
PROVIDERS: PCP Internal Medicine; Visit Provider Internal Medicine
DX: Z00.00 Encounter for general adult medical examination without abnormal findings (principal)

== ENCOUNTER → 2025-03-02 10:23 | Outpatient (BNVA) | payer OTHER, SELFPAY | PROVIDERS: PCP Internal Medicine; Visit Provider Internal Medicine | DX: Z00.00 Encounter for general adult medical examination without abnormal findings (principal); M85.88 Other specified disorders of bone density and structure, other site; E78.5 Hyperlipidemia, unspecified; E55.9 Vitamin D deficiency, unspecified; I10 Essential (primary) hypertension | CPT/HCPCS: 96127; 99397 ==

== ENCOUNTER 2025-03-04 06:46 | Outpatient (REF) | payer OTHER, SELFPAY ==
--- OUTSIDE RECORDS SUMMARY | 2025-03-04 06:49 | XMS_ITS | Encounter Summary ---
Author Organization [employer] [facility] Address [address] [place] [address] [address] [place] [address] Care Team Providers Care Device Engineer Name Role Phone Unavailable Primary Care Provider Unavailabl e Reason for Visit * Reason Onset Date Comments New patient Request 06/24/2024 Encounter Details Date Type Department Care Team (Late st Contact Info) Description 06/24/2024 Telephone [facility] MEDICINE [address] [place] [phone] Noé Franco MD [address] [place] [address] [phone] New patient Request Social History Tobacco Use [...] 06/24/2024 9:56 AM EDT Patient added to [facility] New Patient wait list as 06/24/2024 * Telephone Encounter - Trev Ireland - 06/24/2024 9:33 AM EDT Tc from Mariajose Jay requesting to become a patient at [facility] currently haves CCA [id number] patient haves High Blood Pressure documented in this encounter Plan of Treatment Upcoming Encounters Date Type Department Care Team (Late st Contact Info) Description 03/22/2025 9:15 AM EDT Office Visit [facility] MED[facility]INE [address] [place] [address] Jennie Bradshaw MD [address] [place], [place] [phone] documented as of this encounter Visit Diagnoses Not on filedocumented in this encounter
[2025-03-04 07:57] LABS: Alanine Aminotransferase 38 U/L (0-31); Alkaline Phosphatase 88 U/L (39-117); Anion Gap 12 (12-20); Aspartate Amino Transferase 32 U/L (5-31); Bilirubin Total 0.6 mg/dL (0.0-1.0); Blood Urea Nitrogen 12 mg/dL (9-16); Calcium 9.8 mg/dL (8.4-10.2); Carbon Dioxide 25 mmol/L (22-29); Chloride 109 mmol/L (96-108); Cholesterol 183 mg/dL (<200); Estimated Glomerular Filt Rate > 60; Glucose Fasting 108 mg/dL (60-99); HDL Cholesterol 54 mg/dL (>40); LDL Cholesterol Calculated 92 mg/dL (<100); Potassium 3.7 mmol/L (3.3-5.1); Sodium 142 mmol/L (135-145); Total Protein 7.3 g/dL (6.5-8.0); Triglycerides 185 mg/dL (<150)
[2025-03-04 08:19] LABS: Vitamin D 25-OH Total 36.3 ng/mL (>30)
[2025-03-04 08:26] LABS: HBS Num1 > 1000.00 mIU/mL (0-7.99); HBc Num1 0.06 S/CO (0.00-0.79); HBsAGNum1 0.31 S/CO (0.00-0.99); Hepatitis B Core Antibody Nonreactive (Nonreactive); Hepatitis B Surface Antigen Negative (Negative); ~Hepatitis B Surface Antibody REACTIVE (Nonreactive)
[2025-03-07 14:33] LABS: Rubeola IgG (Measles) >300.00 AU/mL
[2025-03-07 16:38] LABS: TS Negative Control Passed; TS Panel A 0; TS Panel B 0; TS Positive Control Passed; TSpotTB Negative (Negative)
== END 2025-03-04 06:47 | disposition home or self-care (01) ==
LOC: HO.LAB 06:46
PROVIDERS: PCP Internal Medicine; Visit Provider Internal Medicine
DX: I10 Essential (primary) hypertension (principal); E78.5 Hyperlipidemia, unspecified; E55.9 Vitamin D deficiency, unspecified; Z11.1 Encounter for screening for respiratory tuberculosis; Z11.59 Encounter for screening for other viral diseases; Z72.89 Other problems related to lifestyle
CPT/HCPCS: 36415; 80053; 80061; 82306; 86481; 86704; 86706; 86735; 86762; 86765; 87340

== ENCOUNTER 2025-03-22 11:11 | Outpatient (REF) | payer OTHER, SELFPAY ==
--- NOTE | ~2025-03-22 | XR_ITS ---
EXAMINATION: XR FOOT, RIGHT CLINICAL INFORMATION: right heel pain COMPARISON: June 27, 2014. TECHNIQUE: AP, lateral, and oblique views of the right foot. FINDINGS: No acute cortical disruption or malalignment. Asymmetric joint space narrowing involving the first tarsometatarsal joint and interphalangeal joint of the toes. No lytic or blastic lesions. No subcutaneous emphysema. No gross joint effusion. XR/XR foot RT min 3V IMPRESSION: Mild osteoarthrosis. Electronically signed by: Alden Solorio MD 03/22/2025 11:58 AM EDT
--- OUTSIDE RECORDS SUMMARY | 2025-03-22 12:49 | XMS_ITS | Encounter Summary ---
Author Organization [facility] Address [address] [place] [address] Care Team Providers Care Credentialing Manager Name Role Phone Jennie Bradshaw MD Primary Care Provider + Encounter Details Date Type Department Care Team (Latest Contact Info) Description 03/22/2025 Travel Social History Tobacco Use Types Packs/Day Years Used Date Smoking Tobacco: Never Smokeless Tobacco: Never Alcohol Use Standard Drinks/Week Comments Never 0 (1 standard drink = 0.6 oz pur e alcohol) Housing Stability Answer Date Recorded What is your housing situation today? I have freda booker 03/11/[address] you li ve. Do you have problems with any of the following? None of the above 03/11/2025 Food Insecurity Answer Date Recorded Within the past 12 months, y ou worried that your food would run out before you got money to buy more: Never True 03/11/2025 Within the past 12 months,th e food you bought just didn't last and you didn't have enough money to get more: Never True Transportation Answer Date Recorded In the past 12 months, has l ack of transportation kept you from medical appts, meetings, work or from getting things needed for daily living? No 03/11/2025 Utilities Answer Date Recorded In the past 12 months, has t he electric, gas, oil or water company threatened to shut off services in your home? No 03/11/2025 Depression Answer Date Recorded Patient Health Questionnaire-2 Score 0 03/22/2025 Internet Access Answer Date Recorded Internet Access Q1 No 03/11/2025 Internet Access Q2 I do not want or need it 02/27 Comments No Sex and Gender Information Value Date Recorded Sex Assigned at Female 07/29/2022 10:31 AM EDT Legal Sex Female 10:31 AM EDT Gender Identity Choose not to disclose 8:59 AM EDT Sexual Orientation Don't know 03/21/2025 9: 00 AM EDT documented as of this encounter Functional Status * Question Answer Date of Assessment Author Feeling nervous, anxious, or on edge 0 03/22/2025 9:10 AM EDT Gudelia Terrazas MA Not being able to stop or co ntrol worrying 0 03/22/2025 9:10 AM EDT Gudelia Terrazas MA * Over the past 2 weeks, how often have you been bothered by any of the following problems? Question Answer Date of Assessment Author Little interest or pleasure in doing things Not at all 03/22/2025 9:10 AM EDT Gudelia Terrazas MA Feeling down, depressed, or hopeless Not at all 03/22/2025 9:10 AM EDT Gudelia Terrazas MA Patient Health Questionnaire-2 Score 0 03/22/2025 9:10 AM EDT Kathia Terrazas MA documented as of this encounter Plan of Treatment Upcoming Encounters Date Type Department Care Team (Late st Contact Info) Description 06/13/2025 2:15 PM EDT Office Visit [facility] [address] [place] [address] Jennie Bradshaw MD [address] [place] [address] documented as of this encounter Visit Diagnoses Not on filedocumented in this encounter Care Teams Credentialing Manager Relationship Specialty Start Date End Date Jennie Bradshaw MD [address] [place] [phone] PCP - General Internal Medicine 03/22/25 documented as of this encounter
[2025-03-22 13:21] LABS: Estimated Average Glucose 103 mg/dL; Hemoglobin A1c % 5.2 % (<6.0)
[2025-03-22 13:45] LABS: Alanine Aminotransferase 30 U/L (0-31); Albumin Level 4.2 g/dL (3.5-5.0); Alkaline Phosphatase 86 U/L (39-117); Aspartate Amino Transferase 27 U/L (5-31); Bilirubin Direct 0.2 mg/dL (0.0-0.5); Bilirubin Total 0.4 mg/dL (0.0-1.0); Gamma Glutamyl Transpeptidase 22 U/L (7-33); TSH reflex Free T4 1.08 uIU/mL (0.32-4.0); Total Protein 7.5 g/dL (6.5-8.0)
== END 2025-03-22 11:12 | disposition home or self-care (01) ==
LOC: HO.HHCL 11:11
PROVIDERS: PCP Internal Medicine; Visit Provider Internal Medicine
DX: R74.01 Elevation of levels of liver transaminase levels (principal); R73.9 Hyperglycemia, unspecified; M79.671 Pain in right foot; G89.29 Other chronic pain
CPT/HCPCS: 36415; 73630; 80076; 82977; 83036; 84443

== ENCOUNTER → 2025-03-22 11:37 | Outpatient (BNV) | payer OTHER, SELFPAY | PROVIDERS: PCP Internal Medicine; Visit Provider Radiology Diagnostic Radiology | DX: M79.671 Pain in right foot (principal) | CPT/HCPCS: 73630 ==

== ENCOUNTER 2025-07-22 12:14 | Outpatient (REF) | payer OTHER, SELFPAY ==
--- NOTE | ~2025-07-22 | XR_ITS ---
EXAMINATION: XR KNEE, LEFT CLINICAL INFORMATION: left knee OA COMPARISON: July 10, 2018 TECHNIQUE: AP lateral and sunrise views. of the left knee. FINDINGS: No acute cortical disruption or malalignment. Mild asymmetric joint space narrowing with mild sclerosis along the articular surface involving the medial compartment. Small marginal osteophyte formation and medial femoral condyle and medial tibial plateau. No suprapatellar bursa joint effusion. No lytic or blastic lesions. No soft tissue calcifications. XR/XR knee LT 3V IMPRESSION: Mild medial compartment osteoarthrosis/osteoarthritis. EXAMINATION: XR SHOULDER, LEFT CLINICAL INFORMATION: left knee OA COMPARISON: May 17, 2015. TECHNIQUE: AP external rotation, Grashey, scapular Y, and axillary views of the left shoulder. FINDINGS: No acute cortical disruption or malalignment. No lytic or blastic lesions. No metallic or radiopaque foreign body. Well-corticated the abnormality in the acromion. No soft tissue calcifications. IMPRESSION: Mild degenerative changes. Electronically signed by: Alden Solorio MD 07/22/2025 12:55 PM EDT
--- NOTE | ~2025-07-22 | XR_ITS ---
EXAMINATION: XR KNEE, LEFT CLINICAL INFORMATION: left knee OA COMPARISON: July 10, 2018 TECHNIQUE: AP lateral and sunrise views. of the left knee. FINDINGS: No acute cortical disruption or malalignment. Mild asymmetric joint space narrowing with mild sclerosis along the articular surface involving the medial compartment. Small marginal osteophyte formation and medial femoral condyle and medial tibial plateau. No suprapatellar bursa joint effusion. No lytic or blastic lesions. No soft tissue calcifications. XR/XR shoulder LT min 2V IMPRESSION: Mild medial compartment osteoarthrosis/osteoarthritis. EXAMINATION: XR SHOULDER, LEFT CLINICAL INFORMATION: left knee OA COMPARISON: May 17, 2015. TECHNIQUE: AP external rotation, Grashey, scapular Y, and axillary views of the left shoulder. FINDINGS: No acute cortical disruption or malalignment. No lytic or blastic lesions. No metallic or radiopaque foreign body. Well-corticated the abnormality in the acromion. No soft tissue calcifications. IMPRESSION: Mild degenerative changes. Electronically signed by: Alden Solorio MD 07/22/2025 12:55 PM EDT
--- OUTSIDE RECORDS SUMMARY | 2025-07-22 11:30 | XMS_ITS | Encounter Summary ---
Author Organization [employer] Address [address] [place] [address] [address] [place] [address] Care Team Providers Care Deputy Assessor Name Role Phone Jennie Bradshaw MD Primary Care Provider + Reason for Visit * Reason Comments Follow-up Encounter Details Date Type Department Care Team ([facility] Contact Info) Description 07/22/2025 11:30 AM EDT Office Visit [facility] [address] [place], [place] [id number] Jennie Bradshaw MD [address] [place] [address] Primary hypertension (Primary Dx); High liver transaminase level; Chronic left shoulder pain; Arthritis of left knee; Arthrosis of foot, right; Mixed stress and urge urinary incontinence Social History Tobacco Use Types Packs/Day Years Used Date Smoking Tobacco: Never Smokeless Tobacco: Never Tobacco Cessation:Counseling Given: Not Answered Alcohol Use Standard Drinks/Week Comments Never 0 (1 standard drink = 0.6 oz pur e alcohol) Depression Answer Date Recorded Patient Health Questionnaire-9 Score 1 07/22/2025 Patient Health Questionnaire-9 Score 1 07/22/2025 Last PHQ-9: Questionnaire Data Not on file 1 Housing Stability Answer Date Recorded What is [...] Date Recorded Patient Health Questionnaire-2 Score 0 07/22/2025 Internet Access Answer Date Recorded Internet Access [...] AM EDT documented as of this encounter Last Filed Vital Signs Vital Sign Reading Time Taken Comments Blood Pressure 160/105 07/22/2025 12:00 PM EDT Pulse 90 07/22/2025 11:28 AM EDT Temperature 36.6 C (97.8 F) 07/22/2025 11:28 AM EDT Respiratory Rate 20 07/22/2025 11:28 AM EDT Oxygen Saturation - - Inhaled Oxygen Concentration - - Weight 69.9 kg (154 lb) 07/22/2025 11:28 AM EDT Height 162.6 cm (5' 4 ) 07/22/2025 11:28 AM EDT Body Mass Index 26.43 07/22/2025 11:28 AM EDT documented in this encounter Functional Status * Over the past 2 weeks, how often have you been bothered by any of the following problems? Question Answer Date of Assessment Author Patient Health Questionnaire-2 Score 0 07/22/2025 11:30 AM EDT Phyllis Ruggiero MA * Little interest or pleasure in doing things Answer Date of Assessment Author Not at all 07/22/2025 11:30 AM EDT Phyllis Stoll MA * Feeling down, depressed, or hopeless Answer Date of Assessment Author Not at all 07/22/2025 11:30 AM EDT Phyllis Stoll MA * Trouble falling or staying asleep, or sleeping too much Answer Date of Assessment Author Several days 07/22/2025 11:30 AM EDT Phyllis Stoll MA * Feeling tired or having little energy Answer Date of Assessment Author Not at all 07/22/2025 11:30 AM EDT Phyllis Stoll MA * Poor appetite or overeating Answer Date of Assessment Author Not at all 07/22/2025 11:30 AM EDT Phyllis Stoll MA * Feeling bad about yourself - or that you are a failure or have let yourself or your family down Answer Date of Assessment Author Not at all 07/22/2025 11:30 AM EDT Phyllis Stoll MA * Trouble concentrating on things, such as reading the newspaper or watching television Answer Date of Assessment Author Not at all 07/22/2025 11:30 AM EDT Phyllis Stoll MA * Moving or speaking so slowly that other people could have noticed? Or the opposite - being so fidgety or restless that you have been moving around a lot more than usual. Answer Date of Assessment Author Not at all 07/22/2025 11:30 AM EDPhyllis Vences MA * Thoughts that you would be better off or hurting yourself in some way Answer Date of Assessment Author Not at all 07/22/2025 11:30 AM EDT Phyllis Stoll MA * Patient Health Questionnaire-9 Score Answer Date of Assessment Author 1 07/22/2025 11:30 AM EDPhyllis Vences MA * How difficult have these problems made it for you to do your work, take care of things at home, or get along with other people? Answer Date of Assessment Author Not difficult at all 07/22/2025 11:30 AM EDT Phyllis Frank MA * Over the last 2 weeks, how often have you been bothered by any of the following problems? Question Answer Date of Assessment Author Feeling nervous, anxious, or on edge 0 07/22/2025 11:29 AM EDT Phyllis Watson MA Not being able to stop or control worrying 1 07/22/2025 11:29 AM EDT Phyllis Watson MA Worrying too much about different things 1 07/22/2025 11:29 AM EDT Phyllis Watson MA Trouble relaxing 1 07/22/2025 11:29 AM EDT Phyllis Watson MA Being so restless that it is hard to sit still 0 07/22/2025 11:29 AM EDT Phyllis Watson MA Becoming easily annoyed or irritable 0 07/22/2025 11:29 AM EDT Phyllis Watson MA Feeling afraid as if something awful might happen 0 07/22/2025 11:29 AM EDT Phyllis Araya MA CHEN-7 Total Score 3 07/22/2025 11:29 AM EDT Phyllis Watson MA documented as of this encounter Miscellaneous Notes * Patient Education Note - Jennie Bradshaw MD - 07/22/2025 4:03 PM EDT Images from the original note were not included. Patient Education Table of Contents Presi?n arterial briana (hipertensi?n) en adultos: qu?? brynn mercer (High Blood Pressure (Hypertension) in Adults: What to Know) To view videos and all your education online visit, [email or web address] or scan this QR code with your smartphone. Access to this content will in one year. Presi?n arterial briana (hipertensi?n) en adultos: qu?? brynn mercer High Blood Pressure (Hypertension) in Adults: What to Know La presi?n arterial briana se produce cuando la cleve bombea por las arterias con kiana fuerza. Estotambi?n se llama hipertensi?n. Las arterias son los vasos sangu?neos que transportan la cleve desde el coraz?n hacia todo el cuerpo. Si tiene presi?n arterial briana, el coraz?n tiene que trabajar m?s para bombear la cleve. [place] puede provocar que las arterias se estrechen o se pongan r?gidas. La hipertensi?n puede provocar un infarto de miocardio, insuficiencia cardiaca, un accidente cerebrovascular o, incluso, luigi enfermedad renal. ?Cu?les son las causas? En algunos casos, se desconoce cu?l es la causa. Sin embargo, hay muchos problemas de cathie que pueden causar presi?n arterial briana. ?Qu?? aumenta el riesgo? Es m?s propenso a tener presi?n arterial briana si: Es luigi persona de edad avanzada. Tiene antecedentes de esto: ? Enfermedad card?elisa. ? Colesterol alto. ? Enfermedad renal. Tiene mucho estr?s en gould david. Alg?n familiar tiene hipertensi?n. Tiene apnea del krystin?o. Tiene sobrepeso. Tambi?n puede ser m?s propenso a tener presi?n arterial briana si: Fuma. No hace suficiente ejercicio. Come y deidra grasa, az?car, calor?as o theodore (sodio) en exceso. Deidra alcohol en exceso. ?Cu?les son los signos o s?ntomas? En ocasiones, es posible que no tenga s?ntomas. Sin embargo, cuanto m?s briana sea la presi?n arterial, mayores ser?n las probabilidades de tener s?ntomas. Estos incluyen los siguientes: Layton de dinh. Latidos card?acos acelerados o irregulares. Sensaci?n de mareo. Cambios en la vista. Sangrados nasales. Dolor en el pecho y sensaci?n de falta de aire. V?mitos o ganas de vomitar. ?C?mo se diagnostica? Se puede diagnosticar en funci?n de los antecedentes m?dicos, los s?ntomas y un lectura de la presi?n arterial. Luigi presi?n arterial saludable para la mayor?a de los adultos es <120/80. El primer n?husam es lapresi?n m?s briana a la que se llega en las arterias cuando el coraz?n late. El florecita n?husam es la presi?n m?s baja en las arterias cuando el coraz?n descansa entre latidos. Si gould presi?n arterial es superior a 130/80, es posible que le digan que tiene presi?n arterial briana. Si en luigi consulta se determina que tiene presi?n arterial briana, es posible que le pidan que kody esto: ? Que vuelva otro d?a para que le vuelvan a controlar la presi?n arterial. ? Que se controle la presi?n arterial en casa heidy 1 semana o m?s. Si tiene la presi?n arterial briana, es posible que le alyssa an?lisis de cleve o estudios de diagn?stico por imagen. ?Cu?l es el tratamiento? Es posible que deba hacer lo siguiente: Cambiar la dieta. Jamel medicamentos para bajar la presi?n arterial. Realizar m?s actividad f?jennifer. [place] presi?n arterial adecuada depender?? de la edad y el estado de cathie. Siga estas instrucciones en casa: Medicamentos Adamson los medicamentos solo liz se le indic?. No omita las dosis de medicamentos para la presi?n arterial. Informe al m?dico si el medicamento le provoca efectos secundarios. Comida y bebida Consuma alimentos que eli buenos para el coraz?n. Se recomienda que intente seguir la dieta DASH (Dietary Approaches to Stop Hypertension, Enfoques diet?ticos para detener la hipertensi?n). Para alimentarse de esta manera, kody lo siguiente: ? Coma gran cantidad de frutas y verduras frescas. Trate de llenar la mitad del plato con frutas y verduras. ? Llene alrededor de un cuarto del plato con cereales integrales. Los cereales integrales incluyen los siguientes: ? Pasta integral. ? Arroz integral. ? Panes integrales. ? Coma y enzo productos l?cteos con bajo contenido de grasa, liz yogur bajo en grasas o leche descremada. ? Evite consumir juárez de carne grasa, todd curadas y carne de ave con piel. ? Llene alrededor de luigi cuarta parte del plato con prote?piedad bajas en grasa (magras), por ejemplo: ? Pescado. ? Jacky sin piel. ? Frijoles. ? Huevos. ? Tofu. Evite los alimentos procesados. En general, estos tienen mayor cantidad de theodore, az?car agregada y grasa. Intente consumir menos de 1,500 MG de theodore al d?a. No enzo alcohol si: ? El m?dico le indica que no lo kody. ? Est?? embarazada, puede estar embarazada o planea quedar embarazada. Si deidra alcohol, kody lo siguiente: ? Limite la cantidad que deidra a lo siguiente: ? Entre 0 y 1 medida al d?a si es jasmyne. ? Entre 0 y 2 medidas al d?a si es hombre. ? Sepa cu?nta cantidad de alcohol tienen las bebidas que joaquin. En los [place], luigi medida esuna botella de cerveza de 12 OZ (355 ML), un vaso de vino de 5 OZ (148 ML) o un vaso de luigi bebida alcoh?lica de briana graduaci?n de 1? OZ (44 ML). Estilo de david Mantenga un peso saludable. Pregunte cu?l es el peso adecuado para usted. Intente hacer ejercicios que alyssa que el coraz?n ilya m?s r?pido entre 90 y 150 minutos a la semana. [place] se llama ejercicio aer?bico. [place] puede incluir lo siguiente: ? Caminar. ? Nadar. ? Andar en bicicleta. Incluya ejercicios para fortalecer los m?sculos heidy 30 minutos, al menos 3 d?as a la semana, por ejemplo: ? Pilates. ? Levantamiento de pesas. Instrucciones generales No fume, vapee ni consuma nicotina o tabaco. Controle la presi?n arterial en casa liz se le indic?. Asista a todas las visitas de seguimiento. El m?dico deber?? comprobar que la presi?n arterial est?? bajando. Comun?quese con un m?dico si: Tiene layton de dinh. Siente mareos. Tiene cambios en la vista. Solicite ayuda de inmediato si: Siente dolor en el est?tatiana, la espalda o el pecho. Tiene dificultad para respirar. Se desmaya. Tiene alg?n signo de accidente cerebrovascular. ?BE FAST? (Sea r?pido) es luigi manera f?cil de recordar las principales se?ales de advertencia: B: balance (equilibrio). Mareos, dificultad repentina para caminar o p?rdida del equilibrio. E: eyes (ojos). Dificultad para nigel o un cambio en c?mo ve. F: face (josé manuel). Debilidad repentina o sensaci?n de adormecimiento de la josé manuel. La josé manuel o el p?rpado pueden caerse hacia un lado. A: arms (brazos). Debilidad o p?rdida de la sensibilidad en un brazo. [place] ocurre con rapidez y, a menudo, de un solo lado. S: speech (habla). Dificultad repentina para hablar, habla arrastrada o dificultad para comprender lo que las personas dicen. T: time (tiempo). Es hora de llamar al 911. Anote la hora a la que comenzaron los s?ntomas. Otros signos de accidente cerebrovascular pueden ser los siguientes: Dolor de dinh repentino y muy intenso sin causa aparente. Ganas de vomitar. V?mitos. Estos s?ntomas pueden indicar luigi emergencia. Llame al 911 de inmediato. No espere a que los s?ntomas desaparezcan. No conduzca por theodora propios medios hasta el hospital. Esta informaci?n no tiene liz fin reemplazar el consejo del m?dico. Aseg?rese de hacerle al m?dicocualquier pregunta que tenga. Document Released: 2006-09-15 Document Updated: 2025-02-17 Document Reviewed: 2025-02-17 [employer] Patient Education ? 2024 [employer]. * Patient Education Note - Jennie Bradshaw MD - 07/22/2025 4:02 PM EDT Images from the original note were not included. Patient Education Table of Contents Ejercicios de Aicha (Kegel Exercises) To view videos and all your education online visit, [email or web address] or scan this QR code with your smartphone. Access to this content will in one year. Ejercicios de Kegel Kegel Exercises Los ejercicios de Keg[employer] pueden ayudar a fortalecer los m?sculos del suelo p?lvico. El suelo p?lvicoest?? formado por un parish de m?sculos que sostienen el recto, el intestino mitchell y la vejiga. Enlas mujeres, los m?sculos del suelo p?lvico tambi?n sostienen el ?tero. Estos m?sculos ayudan a controlar el flujo de orina y materia fecal (heces). Los ejercicios de Kegel son simples e indoloros. No requieren yevgeniy?n equipo. El m?dico puede sugerir ejercicios de Kegel para: Mejorar el control de la vejiga y los intestinos. Mejorar la respuesta sexual. Mejorar los m?sculos d?coni del suelo p?lvico despu?s de luigi cirug?a para extirpar el ?tero (histerectom?a) o de un embarazo, en las mujeres. Mejorar los m?sculos del suelo p?lvico d?coni despu?s de la extirpaci?n o cirug?a de la pr?stata, en los hombres. Los ejercicios de K[employer] involucran apretar los m?sculos del suelo p?lvico. Estos son los mismos m?sculos que se aprietan cuando se intenta detener el flujo de orina o evitar expulsar gases. Estos ejercicios se pueden realizar mientras est?? sentado, parado o acostado, patrica lo mejor es variar la posici?n. Pregunte al m?dico qu?? ejercicios son seguros para usted. Kody los ejercicios exactamente liz se lo haya indicado el m?dico y grad?elos liz se lo hayan indicado. No comience a hacer estos ejercicios hasta que se lo indique el m?dico. Ejercicios C?mo hacer los ejercicios de Kegel: 1. Contraiga con fuerza los m?sculos del suelo p?lvico. Debe sentir que el ?mila rectal se eleva y se tensa. Si es jasmyne, tambi?n debe sentir tensi?n en el ?mila vaginal. Mantenga el est?tatiana, las nalgas y las piernas relajadas. Mantenga los m?sculos tensos heidy 10?segundos liz m?ximo. Respire con normalidad. Relaje los m?sculos heidy un m?ximo de 10 segundos. Repita liz se lo haya indicado el m?dico. Repita marsha ejercicio a diario liz se lo haya indicado el m?dico. Contin?e haciendo marsha ejerciciodurante al menos 4 a 6?semanas o el tiempo que le haya indicado gould m?dico. Pueden derivarlo a un fisioterapeuta que lo puede ayudar a aprender m?s sobre c?mo hacer los ejercicios de Kegel. Seg?n sea gould estado, el m?dico puede recomendarle lo siguiente: Variar cu?nto tiempo contrae los m?sculos. Hacer varias series de ejercicios todos los d?as. Hacer ejercicios heidy varias semanas. Convertir los ejercicios de Kegel en parte de gould rutina de ejercicios habitual. Esta informaci?n no tiene liz fin reemplazar el consejo del m?dico. Aseg?rese de hacerle al m?dicocualquier pregunta que tenga. Document Released: 2013-09-01 Document Updated: 2022-02-14 Document Reviewed: 2022-02-14 Elsevier Patient Education ? 2024 [employer] * Patient Education Note - Jennie Bradshaw MD - 07/22/2025 3:55 PM EDT Images from the original note were not included. Patient Education Table of Contents Ejercicios despu?s de la reparaci?n del manguito rotador: amplitud del movimiento y elongaci?n (Exercises After Rotator Cuff Repair: Range of Motion and Stretching) To view videos and all your education online visit, [email or web address] or scan this QR code with your smartphone. Access to this content will in one year. Ejercicios despu?s de la reparaci?n del manguito rotador: amplitud del movimiento y elongaci?n Exercises After Rotator Cuff Repair: Range of Motion and Stretching Introducci?n Los ejercicios para el hombro pueden ayudarlo a recuperarse despu?s de luigi lesi?n. Kody solo los ejercicios que le hayan indicado. Aseg?rese de comprender c?mo hacer los ejercicios de manera garcia. Siga los pasos que se describena continuaci?n. Es normal sentir molestias leves. Det?ngase si siente dolor o el dolor empeora. No comience estos ejercicios hasta que el m?dico se lo indique. Ejercicios de elongaci?n y amplitud de movimiento Estos ejercicios precalientan los m?sculos y las articulaciones. Pueden mejorar la movilidad y la flexibilidad del hombro. La amplitud de movimiento significa cu?nto puede moverse luigi parte del cuerpo. En los ejercicios activos, se usan los m?sculos de los brazos para realizar el trabajo. P?ndulo del hombro En marsha ejercicio, el brazo lesionado se caridad colgando hacia el suelo y luego se lo balancea liz el p?ndulo de un reloj. 1. P?rese cerca de luigi khanna o encimera de la que pueda sostenerse para mantener el equilibrio. Incl?nese hacia adelante desde la cintura y deje caer el brazo laura/derecho. Use el otro brazopara sostenerse y ayudar a mantener el equilibrio. Relaje los m?sculos del brazo y el hombro laura/derecho, y mueva la cadera y el tronco de modo que el brazo laura/derecho se balancee libremente. El brazo debe balancearse por el movimiento del cuerpo, no por la fuerza de los m?sculos del brazo o el?hombro. Contin?e moviendo las caderas y el tronco de modo que el brazo se balancee en las siguientes direcciones, liz se lo haya indicado el m?dico: De lado a lado. Hacia adelante y hacia atr?s. En c?rculos, en el sentido de las agujas del reloj y en sentido contrario. Vuelva lentamente a la posici?n inicial. Repita veces. Kody marsha ejercicio ?veces por d?a. Flexi?n del hombro, sentado Marsha ejercicio a veces se denomina deslizamiento sobre luigi khanna. En marsha ejercicio, debe deslizar el brazo hacia dee del cuerpo hasta sentir un estiramiento en el hombro?lesionado. 1. Si?ntese en luigi silla estable de modo que el antebrazo laura/derecho pueda apoyarse en luigi superficie plana. El codo debe descansar a luigi altura en la que la parte superior del brazo est?? junto al cuerpo. Mantenga el hombro laura/derecho relajado, incl?nese hacia adelante desde la cintura y deje quela mano se deslice hacia adelante (flexi?n). Det?ngase cuando sienta un estiramiento en el hombro ocuando llegue al ?ngulo recomendado por el m?dico. Mantenga esta posici?n heidy segundos. Vuelva a la posici?n inicial lentamente. Repita veces. Kody marsha ejercicio ?veces por d?a. Abducci?n del hombro, activa-asistida Necesitar?? un quinton?n, un kasia de escoba o un objeto similar para ayudarse (asistir) a fin de hacereste ejercicio. 1. Acu?stese boca arriba. Esta es la posici?n de dec?bito supino. Sostenga un kasia de escoba, un quinton?n o un objeto similar. Coloque las neo separadas a luigi distancia un poco mayor que el ancho de theodora hombros. La mano izquierda/derecha debe estar con la gary hacia arriba, y la otra mano debe estar con la gary hacia abajo. Manteniendo el hombro relajado, empuje el objeto para levantar el brazo laura/derecho a un costado del cuerpo (abducci?n) y luego por encima de la dinh. Use la otra mano para ayudar a health education coordinator el kasia. Det?ngase cuando sienta un estiramiento en el hombro o cuando llegue al ?ngulo recomendado porel m?dico. Evite encoger el hombro mientras levanta el brazo. Mantenga los om?platos juntos, ll?velos hacia elcentro de la espalda. Mantenga esta posici?n heidy segundos. Vuelva a la posici?n inicial lentamente. Repita veces. Kody masrha ejercicio ?veces por d?a. Flexi?n del hombro, activa-asistida 1. Acu?stese boca arriba. Puede flexionar las rodillas para estar c?modo. Sostenga un kasia de escoba, un quinton?n o un objeto similar de modo que las neo est?n aproximadamente a la distancia del ancho de los hombros. Las dagoberto deben apuntar hacia abajo, en direcci?n a lospies. Levante el brazo laura/derecho sobre la dinh y hacia atr?s de la dinh, en direcci?n al suelo (flexi?n). Use la otra mano para ayudarse (activa- asistida). Det?ngase cuando sienta un estiramiento en el hombro o cuando llegue al ?ngulo recomendado por el m?dico. Mantenga esta posici?n heidy segundos. Use el kasia y el otro brazo liz ayuda para que el brazo laura/derecho regrese a la posici?n inicial. Repita veces. Kody marsha ejercicio ?veces por d?a. Rotaci?n externa 1. Si?ntese en luigi silla estable que no tenga apoyabrazos o p?ngase de pie. Coloque un objeto blando, liz luigi toalla doblada o luigi pelota umer?a, debajo la peter superior delbrazo laura/derecho. Sostenga un kasia de escoba, un quinton?n o un objeto similar con las dagoberto hacia abajo, en direcci?n al suelo. Flexione los codos a 90?grados (?ngulo recto) y mantenga las neo a luigi distancia aproximada del ancho de los hombros. Empuje el quinton?n hacia el lado laura/derecho. Mantenga el brazo laura/derecho flexionado. [place] aarti?? rotar el antebrazo laura/derecho en direcci?n contraria a gould cuerpo (rotaci?n externa). Mantenga esta posici?n heidy segundos. Vuelva a la posici?n inicial lentamente. Repita veces. Kody marsha ejercicio ?veces por d?a. Esta informaci?n no tiene liz fin reemplazar el consejo del m?dico. Aseg?rese de hacerle al m?dicocualquier pregunta que tenga. Document Released: 2024-09-15 Document Updated: 2024-09-15 Document Reviewed: 2024-09-15 [employer] Patient Education ? 2024 [employer]. documented in this encounter Plan of Treatment Not on file documented as of this encounter Procedures Procedure Name Priority Date/Time Associated Diagnosis Comments XR SHOULDER 2+ VIEWS LEFT Routine 07/22/2025 12:48 PM EDT Chronic left shoulder pain XR KNEE 3 VIEWS LEFT Routine 07/22/2025 12:41 PM EDT Arthritis of left knee documented in this encounter Results * XR Shoulder 2+ Views Left (07/22/2025 12:48 PM EDT) Anatomical Region Laterality Modality Upper Extremities, Shoulder Left Radi ographic Imaging 07/22/2025 12:4 8 PM EDT Narrative 07/22/2025 12:58 PM EDT [facility] [address] [place] [address] XRay Report Signed Patient: Mariajose Moreno MR#: [id number] : 1955 Acct:[id number] Age/Sex: 69 / F ADM Date: 07/22/25 Loc: HO.HHCX Attending Dr: Jennie Bradshaw MD Ordering Physician: Jennie Bradshaw MD Date of Service: 07/22/25 Procedure(s): XR shoulder LT min 2V Accession Number(s): [id number] cc: Jennie Bradshaw MD Reason for Exam: left rotator cuff tendinitis EXAMINATION: XR KNEE, LEFT CLINICAL INFORMATION: left knee OA COMPARISON: July 10, 2018 TECHNIQUE: AP lateral and sunrise views. of the left knee. FINDINGS: No acute cortical disruption or malalignment. Mild asymmetric joint space narrowing with mild sclerosis along the articular surface involving the medial compartment. Small marginal osteophyte formation and medial femoral condyle and medial tibial plateau. No suprapatellar bursa joint effusion. No lytic or blastic lesions. No soft tissue calcifications. XR/XR shoulder LT min 2V IMPRESSION: Mild medial compartment osteoarthrosis/osteoarthritis. EXAMINATION: XR SHOULDER, LEFT CLINICAL INFORMATION: left knee OA COMPARISON: May 17, 2015. TECHNIQUE: AP external rotation, Grashey, scapular Y, and axillary views of the left shoulder. FINDINGS: No acute cortical disruption or malalignment. No lytic or blastic lesions. No metallic or radiopaque foreign body. Well-corticated the abnormality in the acromion. No soft tissue calcifications. IMPRESSION: Mild degenerative changes. Electronically signed by: Alden Solorio MD 07/22/2025 12:55 PM EDT RP Dictated By: Alden Ibanez MD Signed By: <Electronically signed by Alden Jama MD in OV> 07/22/25 1255 DD/ 1248 TD/TT: 07/22/25 1250 [employer] Professor: Procedure Note Donotuseinterpreter, Image - 07/22/[address] [address] XRay Report Signed Patient: Mariajose MorenoMR#: [id number] : 1955cct:[id number] Age/Sex: 69 / FADM Date: 07/22/25 Loc: HO.HHCX Attending Dr: Jennie Bradshaw MD Ordering Physician: Jennie Bradshaw MD Date of Service: 07/22/25 Procedure(s): XR shoulder LT min 2V Accession Number(s): [id number] cc: Jennie Bradshaw MD Reason for Exam: left rotator cuff tendinitis EXAMINATION: XR KNEE, LEFT CLINICAL INFORMATION: left knee OA COMPARISON: July 10, 2018 TECHNIQUE: AP lateral and sunrise views. of the left knee. FINDINGS: No acute cortical disruption or malalignment. Mild asymmetric joint space narrowing with mild sclerosis along the articular surface involving the medial compartment. Small marginal osteophyte formation and medial femoral condyle and medial tibial plateau. No suprapatellar bursa joint effusion. No lytic or blastic lesions. No soft tissue calcifications. XR/XR shoulder LT min 2V IMPRESSION: Mild medial compartment osteoarthrosis/osteoarthritis. EXAMINATION: XR SHOULDER, LEFT CLINICAL INFORMATION: left knee OA COMPARISON: May 17, 2015. TECHNIQUE: AP external rotation, Grashey, scapular Y, and axillary views of the left shoulder. FINDINGS: No acute cortical disruption or malalignment. No lytic or blastic lesions. No metallic or radiopaque foreign body. Well-corticated the abnormality in the acromion. No soft tissue calcifications. IMPRESSION: Mild degenerative changes. Electronically signed by: Alden Solorio MD 07/22/2025 12:55 PM EDT Dictated By: Alden Ibanez MD Signed By: <Electronically signed by Alden Jama MDin OV> 07/22/25 1255 DD/ 1248 TD/TT: 07/22/25 1250 Plant Sciences Professor: us Jennie Bradshaw MD IMG XR PROCEDURES Final Result * XR Knee 3 Views Left (07/22/2025 12:41 PM EDT) Anatomical Region Laterality Modality Lower Extremities, Knee Left Radiogra phic Imaging 07/22/2025 12:4 1 PM EDT Narrative 07/22/2025 12:58 PM EDT [facility] [address] [place] [address] XRay Report Signed Patient: Mariajose Moreno MR#: [id number] : 1955 Acct:[id number] Age/Sex: 69 / F ADM Date: 07/22/25 Loc: HO.HHCX Attending Dr: Jennie Bradshaw MD Ordering Physician: Jennie Bradshaw MD Date of Service: 07/22/25 Procedure(s): XR knee LT 3V Accession Number(s): [id number] cc: Jennie Bradshaw MD Reason for Exam: left knee OA EXAMINATION: XR KNEE, LEFT CLINICAL INFORMATION: left knee OA COMPARISON: July 10, 2018 TECHNIQUE: AP lateral and sunrise views. of the left knee. FINDINGS: No acute cortical disruption or malalignment. Mild asymmetric joint space narrowing with mild sclerosis along the articular surface involving the medial compartment. Small marginal osteophyte formation and medial femoral condyle and medial tibial plateau. No suprapatellar bursa joint effusion. No lytic or blastic lesions. No soft tissue calcifications. XR/XR knee LT 3V IMPRESSION: Mild medial compartment osteoarthrosis/osteoarthritis. EXAMINATION: XR SHOULDER, LEFT CLINICAL INFORMATION: left knee OA COMPARISON: May 17, 2015. TECHNIQUE: AP external rotation, Grashey, scapular Y, and axillary views of the left shoulder. FINDINGS: No acute cortical disruption or malalignment. No lytic or blastic lesions. No metallic or radiopaque foreign body. Well-corticated the abnormality in the acromion. No soft tissue calcifications. IMPRESSION: Mild degenerative changes. Electronically signed by: Alden Solorio MD 07/22/2025 12:55 PM EDT Dictated By: Alden Ibanez MD Signed By: <Electronically signed by Alden Jama MD in OV> 07/22/25 1255 DD/ 1241 TD/TT: 07/22/25 1242 Plant Sciences Professor: Procedure Note Donotuseinterpreter, Image - 07/22/[address] [address] XRay Report Signed Patient: Mariajose MorenoMR#: M [id number] : 1955cct:[id number] Age/Sex: 69 / FADM Date: 07/22/25 Loc: HO.HHCX Attending Dr: Jennie Bradshaw MD Ordering Physician: Jennie Bradshaw MD Date of Service: 07/22/25 Procedure(s): XR knee LT 3V Accession Number(s): [id number] cc: Jennie Bradshaw MD Reason for Exam: left knee OA EXAMINATION: XR KNEE, LEFT CLINICAL INFORMATION: left knee OA COMPARISON: July 10, 2018 TECHNIQUE: AP lateral and sunrise views. of the left knee. FINDINGS: No acute cortical disruption or malalignment. Mild asymmetric joint space narrowing with mild sclerosis along the articular surface involving the medial compartment. Small marginal osteophyte formation and medial femoral condyle and medial tibial plateau. No suprapatellar bursa joint effusion. No lytic or blastic lesions. No soft tissue calcifications. XR/XR knee LT 3V IMPRESSION: Mild medial compartment osteoarthrosis/osteoarthritis. EXAMINATION: XR SHOULDER, LEFT CLINICAL INFORMATION: left knee OA COMPARISON: May 17, 2015. TECHNIQUE: AP external rotation, Grashey, scapular Y, and axillary views of the left shoulder. FINDINGS: No acute cortical disruption or malalignment. No lytic or blastic lesions. No metallic or radiopaque foreign body. Well-corticated the abnormality in the acromion. No soft tissue calcifications. IMPRESSION: Mild degenerative changes. Electronically signed by: Alden Solorio MD 07/22/2025 12:55 PM EDT RP Dictated By: Alden Ibanez MD Signed By: <Electronically signed by Alden Jama MDin OV> 07/22/25 1255 DD/ 1241 TD/TT: 07/22/25 1242 Plant Sciences Professor: us Jennie Bradshaw MD IMG XR PROCEDURES Final Result documented in this encounter Visit Diagnoses Diagnosis Primary hypertension- Primary Unspecified essential hypertension High liver transaminase level Chronic left shoulder pain Pain in joint, shoulder region Arthritis of left knee Arthrosis of foot, right Mixed stress and urge urinary incontinence Mixed incontinence urge and stress (male)(female) documented in this encounter Additional Health Concerns Assessment Noted Time PHQ-9 Depression Total Score: 1 07/22/20 11:30 AM EDT documented as of this encounter Care Teams Deputy Assessor Relationship Specialty Start Date End Date Jennie Bradshaw MD [address] [place] [address] PCP - General Internal Medicine 03/22/25 documented as of this encounter
--- OUTSIDE RECORDS SUMMARY | 2025-07-22 14:20 | XMS_ITS | Encounter Summary ---
Author Organization [employer] Address [address] [place] [address] 7 [place] [address] Care Team Providers Care Mailroom Coordinator Name Role Phone Jennie Bradshaw MD Primary Care Provider + Reason for Visit * Reason Onset Date Comments New patient Request 06/24/2024 Encounter Details Date Type Department Care Team ([facility] st Contact Info) Description 06/24/2024 Telephone [facility] [address] [place], [place] [phone] Noé Franco MD [address] [place], [place] [phone] New patient Request Social History Tobacco Use Types Packs/Day Years Used Date Smoking Tobacco: Never Assessed Comments Unknown Sex and Gender Information Value Date Recorded Sex Assigned at Female 07/29/2022 10:31 AM EDT Legal Sex Female 10:31 AM EDT Gender Identity Choose not to disclose 8:59 AM EDT Sexual Orientation Don't know 03/21/2025 9: 00 AM EDT documented as of this encounter Miscellaneous Notes * Telephone Encounter - Estefanía Marquez - 06/24/2024 9:56 AM EDT Patient added to [facility] New Patient wait list as 06/24/2024 * Telephone Encounter - Trev Ireland - 06/24/2024 9:33 AM EDT Tc from Mariajose Jay requesting to become a patient at [facility] currently haves CCA [id number] patient haves High Blood Pressure documented in this encounter Plan of Treatment Not on file documented as of this encounter Visit Diagnoses Not on filedocumented in this encounter Care Teams Mailroom Coordinator Relationship Specialty Start Date End Date Jennie Bradshaw MD [address] [place] [phone] PCP - General Internal Medicine 03/22/25 documented as of this encounter
--- OUTSIDE RECORDS SUMMARY | 2025-07-22 14:21 | XMS_ITS | Clinical Summary ---
Author Organization [employer] Address [address] [place] [address] 7t [place] [address] Care Team Providers Care Partner Marketing Intern Name Role Phone Jennie Bradshaw MD Primary Care Provider + Allergies No known active allergies Medications Blood Pressure Monitoring (Blood Pressure Cuff) misc Use daily as prescribed 1 each 03/22/20 25 Active Diclofenac Sodium 1 % gelIndications :Chronic heel pain, right APPLY 1 INCH TOPICALLY IN THE MORNING AND AT BEDTIME NEEDED FOR PAIN 100 g 07/01/20 25 Active Diclofenac Sodium 1 % gelIndications :Chronic heel pain, right APPLY 1 INCH TOPICALLY IN THE MORNING AND AT BEDTIME NEEDED FOR PAIN 100 g 05/31/20 25 025 Discontinued(Re order (will not trigger notification to Pharmacy)) Active Problems Problem Noted Date Diagnosed Date Chronic left shoulder pain 07/22/2025 Arthritis of left knee 07/22/2025 Arthrosis of foot, right 07/22/2025 Mixed stress and urge urinary incontinence 07/22 Chronic heel pain, right 03/22/2025 Assessment & Plan (03/22/2025 2:10 PM EDT): Most likely plantars poor, will order x-rays Advised to use plantar pad and follow-up at next visit, can use diclofenac gel as needed Primary hypertension 03/22/2025 Assessment & Plan (03/22/2025 2:08 PM EDT): She is not taking any medication, claims concern regarding potential side effects of medications and reportedly her BP has been controlled so far. We have a lengthy discussion regarding side effects/consequences of uncontrolled hypertension both short and long-term including headache, palpitation, CHF, CVA, CAD. We discussed about going to ED if she develops persistent headache, weakness, chest pain, PEREZ, or neurological deficits including numbness. She will start taking BP daily and follow-up with RN in 7 to 10 days or earlier if BP is above 150/90 for more than 3 days. She will follow-up with me in 3 to 4 weeks Follow up with the Nurse for blood pressure check in 1 week. Continue with a low sodium diet and regular exercise as tolerated. For BP < or = to 139/89 (or 129/79 for diabetic patients) continue off meds and follow up with PCP in 3 weeks. For BP > or = to 140/90 (or 130/80 for diabetic patients) start Losartan 50 mg once a day, she should have a PCP appointment in 3 to 4 weeks max to adjust medications. If second Nurse visit is needed (in case there is no PCP appointment available 2 to 3 weeks after the first RN visit): For BP < or = to 139/89 (or 129/79 for diabetic patients) continue losartan same dose and follow up with the PCP in 3 weeks. For BP > or = to 140/90 (or 130/80 for diabetic patients) increase Losartan to 100 mg once a day Follow up with the PCP in 3 weeks. Hyperglycemia 03/22/2025 Assessment & Plan (03/22/2025 2:10 PM EDT): Rule out diabetes, order labs prior to next appointment. Agreed to be referred to dietitian, also due to history of mild hypercholesterolemia and hypertension High liver transaminase level 03/22/2025 Assessment & Plan (03/22/2025 2:10 PM EDT): Will repeat LFTs in 3 to 6 months Encounters Date Type Department Care Team Description 07/22/2025 11:30 AM EDT Office Visit [facility] [address] [place] [address] Jennie Bradshaw MD Primary hypertension (Primary Dx); High liver transaminase level; Chronic left shoulder pain; Arthritis of left knee; Arthrosis of foot, right; Mixed stress and urge urinary incontinence 07/22/2025 Travel 07/21/2025 Telephone [facility] [address] [place] [phone] Jennie Bradshaw MD Chart Prep 07/07/2025 Telephone [facility] [address] [place] [address] Jennie Bradshaw MD Durable Medical Equipment 07/01/2025 Telephone [facility] [address] [place] [address] Jennie Bradshaw MD Medication Question 07/01/2025 Telephone [facility] [address] [place] [address] Jennie Bradshaw MD Nurse Triage 07/01/[address] [address] Jennie Bradshaw MD Durable Medical Equipment 07/01/2025 Refill [facility] [address] [place] [address] Jennie Bradshaw MD Chronic heel pain, right 05/27/2025 Refill [facility] [address] [place] [address] Jennie Bradshaw MD Chronic heel pain, right 04/27/[address] [address] Jennie Bradshaw MD Referral from Last 3 Months Social History Tobacco [...] Don't know 03/21/2025 9: 00 AM EDT Last Filed Vital Signs Vital Sign Reading [...] Mass Index 26.43 07/22/2025 11:28 AM EDT Plan of Treatment Health Maintenance Due Date Last Done Comments CT Colonography 1955 Colonoscopy 1955 FIT 1955 Lipid Panel 1955 Sigmoidoscopy 1955 Hepatitis C Screening 1974 Zoster Vaccines (1 of 2) 2006 FOBT 07/26/2025 07/26/2024, 05/30/2020 COVID-19 Vaccine ( season) 2026 07/05/2025, 10/19/2022, 02/04/2022, Additional history exists Mammogram 01/27/2026 01/27/2025 SDOH Screening 03/22/2026 03/22/2025 Alcohol/Substance Use Screening 07/22/2026 07/22/2025 Depression Screening 07/22/2026 07/22/2025, 07/22/20 25 Tobacco Screening 07/22/2026 07/22/2025 DTaP/Tdap/Td Vaccines (2 - Td or Tdap) 06/25/2027 06/25/2017 Colorectal Cancer Screening 07/26/2027 FIT DNA/Cologuard 07/26/2027 07/26/2024, 05/30/2020 RSV Patients and Patients Aged 60 years or older (1 - 1-dose 75+ series) 12/01/2031 Pneumococcal Vaccine: 50+ Years Completed 07/13/2022 Influenza Vaccine Completed 07/05/2025, , 08/06/2021, Additional history exists HIB Vaccines Aged Out No longer eligi [...] patient's age to complete this topic Meningococcal B Vaccine Aged Out No l onger eligible based on patient's age to complete this topic Meningococcal Vaccine Aged Out No janis khloe eligible based on patient's age to complete this topic RSV under 20 months Aged Out No longe r eligible based on patient's age to complete this topic Rotavirus Vaccines Aged Out No longer eligible based on patient's age to complete this topic Procedures Procedure Name Priority Date/Time Associated Diagnosis Comments XR SHOULDER 2+ VIEWS LEFT Routine 07/22/2025 12:48 PM EDT Chronic left shoulder pain XR KNEE 3 VIEWS LEFT Routine 07/22/2025 12:41 PM EDT Arthritis of left knee HM MAMMOGRAPHY Routine 01/27/2025 from Last 3 Months or Most Recently Relevant to Health Maintenance Results * XR Shoulder 2+ Views Left (07/22/2025 12:48 PM EDT) Anatomical Region Laterality Modality Upper Extremities, Shoulder Left Radi ographic Imaging 07/22/2025 12:4 8 PM EDT Narrative 07/22/2025 12:58 PM EDT [address] [address] XRay Report Signed Patient: Mariajose Moreno MR#: M [id number] : 1955 Acct:[id number] Age/Sex: 69 / F ADM Date: 07/22/25 Loc: HO.HHCX Attending Dr: Jennie Bradshaw MD Ordering Physician: Jennie Bradshaw MD Date of Service: 07/22/25 Procedure(s): XR shoulder LT min 2V Accession Number(s): [id number] cc: Jennie Bradshaw MD Reason for Exam: [...] 07/22/25 1255 DD/ 1248 TD/TT: 07/22/25 1250 Metalworker: Procedure Note Donotuseinterpreter, Image - 07/22/[address] [address] XRay Report Signed Patient: Mariajose Moreno#: M [id number] : 1955cct:[id number] Age/Sex: 69 / FADM Date: 07/22/25 Loc: .HHCX Attending Dr: Jennie Bradshaw MD Ordering Physician: Jennie Bradshaw MD Date of Service: 07/22/25 Procedure(s): XR shoulder LT min 2V Accession Number(s): [id number] cc: Jennie Bradshaw MD Reason for Exam: [...] 07/22/25 1255 DD/ 1248 TD/TT: 07/22/25 1250 Metalworker: us Jennie Bradshaw MD IMG XR PROCEDURES Final Result * XR Knee 3 Views Left (07/22/2025 12:41 PM EDT) Anatomical Region Laterality Modality Lower Extremities, Knee Left [facility] 07/22/2025 12:4 1 PM EDT Narrative 07/22/2025 12:58 [place] [address] XRay Report Signed Patient: Mariajose Moreno MR#: M [id number] : 1955 Acct:[id number] Age/Sex: 69 / F ADM Date: 07/22/25 Loc: .HHCX Attending Dr: Jennie Bradshaw MD Ordering Physician: Jennie Bradshaw MD Date of Service: 07/22/25 Procedure(s): XR knee LT 3V Accession Number(s): [id number] cc: Jennie Bradshaw MD Reason for Exam: [...] 07/22/25 1255 DD/ 1241 TD/TT: 07/22/25 1242 Metalworker: Procedure Note Donotuseinterpreter, Image - 07/22/2025 [place] [address] XRay Report Signed Patient: Mariajose MorenoMR#: M [id number] : 1955cct:[id number] Age/Sex: 69 / FADM Date: 07/22/25 [facility]: Jennie Bradshaw MD Ordering Physician: Jennie Bradshaw MD Date of Service: 07/22/25 Procedure(s): XR knee LT 3V Accession Number(s): [id number] cc: Jennie Bradshaw MD Reason for Exam: [...] 07/22/25 1255 DD/ 1241 TD/TT: 07/22/25 1242 Metalworker: us Jennie Bradshaw MD IMG XR PROCEDURES Final Result * Mammography (01/27/2025) Mammogram Normal Normal, Abnormal, BIRADS 1 , BIRADS 2 Anatomical Region Laterality Modality Other us Jennie Bradshaw MD HEALTH MAINTENANCE Final Result from Last 3 Months or Most Recently Relevant to Health Maintenance Insurance [facility] (O D-SNP) Member Subscriber Plan / Payer (Ef fective 2025-Present) Name:Mariajose Jay Relation to Subscriber:Self Name:Mariajose Jay Payer ID:Not on file [place] [place] Address: [address] [place] [address] [place] [address] Care Teams Partner Marketing Intern Relationship Specialty Start Date End Date Jennie Bradshaw MD [address] [place] [phone] PCP - General Internal Medicine 03/22/25
--- OUTSIDE RECORDS SUMMARY | 2025-07-22 14:21 | XMS_ITS | Encounter Summary ---
Author Organization [employer] Address [address] [place] [address] 7 [place] [address] Care Team Providers Care Bander Hand Name Role Phone Jennie Bradshaw MD Primary Care Provider + Reason for Visit * Reason Onset Date Comments Appointment Request 03/31/2025 Call Back Request 03/31/2025 Encounter Details Date Type Department Care Team ([facility] Contact Info) Description 03/31/2025 Telephone [facility] [address] [place], [place] [phone] Jennie Bradshaw MD [address] [place] [address] Appointment Request; Call Back Request Social History Tobacco Use Types Packs/Day [...] encounter Miscellaneous Notes * Telephone Encounter - Jes Chauhan - 04/04/2025 1:01 PM EDT Tc from to requesting a call back regarding prior message. Contact pt at [phone] (sami) * Telephone Encounter - Yevgeniy Shaver - 03/31/2025 1:43 PM EDT TC from pt wanting to schedule strategy planning consultant visit . documented in this encounter Plan of Treatment Not on file documented as of this encounter Visit Diagnoses Not on filedocumented in this encounter Care Teams Bander Hand Relationship Specialty Start Date End Date Jennie Bradshaw MD [address] [place] [phone] PCP - General Internal Medicine 03/22/25 documented as of this encounter
--- OUTSIDE RECORDS SUMMARY | 2025-07-22 14:21 | XMS_ITS | Encounter Summary ---
Author Organization [employer] Address [address] 7[address] [place] [address] Care Team Providers Care Surgical Dressing Maker Name Role Phone Jennie Bradshaw MD Primary Care Provider + Encounter Details Date Type Department Care Team (Latest Contact Info) Description 07/22/2025 Travel Social History Tobacco Use Types Packs/Day [...] as of this encounter Functional Status * Over the [...] Author Not at all 07/22/2025 11:30 AM Phyllis Jenkins MA * Thoughts that you would be better off or hurting yourself in some way Answer Date of Assessment Author Not at all 07/22/2025 11:30 AM Phyllis Jenkins MA * Patient Health Questionnaire-9 Score Answer Date of Assessment Author 1 07/22/2025 11:30 AM Phyllis Jenkins MA * How difficult have these problems made it for you to do your work, take care of things at home, or get along with other people? Answer Date of Assessment Author Not difficult at all 07/22/2025 11:30 AM Phyllis An MA * Over the last 2 weeks, how often have you been bothered by any of the following problems? Question Answer Date of Assessment Author Feeling nervous, anxious, or on edge 0 07/22/2025 11:29 AM Phyllis Campos MA Not being able to stop or control worrying 1 07/22/2025 11:29 AM Phyllis Campos MA Worrying too much about different things 1 07/22/2025 11:29 AM Phyllis Campos MA Trouble relaxing 1 07/22/2025 11:29 AM Phyllis Campos MA Being so restless that it is hard to sit still 0 07/22/2025 11:29 AM Phyllis Campos MA Becoming easily annoyed or irritable 0 07/22/2025 11:29 AM Phyllis Campos MA Feeling afraid as if something awful might happen 0 07/22/2025 11:29 AM Phyllis Jones MA CHEN-7 Total Score 3 07/22/2025 11:29 AM Phyllis Campos MA documented as of this encounter Plan of Treatment Not on file documented as of this encounter Visit Diagnoses Not on filedocumented in this encounter Additional Health Concerns Assessment Noted Time PHQ-9 Depression Total Score: 1 07/22/20 25 11:30 AM EDT documented as of this encounter Care Teams Surgical Dressing Maker Relationship Specialty Start Date End Date Jennie Bradshaw MD [address] [place] [phone] PCP - General Internal Medicine 03/22/25 documented as of this encounter
--- OUTSIDE RECORDS SUMMARY | 2025-07-22 14:21 | XMS_ITS | Encounter Summary ---
Author Organization [employer] Address [address] [facility] 7 [place] [address] Care Team Providers Care Alteration Specialist Name Role Phone Jennie Bradshaw MD Primary Care Provider + Reason for Visit * Reason Onset Date Comments Chart Prep 07/21/2025 Encounter Details Date Type Department Care Team ([facility] Contact Info) Description 07/21/2025 Telephone [facility] [address] [place], [place] [phone] Jennie Bradshaw MD [address] [place] [address] Chart Prep Social History Tobacco Use Types Packs/Day Years [...] encounter Miscellaneous Notes * Telephone Encounter - Rosalia Holt MA - 07/21/2025 1:57 PM EDT Chart Prep Labs: done Images: done Referrals: appointment pending Vaccines due: Zoster Screenings: Hep C Screening Overdue care gaps: SBIRT, PHQ-9, and CHEN-7 documented in this encounter Plan of Treatment Not on file documented as of this encounter Visit Diagnoses Not on filedocumented in this encounter Care Teams Alteration Specialist Relationship Specialty Start Date End Date Jennie Bradshaw MD [address] [place] [address] PCP - General Internal Medicine 03/22/25 documented as of this encounter
--- OUTSIDE RECORDS SUMMARY | 2025-07-22 14:21 | XMS_ITS | Encounter Summary ---
Author Organization [employer] Address [address] [facility] 7 [place] [address] Care Team Providers Care University Lecturer Name Role Phone Jennie Bradshaw MD Primary Care Provider + Reason for Visit * Reason Onset Date Comments Durable Medical Equipment 07/07/2025 Encounter Details Date Type Department Care Team ([facility] st Contact Info) Description 07/07/2025 Telephone [facility] [address] [place], [place] [phone] Jennie Bradshaw MD [address] [place] [address] Durable Medical Equipment Social History Tobacco Use Types Packs/Day Years [...] t he electric, gas, oil or water copygram threatened to shut off services in your [...] * Telephone Encounter - Jes Chauhan - 07/07/2025 3:30 PM EDT Tc from pt requesting DME order for bed pads and wipes to be faxed too [facility] Contact pt at [phone] (bahamian) documented in this encounter Plan of Treatment Not on file documented as of this encounter Visit Diagnoses Not on filedocumented in this encounter Care Teams University Lecturer Relationship Specialty Start Date End Date Jennie Bradshaw MD [address] [place] [address] PCP - General Internal Medicine 03/22/25 documented as of this encounter
== END 2025-07-22 12:15 | disposition home or self-care (01) ==
LOC: HO.HHCX 12:14
PROVIDERS: PCP Internal Medicine; Visit Provider Internal Medicine
DX: M17.12 Unilateral primary osteoarthritis, left knee (principal); M25.512 Pain in left shoulder; G89.29 Other chronic pain
CPT/HCPCS: 73030; 73562

== ENCOUNTER → 2025-07-22 12:17 | Outpatient (BNV) | payer OTHER, SELFPAY | PROVIDERS: PCP Internal Medicine; Visit Provider Radiology Diagnostic Radiology | DX: M17.12 Unilateral primary osteoarthritis, left knee (principal); M65.812 Other synovitis and tenosynovitis, left shoulder | CPT/HCPCS: 73030; 73562 ==